=== PATIENT | female | born 1945 | race Two or more races ===

== ENCOUNTER 2018-04-18 12:22 | Inpatient (IN) | payer MEDICARE ==
[~2018-04-18] VITALS: Ht 152.4 cm; Wt 40.5 kg
[~2018-04-18 12:22] MED LIST: ASPI-482 PO; CHOL200044 PO; CLOP75TA PO; CRESTOR40 MG PO; INSU100V8 SQ; LISI-338 PO; METF10007 PO; PIOG30TA62 PO
[2018-04-18] MEDS ORDERED: IV NORMAL SALINE 1000ML BAG 1,000 ML IV ONE (13:15)
[2018-04-18] MEDS ORDERED: FAMOTIDINE 20 MG/2 ML VIAL IVP ONE (13:15)
[2018-04-18 13:32] LABS: BASO % 1 % (0-3); EOS % 0 % (0-3); HEMATOCRIT 42.8 % (36.0-47.0); LYMPH # 0.8 x10^3/uL (1.0-4.8); LYMPH % 14 % (24-48); MEAN CORPUSCULAR HEMOGLOBIN 31 pg (25-35); MEAN CORPUSCULAR HGB CONC 33 g/dL (31-37); MEAN CORPUSCULAR VOLUME 94 fL (79-100); MONO # 0.3 x10^3/uL (0.0-1.1); MONO % 5 % (0-9); NEUT # 4.9 x10^3uL (1.8-7.7); NEUT % 80 % (31-73); PLATELET COUNT 342 x10^3/uL (140-400); RED BLOOD COUNT 4.55 x10^6/uL (3.50-5.40); RED CELL DISTRIBUTION WIDTH 13.2 % (11.5-14.5); WHITE BLOOD COUNT 6.1 x10^3/uL (4.0-11.0)
[2018-04-18] MEDS ORDERED: BARIUM SULFATE 96% 397 GM ENEMA. PR ONE (14:00)
[2018-04-18] MEDS ORDERED: BARIUM SULFATE 60% 355 ML SUSP PO ONE (14:00)
[2018-04-18 14:14] LABS: CALCIUM 8.9 mg/dL (8.5-10.1); CREATININE 0.6 mg/dL (0.6-1.0)
[2018-04-18 14:21] LABS: ALBUMIN 3.5 g/dL (3.4-5.0); ALBUMIN/GLOBULIN RATIO 1.1 (1.0-1.7); TOTAL BILIRUBIN 0.3 mg/dL (0.2-1.0); TOTAL PROTEIN 6.8 g/dL (6.4-8.2)
--- NOTE | 2018-04-18 14:48 | RAD ---
EXAM: Chest, 2 views. HISTORY: Dysphagia. COMPARISON: None. FINDINGS: 2 views of the chest are obtained. There is emphysema with biapical pleural parenchymal scarring. There is no infiltrate, pleural effusion or pneumothorax. There is mild enlargement of the cardiac silhouette. There is thoracolumbar scoliosis. IMPRESSION: 1. Emphysema with apical pleural-parenchymal scarring. 2. Cardiomegaly. Electronically signed by: Eloina Enriquez MD (04/18/2018 2:46 PM) [id number]
[2018-04-18 14:58] LABS: BILIRUBIN,URINE MODERATE (NEG); CLARITY,URINE CLEAR; COLOR,URINE YELLOW; NITRITE,URINE NEGATIVE (NEG); PROTEIN,URINE 100 mg/dL (NEG-TRACE)
--- NOTE | 2018-04-18 15:11 | RAD ---
Esophagram, 04/18/2018: HISTORY: Dysphagia Study was performed utilizing thin liquid barium. 3.0 minutes of fluoroscopy time was utilized. 8 static and dynamic fluoroscopic sequence is were recorded. The exam was limited due to patient nausea and subsequent vomiting. The swallowing mechanism is intact. No obstructive process is seen in the cervical esophagus. No aspiration was observed. There is partial obstruction to flow of the liquid barium through the upper thoracic esophagus due to a severe smooth stricture. This narrowing begins at the level of the aortic arch and extends inferiorly approximately 3-4 cm. The esophagus narrows down to a diameter of 3-4 mm at its narrowest point. The esophagus superior to this level is dilated and contains fluid and some debris. Inferior to this level the esophagus is not optimally distended due to the partial obstructive effect at the stricture, however, no distal esophageal abnormality or hiatal hernia was identified. IMPRESSION: Severe upper thoracic esophageal stricture which could be neoplastic or inflammatory. Endoscopic evaluation is suggested. Electronically signed by: Karthik Barber MD (04/18/2018 3:08 PM) [facility]
[2018-04-18 15:20] LABS: BACTERIA,URINE MANY /HPF (0-FEW); HYALINE CASTS, URINE FEW /HPF; RBC,URINE 0 /HPF (0-2); SQUAMOUS EPITHELIAL CELL,UR MANY /LPF; WBC,URINE >40 /HPF (0-4)
[2018-04-18] MEDS ORDERED: ONDANSETRON PF 4 MG/2 ML VIAL. IV PRN (15:45)
[2018-04-18] MEDS ORDERED: fentaNYL PF VIAL 100 MCG/2 ML VIAL IV PRN (15:45)
--- NOTE | 2018-04-18 16:06 | PDOC1 ---
History and Physical Date of Admission Date of Admission DATE: 04/18/18 TIME: 16:00 Identification/Chief Complaint Chief Complaint cant swallow pills or water x 5 days Source Source: Caregiver, Chart review, Patient History of Present Illness History of Present Illness VEry pleasant 72 F good IADLs and ADLS, cant swallow pills & water x 5 days, raspy voice x 5 days, 4 lb weight loss they claim bec cant take anything just for daniel last few days, Prev smoker, quit 7 mos ago, smoked x 40 yrs, NO other probs aside from DM on insulin 6 units qhs and oHA and lisinopril 5 for proteinuria, Sandra BROWN mD, ordered esophagogram, severe stenosis Upper 1/3 esophagus, cant r.o malignancy or inflammation, Admitted henceforth She is aware of findings Past Medical History Renal/: Other (proteinuria) Endocrine: Diabetes Past Surgical History Past Surgical History: No pertinent history Family History Family History: No Significant Social History Smoke: Quit ALCOHOL: none Drugs: None Current Medications Current Medications Current Medications Sodium Chloride 1,000 ml @ 1,000 mls/hr 1X ONCE IV Last administered on at 13:21; Start 04/18/18 at 13:15; Stop 04/18/18 at 14:14; Status DC Famotidine (Pepcid Vial) 20 mg 1X ONCE IVP Last administered on 04/18/18at 13: 22; Start 04/18/18 at 13:15; Stop 04/18/18 at 13:16; Status DC Barium Sulfate (Polibar Acb) 397 gm 1X ONCE TN ; Start 04/18/18 at 14:00; Stop 04/18/18 at 14:01; Status DC Barium Sulfate (Liquid E-Z Paque) 355 ml 1X ONCE PO Last administered on at 14:20; Start 04/18/18 at 14:00; Stop 04/18/18 at 14:01; Status DC Ondansetron HCl (Zofran) 4 mg PRN Q8HRS PRN IV NAUSEA/VOMITING; Start 04/18/18 at 15:45; Stop 04/19/18 at 15:44 Fentanyl Citrate (Fentanyl 2ml Vial) 50 mcg PRN Q1HR PRN IV PAIN; Start at 15:45; Stop 04/19/18 at 15:44 Sodium Chloride 1,000 ml @ 125 mls/hr Q8H IV ; Start 04/18/18 at 15:40; Stop at 15:39 Famotidine (Pepcid Vial) 20 mg QHS IVP ; Start 04/18/18 at 21:00 Active Scripts Active Reported Metformin Hcl 1,000 Mg Tablet 1,000 Mg PO BID Aspir 81 (Aspirin) 81 Mg Tablet.dr 81 Mg PO DAILY Crestor (Rosuvastatin Calcium) 40 Mg Tablet 40 Mg PO HS Lantus (Insulin Glargine,Hum.rec.anlog) 100 Unit/1 Ml Vial 100 Unit SQ HS D3-2000 (Cholecalciferol (Vitamin D3)) 2,000 Unit Capsule 5,000 Unit PO Pioglitazone Hcl 30 Mg Tablet 30 Mg PO DAILY Lisinopril 5 Mg Tablet 5 Mg PO DAILY Clopidogrel (Clopidogrel Bisulfate) 75 Mg Tablet 75 Mg PO DAILY Allergies Allergies: Coded Allergies: erythromycin base (Verified Allergy, Intermediate, 04/18/18) lisinopril (Verified Allergy, Intermediate, 04/18/18) losartan (Verified Allergy, Intermediate, 04/18/18) ROS Review of System as per HPI< all else is neg 14 pt Physical Exam General: No acute distress, Other (raspy voice) HEENT: Atraumatic, PERRLA Lungs: Clear to auscultation, Normal air movement Heart: S1S2, RRR, no thrills, no rubs, no gallops, no murmurs Cardiovascular: S1, S2 Breasts: Normal, Rt breast nml w/o mass, Lt breast nml w/o mass, Nipples normal Abdomen: Normal bowel sounds, Soft, No tenderness, No hepatosplenomegaly, No masses Rectal Exam: not examined PELVIC: Nml ext genitalia Extremities: No clubbing, No cyanosis, No edema, Normal pulses, No tenderness/ swelling Skin: No rashes, No breakdown, Other (minmal sub Q) Neuro: Normal gait, Strength at 5/5 X4 ext, Normal tone, Sensation intact, Cranial nerves 3-12 NL, Reflexes 2+, Other (raspy voice) Psych/Mental Status: Mental status NL, Mood NL Vitals Vitals Vital Signs Date Time Temp Pulse Resp B/P (MAP) Pulse Ox O2 Delivery O2 Flow Rate FiO2 04/18/18 12:42 98.4 104 16 133/61 (85) 99 Room Air 98.4 Labs Labs Laboratory Tests Test 04/18/18 12:51 04/18/18 13:13 04/18/18 13:45 04/18/18 14:40 Glucose (Fingerstick) 110 mg/dL (70-99) White Blood Count 6.1 x10^3/uL (4.0-11.0) Red Blood Count 4.55 x10^6/uL (3.50-5.40) Hemoglobin 14.0 g/dL (12.0-15.5) Hematocrit 42.8 % (36.0-47.0) Mean Corpuscular Volume 94 fL (79-100) Mean Corpuscular Hemoglobin 31 pg (25-35) Mean Corpuscular Hemoglobin Concent 33 g/dL (31-37) Red Cell Distribution Width 13.2 % (11.5-14.5) Platelet Count 342 x10^3/uL (140-400) Neutrophils (%) (Auto) 80 % (31-73) Lymphocytes (%) (Auto) 14 % (24-48) Monocytes (%) (Auto) 5 % (0-9) Eosinophils (%) (Auto) 0 % (0-3) Basophils (%) (Auto) 1 % (0-3) Neutrophils # (Auto) 4.9 x10^3uL (1.8-7.7) Lymphocytes # (Auto) 0.8 x10^3/uL (1.0-4.8) Monocytes # (Auto) 0.3 x10^3/uL (0.0-1.1) Eosinophils # (Auto) 0.0 x10^3/uL (0.0-0.7) Basophils # (Auto) 0.0 x10^3/uL (0.0-0.2) Sodium Level 145 mmol/L (136-145) Potassium Level 3.0 mmol/L (3.5-5.1) Chloride Level 105 mmol/L (98-107) Carbon Dioxide Level 25 mmol/L (21-32) Anion Gap 15 (6-14) Blood Urea Nitrogen 17 mg/dL (7-20) Creatinine 0.6 mg/dL (0.6-1.0) Estimated GFR (Cockcroft-Gault) 98.0 BUN/Creatinine Ratio 28 (6-20) Glucose Level 97 mg/dL (70-99) Calcium Level 8.9 mg/dL (8.5-10.1) Total Bilirubin 0.3 mg/dL (0.2-1.0) Aspartate Amino Transf (AST/SGOT) 13 U/L (15-37) Alanine Aminotransferase (ALT/SGPT) 17 U/L (14-59) Alkaline Phosphatase 68 U/L (46-116) Total Protein 6.8 g/dL (6.4-8.2) Albumin 3.5 g/dL (3.4-5.0) Albumin/Globulin Ratio 1.1 (1.0-1.7) Urine Collection Type Void Urine Color Yellow Urine Clarity Clear Urine pH 5.0 Urine Specific [place] 1.025 Urine Protein 100 mg/dL (NEG-TRACE) Urine Glucose (UA) Negative mg/dL (NEG) Urine Ketones (Stick) >=80 mg/dL (NEG) Urine Blood Negative (NEG) Urine Nitrite Negative (NEG) Urine Bilirubin Moderate (NEG) Urine Urobilinogen Dipstick 1.0 mg/dL (0.2 mg/dL) Urine Leukocyte Esterase Moderate (NEG) Urine RBC 0 /HPF (0-2) Urine WBC >40 /HPF (0-4) Urine Squamous Epithelial Cells Many /LPF Urine Bacteria Many /HPF (0-FEW) Urine Hyaline Casts Few /HPF Urine Mucus Marked /LPF Laboratory Tests Test 04/18/18 12:51 04/18/18 13:13 04/18/18 13:45 04/18/18 14:40 Glucose (Fingerstick) 110 mg/dL (70-99) White Blood Count 6.1 x10^3/uL (4.0-11.0) Red Blood Count 4.55 x10^6/uL (3.50-5.40) Hemoglobin 14.0 g/dL (12.0-15.5) Hematocrit 42.8 % (36.0-47.0) Mean Corpuscular Volume 94 fL (79-100) Mean Corpuscular Hemoglobin 31 pg (25-35) Mean Corpuscular Hemoglobin Concent 33 g/dL (31-37) Red Cell Distribution Width 13.2 % (11.5-14.5) Platelet Count 342 x10^3/uL (140-400) Neutrophils (%) (Auto) 80 % (31-73) Lymphocytes (%) (Auto) 14 % (24-48) Monocytes (%) (Auto) 5 % (0-9) Eosinophils (%) (Auto) 0 % (0-3) Basophils (%) (Auto) 1 % (0-3) Neutrophils # (Auto) 4.9 x10^3uL (1.8-7.7) Lymphocytes # (Auto) 0.8 x10^3/uL (1.0-4.8) Monocytes # (Auto) 0.3 x10^3/uL (0.0-1.1) Eosinophils # (Auto) 0.0 x10^3/uL (0.0-0.7) Basophils # (Auto) 0.0 x10^3/uL (0.0-0.2) Sodium Level 145 mmol/L (136-145) Potassium Level 3.0 mmol/L (3.5-5.1) Chloride Level 105 mmol/L (98-107) Carbon Dioxide Level 25 mmol/L (21-32) Anion Gap 15 (6-14) Blood Urea Nitrogen 17 mg/dL (7-20) Creatinine 0.6 mg/dL (0.6-1.0) Estimated GFR (Cockcroft-Gault) 98.0 BUN/Creatinine Ratio 28 (6-20) Glucose Level 97 mg/dL (70-99) Calcium Level 8.9 mg/dL (8.5-10.1) Total Bilirubin 0.3 mg/dL (0.2-1.0) Aspartate Amino Transf (AST/SGOT) 13 U/L (15-37) Alanine Aminotransferase (ALT/SGPT) 17 U/L (14-59) Alkaline Phosphatase 68 U/L (46-116) Total Protein 6.8 g/dL (6.4-8.2) Albumin 3.5 g/dL (3.4-5.0) Albumin/Globulin Ratio 1.1 (1.0-1.7) Urine Collection Type Void Urine Color Yellow Urine Clarity Clear Urine pH 5.0 Urine Specific [place] 1.025 Urine Protein 100 mg/dL (NEG-TRACE) Urine Glucose (UA) Negative mg/dL (NEG) Urine Ketones (Stick) >=80 mg/dL (NEG) Urine Blood Negative (NEG) Urine Nitrite Negative (NEG) Urine Bilirubin Moderate (NEG) Urine Urobilinogen Dipstick 1.0 mg/dL (0.2 mg/dL) Urine Leukocyte Esterase Moderate (NEG) Urine RBC 0 /HPF (0-2) Urine WBC >40 /HPF (0-4) Urine Squamous Epithelial Cells Many /LPF Urine Bacteria Many /HPF (0-FEW) Urine Hyaline Casts Few /HPF Urine Mucus Marked /LPF VTE Prophylaxis Ordered VTE Prophylaxis Devices: Yes VTE Pharmacological Prophylaxi: Yes Assessment/Plan Assessment/Plan 1. Severe esophageal stenosis, upper 1/3 - need to r.o malignancy causing stenosis/obstruction 2. Weight loss 4 lbs 3. Ex smoker, emphysematous lungs 4. Proteinuria hx - off lisinopril? 5. DM 2 on 6 units qhs and OHA PLAN: NPO, IVF while NPO EGD GI consult HOld off ALL po meds, hold off insulin Dw family, seen at RAOUL HAN MD Apr 18, 2018 16:06
--- NOTE | 2018-04-18 16:37 | PDOC2 ---
GI CONSULT Reason For Consult: Esophageal stricture HPI: HPI: 72 y/o female seen in ER w/ pending admission. Reports 4-5 days of abnormal swallowing. Occurs with solids, liquids, and pills. Denies dysphagia or globus - says she takes small bites and "it goes down but the comes back up" second or minutes later w/ phlegm. No odynophagia, n/v, abd pain, or reflux/ heartburn. Reports 4 pound weight loss during this time. Prior to onset of symptoms, was eating and drinking w/o issue and maintaining weight. Similar symptoms occurred 40 years ago - says related to hiatal hernia and Dr. Varner had to stretch her throat. Her daughter was ill recently w/ vomiting and coughing - she initially thought she was ill with the same. Labs unrevealing except K+ 3. Esophagram ordered in the ER showed severe upper thoracic esophageal stricture ( down to 3-4mm). Denies diarrhea, constipation, hematemesis, hematochezia, or melena. Hasn't stooled in a couple days w/ decreased oral intake. Reports two normal colonoscopies since age 49. Denies GB, liver, PUD, or pancreas history. H/o anemia while on Plavix and ASA in the past - she no longer takes these but has continued PO iron QD and B12 inj every other month. She asks me to write down my name and credentials. PMH: PMH: carotid artery disease, anemia, DM, proteinuria right wrist surgery FH: Family History: No pertinent hx Social History: Smoke: Quit ALCOHOL: none Drugs: None ROS: GEN: Denies fevers, chills, sweats HEENT: Denies blurred vision, sore throat CV: Denies chest pain RESP: Denies shortness of air, cough GI: Per HPI : Denies hematuria, dysuria ENDO: +weight loss NEURO: Denies confusion, dizziness MSK: Denies weakness, joint pain/swelling SKIN: Denies jaundice, pruritus Vitals: Vitals: Vital Signs Date Time Temp Pulse Resp B/P (MAP) Pulse Ox O2 Delivery O2 Flow Rate FiO2 04/18/18 12:42 98.4 104 16 133/61 (85) 99 Room Air 98.4 Labs: Labs: Laboratory Tests Test 04/18/18 12:51 04/18/18 13:13 04/18/18 13:45 04/18/18 14:40 Glucose (Fingerstick) 110 mg/dL (70-99) White Blood Count 6.1 x10^3/uL (4.0-11.0) Red Blood Count 4.55 x10^6/uL (3.50-5.40) Hemoglobin 14.0 g/dL (12.0-15.5) Hematocrit 42.8 % (36.0-47.0) Mean Corpuscular Volume 94 fL (79-100) Mean Corpuscular Hemoglobin 31 pg (25-35) Mean Corpuscular Hemoglobin Concent 33 g/dL (31-37) Red Cell Distribution Width 13.2 % (11.5-14.5) Platelet Count 342 x10^3/uL (140-400) Neutrophils (%) (Auto) 80 % (31-73) Lymphocytes (%) (Auto) 14 % (24-48) Monocytes (%) (Auto) 5 % (0-9) Eosinophils (%) (Auto) 0 % (0-3) Basophils (%) (Auto) 1 % (0-3) Neutrophils # (Auto) 4.9 x10^3uL (1.8-7.7) Lymphocytes # (Auto) 0.8 x10^3/uL (1.0-4.8) Monocytes # (Auto) 0.3 x10^3/uL (0.0-1.1) Eosinophils # (Auto) 0.0 x10^3/uL (0.0-0.7) Basophils # (Auto) 0.0 x10^3/uL (0.0-0.2) Sodium Level 145 mmol/L (136-145) Potassium Level 3.0 mmol/L (3.5-5.1) Chloride Level 105 mmol/L (98-107) Carbon Dioxide Level 25 mmol/L (21-32) Anion Gap 15 (6-14) Blood Urea Nitrogen 17 mg/dL (7-20) Creatinine 0.6 mg/dL (0.6-1.0) Estimated GFR (Cockcroft-Gault) 98.0 BUN/Creatinine Ratio 28 (6-20) Glucose Level 97 mg/dL (70-99) Calcium Level 8.9 mg/dL (8.5-10.1) Total Bilirubin 0.3 mg/dL (0.2-1.0) Aspartate Amino Transf (AST/SGOT) 13 U/L (15-37) Alanine Aminotransferase (ALT/SGPT) 17 U/L (14-59) Alkaline Phosphatase 68 U/L (46-116) Total Protein 6.8 g/dL (6.4-8.2) Albumin 3.5 g/dL (3.4-5.0) Albumin/Globulin Ratio 1.1 (1.0-1.7) Urine Collection Type Void Urine Color Yellow Urine Clarity Clear Urine pH 5.0 Urine Specific [place] 1.025 Urine Protein 100 mg/dL (NEG-TRACE) Urine Glucose (UA) Negative mg/dL (NEG) Urine Ketones (Stick) >=80 mg/dL (NEG) Urine Blood Negative (NEG) Urine Nitrite Negative (NEG) Urine Bilirubin Moderate (NEG) Urine Urobilinogen Dipstick 1.0 mg/dL (0.2 mg/dL) Urine Leukocyte Esterase Moderate (NEG) Urine RBC 0 /HPF (0-2) Urine WBC >40 /HPF (0-4) Urine Squamous Epithelial Cells Many /LPF Urine Bacteria Many /HPF (0-FEW) Urine Hyaline Casts Few /HPF Urine Mucus Marked /LPF Allergies: Coded Allergies: erythromycin base (Verified Allergy, Intermediate, 04/18/18) lisinopril (Verified Allergy, Intermediate, 04/18/18) losartan (Verified Allergy, Intermediate, 04/18/18) Medications: Current Medications Medications (Trade) Dose Ordered Sig/Ross Route PRN Reason Start Time Stop Time Status Last Admin Dose Admin Sodium Chloride 1,000 ml @ 1,000 mls/hr 1X ONCE IV 04/18/18 13:15 04/18/18 14:14 DC 04/18/18 13:21 Famotidine (Pepcid Vial) 20 mg 1X ONCE IVP 04/18/18 13:15 04/18/18 13:16 DC 04/18/18 13:22 Barium Sulfate (Liquid E-Z Paque) 355 ml 1X ONCE PO 04/18/18 14:00 04/18/18 14:01 DC 04/18/18 14:20 Imaging: Imaging: CXR IMPRESSION: 1. Emphysema with apical pleural-parenchymal scarring. 2. Cardiomegaly. Esophagram IMPRESSION: Severe upper thoracic esophageal stricture which could be neoplastic or inflammatory. Endoscopic evaluation is suggested. PE: GEN: NAD, thin HEENT: Atraumatic, PERRL, voice is soft/weak LUNGS: CTAB HEART: mildly tachycardic ABD: NABS, S/ND/NT, ?bruit EXTREMITY: No edema SKIN: No rashes, no jaundice NEURO/PSYCH: A & O 3 A/P: A/P: Regurgitation, weight loss, hoarseness Hypokalemia Esophageal stricture - describes regurgitation x 4-5 days, reports h/o esophageal dilation years ago CRC screen - reports two normal colonoscopies in the past H/o anemia on iron and B12 - Hgb WNL now H/o tobacco use - quit 7 months ago -- Would benefit from EGD - will review timing w/ Dr. Olsen. Will give PPI in place of H2 marco. CANDICE ZURITA Apr 18, 2018 16:37
--- NOTE | 2018-04-18 17:16 | PHYS DOC ---
Past Medical History Past Medical History: Diabetes-Type II Past Surgical History: Other Additional Past Surgical Histo: right wrist Alcohol Use: None Drug Use: None Adult General Chief Complaint Chief Complaint: DIFFICULTY SWALLOWING HPI HPI 72-year-old female who has not felt well for some time presents secondary to progressive dysphagia. Family states that she has been on having difficulty swallowing solids for some time but over the last 4 days she's really been unable to tolerate liquids. She states she tries to drink and hears a gurgling in her chest. Patient states she has lost several pounds over the last 1-2 weeks. She's not had any fever chills or sweats. She does not remember eating anything that got lodged in her esophagus. She does admit to having some epigastric pain and associated nausea. She denies any hematemesis. She has no history of cancer. Also been coughing up a lot of phlegm.[] Review of Systems Review of Systems Constitutional: Denies fever or chills [] Eyes: Denies change in visual acuity, redness, or eye pain [] HENT: Denies nasal congestion or sore throat [] Respiratory: Per history of present illness[] Cardiovascular: No additional information not addressed in HPI [] GI: Per history of present illness[] : Denies dysuria or hematuria [] Musculoskeletal: Denies back pain or joint pain [] Integument: Denies rash or skin lesions [] Neurologic: Denies headache, focal weakness or sensory changes [] Endocrine: Denies polyuria or polydipsia [] All other systems were reviewed and found to be within normal limits, except as documented in this note. Current Medications Current Medications Current Medications Medications (Trade) Dose Ordered Sig/Ross Start Time Stop Time Status Last Admin Dose Admin Barium Sulfate (Liquid E-Z Paque) 355 ml 1X ONCE 04/18/18 14:00 04/18/18 14:01 DC 04/18/18 14:20 355 ML Barium Sulfate (Polibar Acb) 397 gm 1X ONCE 04/18/18 14:00 04/18/18 14:01 DC Famotidine (Pepcid Vial) 20 mg 1X ONCE 04/18/18 13:15 04/18/18 13:16 DC 04/18/18 13:22 20 MG Sodium Chloride 1,000 ml @ 125 mls/hr Q8H 04/18/18 15:40 04/19/18 15:39 Allergies Allergies Allergies Coded Allergies Type Severity Reaction Last Updated Verified erythromycin base Allergy Intermediate 04/18/18 Yes lisinopril Allergy Intermediate 04/18/18 Yes losartan Allergy Intermediate 04/18/18 Yes Physical Exam Physical Exam Constitutional: Cachectic, chronically ill-appearing female in mild to moderate distress[] HENT: Normocephalic, atraumatic, bilateral external ears normal, oropharynx moist, no oral exudates, nose normal. [] Eyes: PERRLA, EOMI, conjunctiva normal, no discharge. [] Neck: Normal range of motion, no tenderness, supple, no stridor. [] Cardiovascular:Heart rate regular rhythm, no murmur [] Lungs & Thorax: Bilateral breath sounds clear to auscultation [] Abdomen: Bowel sounds normal, soft, no tenderness, no masses, no pulsatile masses. [] Skin: Warm, dry, no erythema, no rash. [] Back: No tenderness, no CVA tenderness. [] Extremities: No tenderness, no cyanosis, no clubbing, ROM intact, no edema. [] Neurologic: Alert and oriented X 3, normal motor function, normal sensory function, no focal deficits noted. [] Psychologic: Anxious. [] Current Patient Data Vital Signs Vital Signs Date Time Temp Pulse Resp B/P (MAP) Pulse Ox O2 Delivery O2 Flow Rate FiO2 04/18/18 15:16 94 16 135/62 (86) 99 04/18/18 14:46 Room Air 04/18/18 12:42 98.4 98.4 Lab Values Laboratory Tests Test 04/18/18 12:51 04/18/18 13:13 04/18/18 13:45 04/18/18 14:40 Glucose (Fingerstick) 110 mg/dL (70-99) H White Blood Count 6.1 x10^3/uL (4.0-11.0) Red Blood Count 4.55 x10^6/uL (3.50-5.40) Hemoglobin 14.0 g/dL (12.0-15.5) Hematocrit 42.8 % (36.0-47.0) Mean Corpuscular Volume 94 fL (79-100) Mean Corpuscular Hemoglobin 31 pg (25-35) Mean Corpuscular Hemoglobin Concent 33 g/dL (31-37) Red Cell Distribution Width 13.2 % (11.5-14.5) Platelet Count 342 x10^3/uL (140-400) Neutrophils (%) (Auto) 80 % (31-73) H Lymphocytes (%) (Auto) 14 % (24-48) L Monocytes (%) (Auto) 5 % (0-9) Eosinophils (%) (Auto) 0 % (0-3) Basophils (%) (Auto) 1 % (0-3) Neutrophils # (Auto) 4.9 x10^3uL (1.8-7.7) Lymphocytes # (Auto) 0.8 x10^3/uL (1.0-4.8) L Monocytes # (Auto) 0.3 x10^3/uL (0.0-1.1) Eosinophils # (Auto) 0.0 x10^3/uL (0.0-0.7) Basophils # (Auto) 0.0 x10^3/uL (0.0-0.2) Sodium Level 145 mmol/L (136-145) Potassium Level 3.0 mmol/L (3.5-5.1) L Chloride Level 105 mmol/L (98-107) Carbon Dioxide Level 25 mmol/L (21-32) Anion Gap 15 (6-14) H Blood Urea Nitrogen 17 mg/dL (7-20) Creatinine 0.6 mg/dL (0.6-1.0) Estimated GFR (Cockcroft-Gault) 98.0 BUN/Creatinine Ratio 28 (6-20) H Glucose Level 97 mg/dL (70-99) Calcium Level 8.9 mg/dL (8.5-10.1) Total Bilirubin 0.3 mg/dL (0.2-1.0) Aspartate Amino Transferase (AST) 13 U/L (15-37) L Alanine Aminotransferase (ALT) 17 U/L (14-59) Alkaline Phosphatase 68 U/L (46-116) Total Protein 6.8 g/dL (6.4-8.2) Albumin 3.5 g/dL (3.4-5.0) Albumin/Globulin Ratio 1.1 (1.0-1.7) Urine Collection Type Void Urine Color Yellow Urine Clarity Clear Urine pH 5.0 Urine Specific [place] 1.025 Urine Protein 100 mg/dL (NEG-TRACE) Urine Glucose (UA) Negative mg/dL (NEG) Urine Ketones (Stick) >=80 mg/dL (NEG) Urine Blood Negative (NEG) Urine Nitrite Negative (NEG) Urine Bilirubin Moderate (NEG) Urine Urobilinogen Dipstick 1.0 mg/dL (0.2 mg/dL) Urine Leukocyte Esterase Moderate (NEG) Urine RBC 0 /HPF (0-2) Urine WBC >40 /HPF (0-4) Urine Squamous Epithelial Cells Many /LPF Urine Bacteria Many /HPF (0-FEW) Urine Hyaline Casts Few /HPF Urine Mucus Marked /LPF Laboratory Tests 04/18/18 13:13 Laboratory Tests 04/18/18 13:45 EKG EKG [] Radiology/Procedures Radiology/Procedures [] Impressions: PROCEDURE: ESOPHAGRAM/BARIUM SWALLOW Esophagram, 04/18/2018: HISTORY: Dysphagia Study was performed utilizing thin liquid barium. 3.0 minutes of fluoroscopy time was utilized. 8 static and dynamic fluoroscopic sequence is were recorded. The exam was limited due to patient nausea and subsequent vomiting. The swallowing mechanism is intact. No obstructive process is seen in the cervical esophagus. No aspiration was observed. There is partial obstruction to flow of the liquid barium through the upper thoracic esophagus due to a severe smooth stricture. This narrowing begins at the level of the aortic arch and extends inferiorly approximately 3-4 cm. The esophagus narrows down to a diameter of 3-4 mm at its narrowest point. The esophagus superior to this level is dilated and contains fluid and some debris. Inferior to this level the esophagus is not optimally distended due to the partial obstructive effect at the stricture, however, no distal esophageal abnormality or hiatal hernia was identified. IMPRESSION: Severe upper thoracic esophageal stricture which could be neoplastic or inflammatory. Endoscopic evaluation is suggested. Course & Med Decision Making Course & Med Decision Making Pertinent Labs and Imaging studies reviewed. (See chart for details) [ED course: Evaluation reveals a 72-year-old female with what appears to be an esophageal stricture. Given her weight loss and general cachectic appearance I believe cancer is highly likely. I have asked to admit the patient with a GI consult.] Dragon Disclaimer Dragon Disclaimer This electronic medical record was generated, in whole or in part, using a voice recognition dictation system. Departure Departure Impression: Primary Impression: Esophageal stricture Disposition: 09 ADMITTED INPATIENT Admitting Physician: Hayde Blanchard Condition: GUARDED Referrals: NOELLE QUIGLEY (PCP) SREEDHAR MENDEZ DO Apr 18, 2018 17:16
[2018-04-18] MEDS ORDERED: FERR325T14 PO (19:06)
[2018-04-18] MEDS ORDERED: ASCO500C9 PO (19:06)
[2018-04-18 19:20] VITALS: BP 134/55
[2018-04-18] MEDS ORDERED: FAMOTIDINE 20 MG/2 ML VIAL IVP SCH (21:00)
[2018-04-18 23:20] VITALS: BP 125/55
[2018-04-19] MEDS: IV NORMAL SALINE 1000ML BAG 1,000 ML IV SCH ×2 (00:05→08:31)
[2018-04-19 03:20] VITALS: BP 121/54
[2018-04-19 07:00] VITALS: BP 111/52
[2018-04-19] MEDS ORDERED: PANTOPRAZOLE IV PUSH 40 MG VIAL. IVP SCH (07:30)
[2018-04-19 07:41] LABS: HEMATOCRIT 37.6 % (36.0-47.0); HEMOGLOBIN 12.5 g/dL (12.0-15.5); RED BLOOD COUNT 3.97 x10^6/uL (3.50-5.40); RED CELL DISTRIBUTION WIDTH 13.5 % (11.5-14.5)
[2018-04-19 07:55] LABS: CALCIUM 8.6 mg/dL (8.5-10.1); CREATININE 0.4 mg/dL (0.6-1.0); GFR 156.5
[2018-04-19 08:00] LABS: POTASSIUM 2.9 mmol/L (3.5-5.1)
[2018-04-19] MEDS: POTASSIUM CHLORIDE 10MEQ 100 ML IV SCH ×4 (08:32→23:45)
[2018-04-19] MEDS ORDERED: DEXTROSE 50% 25 GM / 50ML DISP.SYRIN. IV PRN (09:00)
[2018-04-19] MEDS: IV RINGERS,LACTATED 1000ML 1,000 ML IV SCH ×2 (10:11→18:11)
[2018-04-19] MEDS ORDERED: LIDOCAINE 1% PF 2 ML VIAL. ID PRN (10:15)
[2018-04-19] MEDS ORDERED: MIDAZOLAM HCL/PF 2 MG/2 ML VIAL. IV PRN (10:15)
[2018-04-19] MEDS ORDERED: fentaNYL PF VIAL 100 MCG/2 ML VIAL IV PRN ×2 (10:15)
[2018-04-19 11:00] VITALS: BP 131/84
[2018-04-19] MEDS ORDERED: PROPOFOL 20 ML IV ONE (12:52)
--- NOTE | 2018-04-19 13:17 | PDOC4 ---
PROCEDURE Procedure EGD acute dysphagia for 5 days and stricture on barium study\ anesthesia - propofol Findings; food bolus in mid thoracic esophagus- removed by piecemeal pushing into stomach- use ramirez dilators 34, 40 and 44 to move food into stomach and dilate the esophageal stricture esophagitis at site and just distal benign stricture Stomach- normal Plan- liquid then soft diet ppi repeat EGD with dilation in 3-4 weeks KASSI TORRES MD Apr 19, 2018 13:17
[2018-04-19 14:33] VITALS: BP 136/55
--- NOTE | 2018-04-19 14:45 | NUR ---
SW following. Discussed with RN, pt is from home. Pt having an EGD this afternoon. SW will continue to follow for discharge planning.
[2018-04-19] MEDS: PANTOPRAZOLE 40 MG TABLET.DR. PO SCH (16:30)
[2018-04-19 19:00] VITALS: BP 120/44
--- NOTE | 2018-04-19 21:56 | PDOC ---
PROGRESS NOTES Chief Complaint Chief Complaint Assessment/Plan 1. Severe esophageal stenosis, upper 1/3 - need to r.o malignancy causing stenosis/obstruction 2. Weight loss 4 lbs 3. Ex smoker, emphysematous lungs 4. Proteinuria hx - off lisinopril? 5. DM 2 on 6 units qhs and OHA PLAN: NPO, IVF while NPO EGD GI consult greatly appreciated HOld off ALL po meds, hold off insulin discussed with family at bedside. History of Present Illness History of Present Illness no acute evnets reported, no concerns during my visit. on her way to EGD suite Vitals Vitals Vital Signs Date Time Temp Pulse Resp B/P (MAP) Pulse Ox O2 Delivery O2 Flow Rate FiO2 04/19/18 19:00 98.1 77 17 120/44 (69) 97 Room Air 98.1 Physical Exam General: No acute distress, Other (raspy voice) Abdomen: Normal bowel sounds, Soft, No tenderness, No hepatosplenomegaly, No masses Extremities: No clubbing, No cyanosis, No edema, Normal pulses, No tenderness/ swelling Skin: No rashes, No breakdown, Other (minmal sub Q) Labs LABS Laboratory Tests Test 04/18/18 22:44 04/19/18 07:10 04/19/18 08:27 04/19/18 09:51 Glucose (Fingerstick) 86 mg/dL (70-99) 59 mg/dL (70-99) 145 mg/dL (70-99) White Blood Count 4.0 x10^3/uL (4.0-11.0) Red Blood Count 3.97 x10^6/uL (3.50-5.40) Hemoglobin 12.5 g/dL (12.0-15.5) Hematocrit 37.6 % (36.0-47.0) Mean Corpuscular Volume 95 fL (79-100) Mean Corpuscular Hemoglobin 32 pg (25-35) Mean Corpuscular Hemoglobin Concent 33 g/dL (31-37) Red Cell Distribution Width 13.5 % (11.5-14.5) Platelet Count 299 x10^3/uL (140-400) Sodium Level 147 mmol/L (136-145) Potassium Level 2.9 mmol/L (3.5-5.1) Chloride Level 106 mmol/L (98-107) Carbon Dioxide Level 24 mmol/L (21-32) Anion Gap 17 (6-14) Blood Urea Nitrogen 14 mg/dL (7-20) Creatinine 0.4 mg/dL (0.6-1.0) Estimated GFR (Cockcroft-Gault) 156.5 Glucose Level 73 mg/dL (70-99) Calcium Level 8.6 mg/dL (8.5-10.1) Test 04/19/18 11:11 04/19/18 14:40 04/19/18 16:08 04/19/18 17:40 Glucose (Fingerstick) 108 mg/dL (70-99) 78 mg/dL (70-99) 133 mg/dL (70-99) Potassium Level 3.5 mmol/L (3.5-5.1) Test 04/19/18 20:48 Glucose (Fingerstick) 184 mg/dL (70-99) Comment Review of Relevant I have reviewed the following items sky (where applicable) has been applied. Labs Laboratory Tests Test 04/18/18 12:51 04/18/18 13:13 04/18/18 13:45 04/18/18 14:40 Glucose (Fingerstick) 110 mg/dL (70-99) White Blood Count 6.1 x10^3/uL (4.0-11.0) Red Blood Count 4.55 x10^6/uL (3.50-5.40) Hemoglobin 14.0 g/dL (12.0-15.5) Hematocrit 42.8 % (36.0-47.0) Mean Corpuscular Volume 94 fL (79-100) Mean Corpuscular Hemoglobin 31 pg (25-35) Mean Corpuscular Hemoglobin Concent 33 g/dL (31-37) Red Cell Distribution Width 13.2 % (11.5-14.5) Platelet Count 342 x10^3/uL (140-400) Neutrophils (%) (Auto) 80 % (31-73) Lymphocytes (%) (Auto) 14 % (24-48) Monocytes (%) (Auto) 5 % (0-9) Eosinophils (%) (Auto) 0 % (0-3) Basophils (%) (Auto) 1 % (0-3) Neutrophils # (Auto) 4.9 x10^3uL (1.8-7.7) Lymphocytes # (Auto) 0.8 x10^3/uL (1.0-4.8) Monocytes # (Auto) 0.3 x10^3/uL (0.0-1.1) Eosinophils # (Auto) 0.0 x10^3/uL (0.0-0.7) Basophils # (Auto) 0.0 x10^3/uL (0.0-0.2) Sodium Level 145 mmol/L (136-145) Potassium Level 3.0 mmol/L (3.5-5.1) Chloride Level 105 mmol/L (98-107) Carbon Dioxide Level 25 mmol/L (21-32) Anion Gap 15 (6-14) Blood Urea Nitrogen 17 mg/dL (7-20) Creatinine 0.6 mg/dL (0.6-1.0) Estimated GFR (Cockcroft-Gault) 98.0 BUN/Creatinine Ratio 28 (6-20) Glucose Level 97 mg/dL (70-99) Calcium Level 8.9 mg/dL (8.5-10.1) Total Bilirubin 0.3 mg/dL (0.2-1.0) Aspartate Amino Transf (AST/SGOT) 13 U/L (15-37) Alanine Aminotransferase (ALT/SGPT) 17 U/L (14-59) Alkaline Phosphatase 68 U/L (46-116) Total Protein 6.8 g/dL (6.4-8.2) Albumin 3.5 g/dL (3.4-5.0) Albumin/Globulin Ratio 1.1 (1.0-1.7) Urine Collection Type Void Urine Color Yellow Urine Clarity Clear Urine pH 5.0 Urine Specific [place] 1.025 Urine Protein 100 mg/dL (NEG-TRACE) Urine Glucose (UA) Negative mg/dL (NEG) Urine Ketones (Stick) >=80 mg/dL (NEG) Urine Blood Negative (NEG) Urine Nitrite Negative (NEG) Urine Bilirubin Moderate (NEG) Urine Urobilinogen Dipstick 1.0 mg/dL (0.2 mg/dL) Urine Leukocyte Esterase Moderate (NEG) Urine RBC 0 /HPF (0-2) Urine WBC >40 /HPF (0-4) Urine Squamous Epithelial Cells Many /LPF Urine Bacteria Many /HPF (0-FEW) Urine Hyaline Casts Few /HPF Urine Mucus Marked /LPF Test 04/18/18 22:44 04/19/18 07:10 04/19/18 08:27 04/19/18 09:51 Glucose (Fingerstick) 86 mg/dL (70-99) 59 mg/dL (70-99) 145 mg/dL (70-99) White Blood Count 4.0 x10^3/uL (4.0-11.0) Red Blood Count 3.97 x10^6/uL (3.50-5.40) Hemoglobin 12.5 g/dL (12.0-15.5) Hematocrit 37.6 % (36.0-47.0) Mean Corpuscular Volume 95 fL (79-100) Mean Corpuscular Hemoglobin 32 pg (25-35) Mean Corpuscular Hemoglobin Concent 33 g/dL (31-37) Red Cell Distribution Width 13.5 % (11.5-14.5) Platelet Count 299 x10^3/uL (140-400) Sodium Level 147 mmol/L (136-145) Potassium Level 2.9 mmol/L (3.5-5.1) Chloride Level 106 mmol/L (98-107) Carbon Dioxide Level 24 mmol/L (21-32) Anion Gap 17 (6-14) Blood Urea Nitrogen 14 mg/dL (7-20) Creatinine 0.4 mg/dL (0.6-1.0) Estimated GFR (Cockcroft-Gault) 156.5 Glucose Level 73 mg/dL (70-99) Calcium Level 8.6 mg/dL (8.5-10.1) Test 04/19/18 11:11 04/19/18 14:40 04/19/18 16:08 04/19/18 17:40 Glucose (Fingerstick) 108 mg/dL (70-99) 78 mg/dL (70-99) 133 mg/dL (70-99) Potassium Level 3.5 mmol/L (3.5-5.1) Test 04/19/18 20:48 Glucose (Fingerstick) 184 mg/dL (70-99) Laboratory Tests Test 04/18/18 22:44 04/19/18 07:10 04/19/18 08:27 04/19/18 09:51 Glucose (Fingerstick) 86 mg/dL (70-99) 59 mg/dL (70-99) 145 mg/dL (70-99) White Blood Count 4.0 x10^3/uL (4.0-11.0) Red Blood Count 3.97 x10^6/uL (3.50-5.40) Hemoglobin 12.5 g/dL (12.0-15.5) Hematocrit 37.6 % (36.0-47.0) Mean Corpuscular Volume 95 fL (79-100) Mean Corpuscular Hemoglobin 32 pg (25-35) Mean Corpuscular Hemoglobin Concent 33 g/dL (31-37) Red Cell Distribution Width 13.5 % (11.5-14.5) Platelet Count 299 x10^3/uL (140-400) Sodium Level 147 mmol/L (136-145) Potassium Level 2.9 mmol/L (3.5-5.1) Chloride Level 106 mmol/L (98-107) Carbon Dioxide Level 24 mmol/L (21-32) Anion Gap 17 (6-14) Blood Urea Nitrogen 14 mg/dL (7-20) Creatinine 0.4 mg/dL (0.6-1.0) Estimated GFR (Cockcroft-Gault) 156.5 Glucose Level 73 mg/dL (70-99) Calcium Level 8.6 mg/dL (8.5-10.1) Test 04/19/18 11:11 04/19/18 14:40 04/19/18 16:08 04/19/18 17:40 Glucose (Fingerstick) 108 mg/dL (70-99) 78 mg/dL (70-99) 133 mg/dL (70-99) Potassium Level 3.5 mmol/L (3.5-5.1) Test 04/19/18 20:48 Glucose (Fingerstick) 184 mg/dL (70-99) Medications Current Medications Sodium Chloride 1,000 ml @ 1,000 mls/hr 1X ONCE IV Last administered on at 13:21; Start 04/18/18 at 13:15; Stop 04/18/18 at 14:14; Status DC Famotidine (Pepcid Vial) 20 mg 1X ONCE IVP Last administered on 04/18/18at 13: 22; Start 04/18/18 at 13:15; Stop 04/18/18 at 13:16; Status DC Barium Sulfate (Polibar Acb) 397 gm 1X ONCE OR ; Start 04/18/18 at 14:00; Stop 04/18/18 at 14:01; Status DC Barium Sulfate (Liquid E-Z Paque) 355 ml 1X ONCE PO Last administered on at 14:20; Start 04/18/18 at 14:00; Stop 04/18/18 at 14:01; Status DC Ondansetron HCl (Zofran) 4 mg PRN Q8HRS PRN IV NAUSEA/VOMITING; Start 04/18/18 at 15:45; Stop 04/19/18 at 15:44; Status DC Fentanyl Citrate (Fentanyl 2ml Vial) 50 mcg PRN Q1HR PRN IV PAIN; Start at 15:45; Stop 04/19/18 at 15:44; Status DC Sodium Chloride 1,000 ml @ 125 mls/hr Q8H IV Last administered on 04/19/18at 08 :31; Start 04/18/18 at 15:40; Stop 04/19/18 at 15:39; Status DC Famotidine (Pepcid Vial) 20 mg QHS IVP ; Start 04/18/18 at 21:00; Stop 04/18/18 at 21:00; Status DC Pantoprazole Sodium (PROTONIX VIAL for IV PUSH) 40 mg BIDAC IVP Last administered on 04/19/18at 09:06; Start 04/19/18 at 07:30; Stop 04/19/18 at 15:53 ; Status DC Potassium Chloride/Water 100 ml @ 100 mls/hr Q1H IV Last administered on at 10:30; Start 04/19/18 at 08:30; Stop 04/19/18 at 12:29; Status DC Dextrose (Dextrose 50%-Water Syringe) 12.5 gm PRN Q15MIN PRN IV SEE COMMENTS Last administered on 04/19/18at 09:06; Start 04/19/18 at 09:00 Midazolam HCl (Versed) 2 mg PRN 1X PRN IV PRIOR TO PROCEDURE; Start 04/19/18 at 10:15; Stop 04/20/18 at 10:14 Fentanyl Citrate (Fentanyl 2ml Vial) 25 mcg PRN Q5MIN PRN IV X 2 DOSES FOR PAIN ; Start 04/19/18 at 10:15; Stop 04/20/18 at 10:14 Fentanyl Citrate (Fentanyl 2ml Vial) 50 mcg PRN Q5MIN PRN IV X 2 DOSES FOR PAIN ; Start 04/19/18 at 10:15; Stop 04/20/18 at 10:14 Ringer's Solution 1,000 ml @ 125 mls/hr Q8H IV ; Start 04/19/18 at 10:11; Stop 04/19/18 at 22:10 Lidocaine HCl (Xylocaine-Mpf 1% 2ml Vial) 2 ml 1X PRN PRN ID IV START; Start at 10:15; Stop 04/20/18 at 10:14 Propofol 20 ml @ As Directed STK-MED ONCE IV ; Start 04/19/18 at 12:52; Stop 01/26 at 12:53; Status DC Pantoprazole Sodium (Protonix) 40 mg BIDAC PO ; Start 04/19/18 at 16:30 Active Scripts Active Reported Vitamin C (Ascorbic Acid) 500 Mg Capsule 500 Mg PO BID Ferrous Sulfate 325 Mg Tablet 1 Tab PO BID Metformin Hcl 1,000 Mg Tablet 1,000 Mg PO BID Aspir 81 (Aspirin) 81 Mg Tablet.dr 81 Mg PO DAILY Crestor (Rosuvastatin Calcium) 40 Mg Tablet 40 Mg PO HS Lantus (Insulin Glargine,Hum.rec.anlog) 100 Unit/1 Ml Vial 6 Unit SQ HS D3-2000 (Cholecalciferol (Vitamin D3)) 2,000 Unit Capsule 5,000 Unit PO Pioglitazone Hcl 30 Mg Tablet 30 Mg PO DAILY Vitals/I & O Vital Sign - Last 24 Hours 04/18/18 04/19/18 04/19/18 04/19/18 23:20 03:20 07:00 08:00 Temp 97.6 98.0 98.0 97.6 98.0 98.0 Pulse 77 78 89 Resp 16 16 18 B/P (MAP) 125/55 (78) 121/54 (76) 111/52 (71) Pulse Ox 100 98 98 O2 Delivery Room Air Room Air Room Air Room Air 04/19/18 04/19/18 04/19/18 04/19/18 11:00 12:20 12:21 13:13 Temp 98.0 98.8 98.4 98.0 98.8 98.4 Pulse 88 87 78 Resp 18 20 20 B/P (MAP) 131/84 (100) 102/54 Pulse Ox 99 99 O2 Delivery Room Air Room Air Room Air 04/19/18 04/19/18 04/19/18 04/19/18 13:23 13:32 13:33 13:43 Temp 98.8 98.8 98.8 98.8 98.8 98.8 98.8 98.8 Pulse 77 78 79 79 Resp 20 20 20 20 B/P (MAP) 100/55 100/55 112/56 109/78 Pulse Ox 98 98 99 98 O2 Delivery Room Air Room Air Room Air Room Air 04/19/18 04/19/18 14:33 19:00 Temp 97.6 98.1 97.6 98.1 Pulse 82 77 Resp 18 17 B/P (MAP) 136/55 (82) 120/44 (69) Pulse Ox 96 97 O2 Delivery Room Air Room Air Intake and Output 04/18/18 04/18/18 04/19/18 15:00 23:00 07:00 Intake Total 500 ml 0 ml Balance 500 ml 0 ml FITZ KOEHLER MD Apr 19, 2018 21:56
[2018-04-19 22:35] VITALS: BP 120/43
[2018-04-20 03:00] VITALS: BP 108/35
[2018-04-20] MEDS: PANTOPRAZOLE 40 MG TABLET.DR. PO SCH (06:29)
[2018-04-20 07:00] VITALS: BP 110/52
--- NOTE | 2018-04-20 09:15 | NUR ---
SW following. Discussed with RN, pt is from home with and daughter, has a good support system. PT/OT recommending home. RN advised no SW needs and anticipates possible discharge home today.
--- NOTE | 2018-04-20 10:51 | PDOC3 ---
Discharge Summary Visit Information Date of Admission: Apr 18, 2018 Date of Discharge: Apr 20, 2018 Admitting Diagnosis: vomitng, no po intkae Final Diagnosis 1. Severe esophageal stenosis, upper 1/3 - biopsy taken to r./o malignancy, dilation done 2. Weight loss 4 3. Ex smoker, emphysematous lungs 4. Proteinuria hx - 5. DM 2 on 6 units qhs and OHA 6. htn Brief Hospital Course Allergies Allergies Coded Allergies Type Severity Reaction Last Updated Verified erythromycin base Allergy Intermediate 04/19/18 Yes lisinopril Allergy Intermediate 04/19/18 Yes losartan Allergy Intermediate 04/19/18 Yes Vital Signs Vital Signs Date Time Temp Pulse Resp B/P (MAP) Pulse Ox O2 Delivery O2 Flow Rate FiO2 04/20/18 07:00 98.6 82 16 110/52 (71) 97 Room Air 98.6 Lab Results Laboratory Tests Test 04/18/18 12:51 04/18/18 13:13 04/18/18 13:45 04/18/18 14:40 Glucose (Fingerstick) 110 mg/dL (70-99) White Blood Count 6.1 x10^3/uL (4.0-11.0) Red Blood Count 4.55 x10^6/uL (3.50-5.40) Hemoglobin 14.0 g/dL (12.0-15.5) Hematocrit 42.8 % (36.0-47.0) Mean Corpuscular Volume 94 fL (79-100) Mean Corpuscular Hemoglobin 31 pg (25-35) Mean Corpuscular Hemoglobin Concent 33 g/dL (31-37) Red Cell Distribution Width 13.2 % (11.5-14.5) Platelet Count 342 x10^3/uL (140-400) Neutrophils (%) (Auto) 80 % (31-73) Lymphocytes (%) (Auto) 14 % (24-48) Monocytes (%) (Auto) 5 % (0-9) Eosinophils (%) (Auto) 0 % (0-3) Basophils (%) (Auto) 1 % (0-3) Neutrophils # (Auto) 4.9 x10^3uL (1.8-7.7) Lymphocytes # (Auto) 0.8 x10^3/uL (1.0-4.8) Monocytes # (Auto) 0.3 x10^3/uL (0.0-1.1) Eosinophils # (Auto) 0.0 x10^3/uL (0.0-0.7) Basophils # (Auto) 0.0 x10^3/uL (0.0-0.2) Sodium Level 145 mmol/L (136-145) Potassium Level 3.0 mmol/L (3.5-5.1) Chloride Level 105 mmol/L (98-107) Carbon Dioxide Level 25 mmol/L (21-32) Anion Gap 15 (6-14) Blood Urea Nitrogen 17 mg/dL (7-20) Creatinine 0.6 mg/dL (0.6-1.0) Estimated GFR (Cockcroft-Gault) 98.0 BUN/Creatinine Ratio 28 (6-20) Glucose Level 97 mg/dL (70-99) Calcium Level 8.9 mg/dL (8.5-10.1) Total Bilirubin 0.3 mg/dL (0.2-1.0) Aspartate Amino Transf (AST/SGOT) 13 U/L (15-37) Alanine Aminotransferase (ALT/SGPT) 17 U/L (14-59) Alkaline Phosphatase 68 U/L (46-116) Total Protein 6.8 g/dL (6.4-8.2) Albumin 3.5 g/dL (3.4-5.0) Albumin/Globulin Ratio 1.1 (1.0-1.7) Urine Collection Type Void Urine Color Yellow Urine Clarity Clear Urine pH 5.0 Urine Specific [place] 1.025 Urine Protein 100 mg/dL (NEG-TRACE) Urine Glucose (UA) Negative mg/dL (NEG) Urine Ketones (Stick) >=80 mg/dL (NEG) Urine Blood Negative (NEG) Urine Nitrite Negative (NEG) Urine Bilirubin Moderate (NEG) Urine Urobilinogen Dipstick 1.0 mg/dL (0.2 mg/dL) Urine Leukocyte Esterase Moderate (NEG) Urine RBC 0 /HPF (0-2) Urine WBC >40 /HPF (0-4) Urine Squamous Epithelial Cells Many /LPF Urine Bacteria Many /HPF (0-FEW) Urine Hyaline Casts Few /HPF Urine Mucus Marked /LPF Test 04/18/18 22:44 04/19/18 07:10 04/19/18 08:27 04/19/18 09:51 Glucose (Fingerstick) 86 mg/dL (70-99) 59 mg/dL (70-99) 145 mg/dL (70-99) White Blood Count 4.0 x10^3/uL (4.0-11.0) Red Blood Count 3.97 x10^6/uL (3.50-5.40) Hemoglobin 12.5 g/dL (12.0-15.5) Hematocrit 37.6 % (36.0-47.0) Mean Corpuscular Volume 95 fL (79-100) Mean Corpuscular Hemoglobin 32 pg (25-35) Mean Corpuscular Hemoglobin Concent 33 g/dL (31-37) Red Cell Distribution Width 13.5 % (11.5-14.5) Platelet Count 299 x10^3/uL (140-400) Sodium Level 147 mmol/L (136-145) Potassium Level 2.9 mmol/L (3.5-5.1) Chloride Level 106 mmol/L (98-107) Carbon Dioxide Level 24 mmol/L (21-32) Anion Gap 17 (6-14) Blood Urea Nitrogen 14 mg/dL (7-20) Creatinine 0.4 mg/dL (0.6-1.0) Estimated GFR (Cockcroft-Gault) 156.5 Glucose Level 73 mg/dL (70-99) Calcium Level 8.6 mg/dL (8.5-10.1) Test 04/19/18 11:11 04/19/18 14:40 04/19/18 16:08 04/19/18 17:40 Glucose (Fingerstick) 108 mg/dL (70-99) 78 mg/dL (70-99) 133 mg/dL (70-99) Potassium Level 3.5 mmol/L (3.5-5.1) Test 04/19/18 20:48 04/20/18 07:27 Glucose (Fingerstick) 184 mg/dL (70-99) 112 mg/dL (70-99) Laboratory Tests Test 04/19/18 11:11 04/19/18 14:40 04/19/18 16:08 04/19/18 17:40 Glucose (Fingerstick) 108 mg/dL (70-99) 78 mg/dL (70-99) 133 mg/dL (70-99) Potassium Level 3.5 mmol/L (3.5-5.1) Test 04/19/18 20:48 04/20/18 07:27 Glucose (Fingerstick) 184 mg/dL (70-99) 112 mg/dL (70-99) Brief Hospital Course Ms. Maher is a 72 old admit with nausea and vomiting x5 days, no po inake, we found esophageal stricture, to EGD, Dr. Olsen on , then PO intake OK her blood sugars here were fine off her DM2 meds, will stop metformin and actos, cont insulin, add back as needed I asked them to est care with Dr. Hiwot Ty in [place] Discharge Information Condition at Discharge: Improved Follow Up: Weeks Disposition/Orders: D/C to Home Scheduled Ascorbic Acid (Vitamin C) 500 Mg Capsule, 500 MG PO BID for supplement, ( Reported) Entered as Reported by: WIL MILLER on 04/18/181905 Last Taken: Unknown Dose on 04/17/18 Last Action: New Order on 04/18/181905 by WIL MILLER Aspirin (Aspir 81) 81 Mg Tablet.dr, 81 MG PO DAILY, (Reported) Entered as Reported by: MARIA L WRAY on 08/15/13715 Last Taken: Unknown Dose on 04/17/18 Last Action: Last Taken Edited on 12/27 by WIL MILLER Ferrous Sulfate (Ferrous Sulfate) 325 Mg Tablet, 1 TAB PO BID for supplement, # 60 Ref 3 (Reported) Entered as Reported by: WIL MILLER on 04/18/181905 Last Action: New Order on 04/18/181905 by WIL MILLER Insulin Glargine,Hum.rec.anlog (Lantus) 100 Unit/1 Ml Vial, 6 UNIT SQ HS for high blood sugar, (Reported) Entered as Reported by: MARIA L WRAY on 08/15/13715 Last Action: Edited on 04/18/181906 by WIL MILLER Metformin Hcl (Metformin Hcl) 1,000 Mg Tablet, 1,000 MG PO BID for ANTI-DIABETIC , Ref 0 (Reported) Entered as Reported by: MARIA L WRAY on 08/15/13715 Last Taken: Unknown Dose on 04/17/18 Last Action: Last Taken Edited on 12/27 by WIL MILLER Pioglitazone Hcl (Pioglitazone Hcl) 30 Mg Tablet, 30 MG PO DAILY, (Reported) Entered as Reported by: MARIA L WRAY on 08/15/13715 Last Taken: Unknown Dose on 04/17/18 Last Action: Last Taken Edited on 12/27 by WIL MILLER Rosuvastatin Calcium (Crestor) 40 Mg Tablet, 40 MG PO HS for FOR CHOLESTEROL, # 30 Ref 0 (Reported) Entered as Reported by: MARIA L WRAY on 08/15/13715 Last Taken: Unknown Dose on 04/17/18 Last Action: Last Taken Edited on 12/27 by WIL MILLER Miscellaneous Medications Cholecalciferol (Vitamin D3) (D3-2000) 2,000 Unit Capsule, 5,000 UNIT PO, ( Reported) Entered as Reported by: MARIA L WRAY on 08/15/13715 Last Taken: Unknown Dose on 04/17/18 Last Action: Last Taken Edited on 12/27 by WIL MILLER Discontinued Medications Lisinopril (Lisinopril) 5 Mg Tablet, 5 MG PO DAILY for FOR HYPERTENSION, #30 Ref 0 (Reported) Entered as Reported by: MARIA L WRAY on 08/15/13715 Last Action: Discontinued on 04/18/181905 by WIL MILLER Patient Instructions Patient Instructions > 30 min face to face HERBERT MONGE MD Apr 20, 2018 10:51
--- NOTE | 2018-04-20 10:53 | PDOC ---
Subjective: Subjective: Feels better, swallowing better. Has questions about metformin. Objective: Vital Signs: Vital Signs Date Time Temp Pulse Resp B/P (MAP) Pulse Ox O2 Delivery O2 Flow Rate FiO2 04/20/18 07:00 98.6 82 16 110/52 (71) 97 Room Air 98.6 Labs: Laboratory Tests Test 04/19/18 11:11 04/19/18 14:40 04/19/18 16:08 04/19/18 17:40 Glucose (Fingerstick) 108 mg/dL 78 mg/dL 133 mg/dL Potassium Level 3.5 mmol/L Test 04/19/18 20:48 04/20/18 07:27 Glucose (Fingerstick) 184 mg/dL 112 mg/dL URINE CULTURE Final Final report URINE CULTURE RES 1 Final Comment Culture shows less than 10,000 colony forming units of bacteria per milliliter of urine. Imaging: EGD 04/19/18 Findings; food bolus in mid thoracic esophagus- removed by piecemeal pushing into stomach- use ramirez dilators 34, 40 and 44 to move food into stomach and dilate the esophageal stricture esophagitis at site and just distal benign stricture Stomach- normal PE: GEN: NAD LUNGS: CTAB HEART: RRR ABD: NABS, S/ND/NT NEURO/PSYCH: A & O 3 A/P: Food bolus, esophageal stricture - s/p esophageal dilation to 44Fr -- Okay to DC per GI on PPI - our office will contact to follow-up for repeat dilation in 3-4 weeks. CANDICE ZURITA Apr 20, 2018 10:53
[2018-04-20 11:00] VITALS: BP 137/55
--- NOTE | 2018-04-20 13:47 | NUR ---
Discharge Note: ANITA JENNINGS5 [facility] Discharge instructions and discharge home medications reviewed with Patient and a copy given. All questions have been answered and understanding verbalized. The following instructions and handouts were given: Discharge Instructions, Diabetes Management, Esophageal Strictures Discontinued lines and drains: Peripheral IV in Left Forearm, Catheter intact. Patient discharged to Home with Self-Care via Spouse's Vehicle.
== END 2018-04-20 13:00 | disposition home or self-care (01) | DRG 392 ==
LOC: ER 12:22 → 5 SOUTH 15:40
PROVIDERS: ADMIT Internal Medicine; ATTEND Internal Medicine
PROC: 0D728ZZ Dilation of Middle Esophagus, Via Natural or Artificial Opening Endoscopic (ICD-10-PCS; principal; 2018-04-19 13:30)
DX: K22.2 Esophageal obstruction (principal); R64 Cachexia; Z68.1 Body mass index [BMI] 19.9 or less, adult; E11.9 Type 2 diabetes mellitus without complications; E87.6 Hypokalemia; D64.9 Anemia, unspecified; J43.9 Emphysema, unspecified; I11.9 Hypertensive heart disease without heart failure; R80.9 Proteinuria, unspecified; K44.9 Diaphragmatic hernia without obstruction or gangrene; Z79.4 Long term (current) use of insulin; Z87.891 Personal history of nicotine dependence; Z88.8 Allergy status to other drugs, medicaments and biological substances; K20.9 Esophagitis, unspecified
CPT/HCPCS: 36415; 43247; 43450; 71046; 74220; 80048; 80053; 81001; 82962; 84132; 85025; 85027; 87086; 96361; 96374; C9113; J2704; J3480; J3490; J7030; J7042; 99285-25

== ENCOUNTER → 2018-07-28 | Outpatient (CLI) | payer MEDICARE ==
[~2018-07-28] MED LIST changes: +ASCO500C9 PO; +FERR325T14 PO
--- NOTE | 2018-07-28 15:34 | RAD ---
FDG tumor localization scan, PET/CT, 07/28/2018: HISTORY: Lung mass Following IV injection of 16.5 mCi of 18 F-FDG, imaging was performed from the skull base to the proximal thighs. The noncontrast CT component was performed for attenuation correction and anatomic localization purposes rather than for primary diagnosis. The patient's blood glucose level at the time of injection was 163 MG/DL. There is soft tissue thickening in the lateral aspect of the left pulmonary apex which is hypermetabolic. It demonstrates a maximum SUV of 6.3. A 2 cm spiculated nodule in the anteromedial aspect of the left upper lobe is also hypermetabolic. It is contiguous with hypermetabolic tissue within the mediastinum. The hypermetabolic mediastinal tissue involves both the right and left aspects of the upper mediastinum extending into the subcarinal region. The maximum SUV is 11. The appearance suggests confluent adenopathy. There is a focus of increased activity at the proximal right subclavian level probably representing a metastatic node which cannot be clearly from the vessels on the CT component. A small peripheral 1 cm spiculated density abutting the pleura in the posterolateral aspect of the right upper lobe demonstrates low level FDG uptake with a maximum SUV of 2.1. There is a similar small nodule in the posteromedial aspect of the left upper lobe demonstrating low level FDG uptake of 2.6. Physiologic activity is present in the neck. No hypermetabolic neck lesion is seen. Normal GI tract and urinary tract activity is present in the abdomen and pelvis. No hypermetabolic abdominal or pelvic lesion is delineated. IMPRESSION: 1. Hypermetabolic left apical pleural thickening suggestive malignancy. 2. Hypermetabolic nodule in the medial aspect of left upper lobe suggesting lung malignancy with adjacent extensive hypermetabolic mediastinal tissue likely representing metastatic adenopathy. 3. Separate small left upper lobe and right upper lobe peripheral nodules demonstrate low level FDG uptake and may be inflammatory or neoplastic. 4. Right medial subclavian region hypermetabolic abnormality likely on a metastatic basis. PQRS Compliance Statement: One or more of the following individualized dose reduction techniques were utilized for this examination: 1. Automated exposure control 2. Adjustment of the mA and/or kV according to patient size 3. Use of iterative reconstruction technique MTDD
== END | disposition home or self-care (01) ==
LOC: PETSC 11:51
PROVIDERS: ATTEND Internal Medicine Pulmonary Disease
DX: R91.8 Other nonspecific abnormal finding of lung field (principal)
CPT/HCPCS: 78815; A9552

== ENCOUNTER 2018-08-25 08:30 | Outpatient (CLI) | payer MEDICARE ==
[2018-08-25] VITALS (9 sets, daily range): BP systolic 137–170; BP diastolic 51–77
[~2018-08-25] VITALS: Ht 152.4 cm; Wt 34.9 kg
[2018-08-25] MEDS ORDERED: HYDR15SO6 PO (08:58)
[2018-08-25] MEDS ORDERED: PANT20TA2 PO (08:58)
[2018-08-25] MEDS ORDERED: INSU100V13 SQ (08:58)
[2018-08-25 09:03] LABS: BASO % 1 % (0-3); EOS % 1 % (0-3); HEMATOCRIT 41.5 % (36.0-47.0); LYMPH # 0.8 x10^3/uL (1.0-4.8); LYMPH % 18 % (24-48); MEAN CORPUSCULAR HEMOGLOBIN 30 pg (25-35); MEAN CORPUSCULAR HGB CONC 34 g/dL (31-37); MEAN CORPUSCULAR VOLUME 89 fL (79-100); MONO # 0.3 x10^3/uL (0.0-1.1); MONO % 7 % (0-9); NEUT # 3.4 x10^3/uL (1.8-7.7); NEUT % 73 % (31-73); PLATELET COUNT 391 x10^3/uL (140-400); RED BLOOD COUNT 4.65 x10^6/uL (3.50-5.40); WHITE BLOOD COUNT 4.6 x10^3/uL (4.0-11.0)
[2018-08-25] MEDS ORDERED: LIDOCAINE WITH 8.4% SOD BICARB 3 ML DISP.SYRIN. ONE ×3 (09:25→10:07)
[2018-08-25 09:27] LABS: PROTHROMBIN TIME PATIENT 13.6 SEC (11.7-14.0)
[2018-08-25] MEDS ORDERED: LIDOCAINE WITH 8.4% SOD BICARB 3 ML DISP.SYRIN. IJ ONE (10:00)
--- NOTE | 2018-08-25 12:02 | NUR ---
Discharge Note: ANITA JENNINGS Discharge instructions and discharge home medications reviewed with Spouse and a copy given. All questions have been answered and understanding verbalized. The following instructions and handouts were given: Needle biopsy aspiration. Discontinued lines and drains: NO IV access for this visit. Patient discharged to home with via private vehicle.
--- NOTE | 2018-08-26 12:06 | PATHOLOGY ---
[facility] Accession Number: [id number] . 01 Material submitted: . clavicle - CORE BIOPSY FRAGMENT RIGHT SUPRACLAVICULAR MASS. Modifiers: right . 01 Clinical history: . Right supraclavicular mass Left lung mass- PET positive, mediastinal adenopathy . 02 Diagnosis: Right supraclavicular mass, core biopsies: - Small segments of fibrovascular tissue and blood clot identified. (JPM:[facility] 08/26/2018) P/08/26/2018 . 02 Comment: There is no evidence of malignancy. Please correlate with fine needle aspiration cytology specimen. (J[facility] 08/26/2018) . 02 Electronically signed: . Jayme Sandoval MD, Pathologist NPI- [id number] . 01 Gross description: . The specimen is received in formalin, labeled "Baldo Maherugia, right supraclavicular mass" and consists of a few minute fragments of pink tissue measuring 0.5 x 0.1 x 0.1 cm in aggregate. They are entirely submitted in A1. (SDY; 08/25/2018) SYU/SYU . 02 Pathologist provided ICD-10: R22.9 . 02 CPT . 609599 Specimen Comment: A courtesy copy of this report has been sent to Specimen Comment: [phone], , . Specimen Comment: Report sent to ,DR BUSTOS / DR QUIGLEY Performed at: 01 [facility] [place] [address], [place], [place] [id number] MD Rosales Carnes MD Phone: [phone] Performed at: 02 [facility] [address] [place], [place] [id number] MD Jayme Sandoval MD Phone: [phone]
--- NOTE | 2018-09-01 08:07 | PATHOLOGY ---
Note [facility] Accession Number: [id number] TESTS RESULT FLAG UNITS REF RANGE LAB Clinician Provided Cytology Information No. of containers..01 Other (Miscellaneous) Source: [A] 01 FNA SUPRACALV MASS DIAGNOSIS: [A] 02 FNA SUPRACALV MASS POSITIVE FOR MALIGNANT CELLS. MANY LARGE EPITHELIOD MALIGNANT CELLS IDENTIFIED, SOME OF WHICH HAVE CYTOPLASMIC GRANULAR PIGMENT. DIFFERENTIAL DIAGNOSIS INCLUDES METASTATIC NON-SMALL CELL CARCINOMA AND MELANOMA. THERE ARE INSUFFICIENT CELLS IN CELL BLOCK FOR IMMUNOSTAINS. RECOMMEND BIOPSY IF CLINICALLY INDICATED. CASE IS ALSO EXAMINED BY DR. LANE, CYTOPATHOLOGIST, WHO CONCURS WITH THE DIAGNOSIS. Signed out by: Jayme Sandoval MD, Pathologist NPI- [id number] Performed by: Chelle Duque, Game Farm Supervisor ([facility]) Gross description: 01 20ML, PALE PINK, CLOUDY /LCS FLAG LEGEND: L-Low Normal,H-High Normal,LL-Alert Low,HH-Alert High <-Panic Low,>-Panic High,A-Abnormal,AA-Critical Abnormal Performed at: [facility] [address] [place] [address] Rosales Carnes MD, [address] [facility] [address] [place] [address] Jayme Sandoval MD, Performed at: [address], [place], [place] [id number] MD Rosales Carnes MD Phone: [phone]
--- NOTE | 2018-09-02 10:24 | RAD ---
August 25, 2018 Procedure: Ultrasound guided core needle biopsy and manual aspiration of right supraclavicular lymph node Indication: Lung nodule, with pleural thickening, mediastinal adenopathy, and right supraclavicular clavicular adenopathy, all of which are PET avid Consent: The procedure was explained in its entirety to the patient or the patients designated treasury representative by a member of the treatment team, including a discussion of the risks, benefits and commonly accepted alternatives to the procedure, as well as the expected consequences of no therapy whatsoever. Discussion of the risks included, but was not limited to, those that are most frequent and those that are rare but possibly severe or life-threatening, as well as the possibility of unforeseen complications. All elements of maximal sterile barrier technique including the use of a cap, mask, sterile gown, sterile gloves, large sterile sheet, appropriate hand hygiene, and 2% chlorhexidine for cutaneous antisepsis (or acceptable alternative antiseptic per current guidelines) were followed for this procedure. Right supra clavicular region was scanned with ultrasound. A 1.2 x 0.7 mm abnormal lymph node is seen in the right supraclavicular region. This was targeted for biopsy. 1% lidocaine was administered for local anesthesia. Core biopsy sample was obtained, but felt to be adequate. Core biopsy sampling was difficult due to morphology and surrounding structures. Fine-needle aspiration was performed using 25-gauge needles and a Rotex needle. Samples were delivered to pathology was present during the exam. Manual pressure was held. Sterile dressings were applied. Impression: Fine-needle aspiration and minimal core biopsy of right supraclavicular lymph node
== END 2018-08-25 12:00 | disposition home or self-care (01) ==
LOC: INTRAD 08:30
PROVIDERS: ATTEND Internal Medicine Pulmonary Disease
DX: C96.9 Malignant neoplasm of lymphoid, hematopoietic and related tissue, unspecified (principal)
CPT/HCPCS: 10005; 36415; 38505; 76942; 85025; 85610; 88173; 88305

== ENCOUNTER → 2018-09-09 | Day surgery (SDC) | payer MEDICARE ==
[~2018-09-09] MED LIST changes: +HYDR15SO6 PO; +HYDROmorphone 2 MG/ML VIAL IV PRN; +INSU100V13 SQ; +IOHEXOL 300 MG/ML 100ML VIAL. ONE; +IV RINGERS,LACTATED 1000ML 1,000 ML IV SCH; +MORPHINE SULFATE 2 MG/ML VIAL. IV PRN; +ONDANSETRON PF 4 MG/2 ML VIAL. IV PRN; +PANT20TA2 PO; +PROCHLORPERAZINE 10 MG/2 ML VIAL. IV PRN; +PROPOFOL 20 ML IV ONE; +fentaNYL PF VIAL 100 MCG/2 ML VIAL IV PRN
--- NOTE | 2018-09-09 15:37 | PDOC1 ---
History and Physical Date of Admission Date of Admission DATE: 09/09/18 TIME: 15:32 History of Present Illness History of Present Illness 73 you female with recurrent esophageal stricture and dysphagia and weight loss- mid esophageal site and CT with bx show lung cancer and adenopathy as cause. Here today for esophageal stent placement Past Medical History Renal/: Other Endocrine: Diabetes Past Surgical History Past Surgical History: No pertinent history Family History Family History: No Significant Social History ALCOHOL: none Drugs: None Current Medications Current Medications Current Medications Ondansetron HCl (Zofran) 4 mg PRN Q6HRS PRN IV NAUSEA/VOMITING; Start 09/09/18 at 07:00; Stop 09/09/18 at 20:00 Fentanyl Citrate (Fentanyl 2ml Vial) 25 mcg PRN Q5MIN PRN IV MILD PAIN 1-3; Start 09/09/18 at 07:00; Stop 09/09/18 at 20:00 Fentanyl Citrate (Fentanyl 2ml Vial) 50 mcg PRN Q5MIN PRN IV MODERATE TO SEVERE PAIN; Start 09/09/18 at 07:00; Stop 09/09/18 at 20:00 Morphine Sulfate (Morphine Sulfate) 1 mg PRN Q10MIN PRN IV SEVERE PAIN 7-10; Start 09/09/18 at 07:00; Stop 09/09/18 at 20:00 Ringer's Solution 1,000 ml @ 30 mls/hr Q24H IV Last administered on 09/09/18at 14:43; Start 09/09/18 at 07:00; Stop 09/09/18 at 18:59 Hydromorphone HCl (Dilaudid) 0.5 mg PRN Q10MIN PRN IV SEV PAIN, Second choice; Start 09/09/18 at 07:00; Stop 09/09/18 at 20:00 Prochlorperazine Edisylate (Compazine) 5 mg PACU PRN PRN IV NAUSEA, MRX1; Start 09/09/18 at 07:00; Stop 09/09/18 at 20:00 Iohexol (Omnipaque 300 Mg/ml) 100 ml STK-MED ONCE .ROUTE ; Start 09/09/18 at 12:05; Stop 09/09/18 at 12:06; Status DC Propofol 40 ml @ As Directed STK-MED ONCE IV ; Start 8/2/19 at 15:21; Stop 09/09/18 at 15:22; Status DC Active Scripts Active Reported Levemir (Insulin Detemir) 100 Unit/1 Ml Vial 5 Unit SQ HS Allergies Allergies: Coded Allergies: erythromycin base (Verified Allergy, Intermediate, 09/09/18) lisinopril (Verified Allergy, Intermediate, 09/09/18) losartan (Verified Allergy, Intermediate, 09/09/18) clarithromycin (Verified Allergy, Unknown, 09/09/18) Physical Exam General: Alert, Oriented X3, Other (thin and weak) Heart: RRR Cardiovascular: S1, S2 Abdomen: Normal bowel sounds, Soft Psych/Mental Status: Mental status NL Vitals Vitals Vital Signs Date Time Temp Pulse Resp B/P (MAP) Pulse Ox O2 Delivery O2 Flow Rate FiO2 09/09/18 14:29 98.3 80 16 97 98.3 VTE Prophylaxis Ordered VTE Prophylaxis Devices: No VTE Pharmacological Prophylaxi: Yes Assessment/Plan Assessment/Plan Esophageal stricture with lung cancer Plan- EGD with esophageal stent placement KASSI TORRES MD Sep 09, 2018 15:37
[2018-09-09 16:36] VITALS: BP 160/77
--- NOTE | 2018-09-10 10:27 | PDOC4 ---
PROCEDURE Procedure September 09, 2018 EGD with dilation and esophageal stent dysphagia, esophageal stricture- lung cancer Anesthesia- propofol Findings- mid esophageal stricture with some deformity/ extrinsic with ulcera tion at 20 cm- could not pass EGD scope until dilated with 36 and 42 fr ramirez- then scope passed into stomach. Guide wire passed and under fluro, Wall flex 18 mm stent (12 cm long) was passed and deployed across the stricture- proximal extent of stent positioned 2 cm below UES- peds scope passed to confirm good position and successful opening of esophageal stricture Plan- liquid and soft diet- information given on diet after stent to family proceed with referral to [facility] oncology KASSI TORRES MD Sep 10, 2018 10:27
== END ==
LOC: SURG 13:55
PROVIDERS: ATTEND Internal Medicine Gastroenterology
DX: K22.2 Esophageal obstruction (principal); E11.9 Type 2 diabetes mellitus without complications
CPT/HCPCS: 43450; 76000; 82962; C1769; J2405; J2704; Q9967

== ENCOUNTER → 2018-09-15 | Outpatient (CLI) | payer MEDICARE ==
[2018-09-09 16:36] VITALS: BP 160/77
[~2018-09-15] MED LIST changes: +BARIUM SULFATE 340 GM SUSPENSION. PO ONE; +BARIUM SULFATE 60% 355 ML SUSP PO ONE; +BARIUM SULFATE 700 MG TABLET PO ONE; -HYDROmorphone 2 MG/ML VIAL IV PRN; -IOHEXOL 300 MG/ML 100ML VIAL. ONE; -IV RINGERS,LACTATED 1000ML 1,000 ML IV SCH; -MORPHINE SULFATE 2 MG/ML VIAL. IV PRN; -ONDANSETRON PF 4 MG/2 ML VIAL. IV PRN; -PROCHLORPERAZINE 10 MG/2 ML VIAL. IV PRN; -PROPOFOL 20 ML IV ONE; +SIMETHICONE/SOD BICARB/CITRIC ACID PACKET. PO ONE; -fentaNYL PF VIAL 100 MCG/2 ML VIAL IV PRN
--- NOTE | 2018-09-15 12:41 | RAD ---
Examination: ESOPHAGRAM/BARIUM SWALLOW History: Epigastric pain, esophageal stricture with stent placement, lung cancer Comparison/Correlation: 04/18/2018 esophagram Findings: Fluoroscopy was utilized for 1.7 minutes. 14 images acquired. Only 10 Limited barium was utilized for this exam. Esophageal stent is noted from the upper thoracic esophagus to the distal thoracic esophageal level. The patient could only swallow small quantities of contrast orally for this exam. Mild esophageal hypomotility suggested. There is no stricture identified. Contrast flows freely through the esophageal stent. No extravasation identified on images acquired. Small amount of contrast is noted anterior to the superior aspect of the esophageal stent but this clears subsequently. No suspicious filling defect delineated although evaluation is limited. Prone Valsalva drinking views were not attempted due to the patient's inability to swallow adequate volumes of contrast. No hiatal hernia identified with the patient upright. Impression: Esophageal stent is identified. No extravasation or stricture. Electronically signed by: Edson Asher MD (09/15/2018 12:39 PM) [facility]
== END | disposition home or self-care (01) ==
LOC: RAD 10:26
PROVIDERS: ATTEND Internal Medicine Gastroenterology
DX: R10.13 Epigastric pain (principal); Z96.89 Presence of other specified functional implants; Z85.118 Personal history of other malignant neoplasm of bronchus and lung
CPT/HCPCS: 74220

== ENCOUNTER → 2018-09-23 | Outpatient (CLI) | payer MEDICARE ==
[2018-09-09 16:36] VITALS: BP 160/77
[~2018-09-23] MED LIST changes: -BARIUM SULFATE 340 GM SUSPENSION. PO ONE; -BARIUM SULFATE 60% 355 ML SUSP PO ONE; -BARIUM SULFATE 700 MG TABLET PO ONE; -SIMETHICONE/SOD BICARB/CITRIC ACID PACKET. PO ONE
--- NOTE | 2018-09-23 22:58 | CONS ---
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 She underwent initial upper endoscopy in 04/2018 followed by esophageal stent placement on 09/09/2018 with no significant improvement in her swallowing difficulty. We were asked to see her now regarding palliative radiation therapy in her care. ICD 10 C34.12 C77.0 C77.1 HISTORY OF PRESENT ILLNESS: The patient is a 73-year-old woman who beginning in 01/2018 developed hoarseness. Following this, in 03/2018, she developed difficulty swallowing, where things came up sometimes with food and sometimes with just from the water. During this time, she lost weight from a baseline weight of 87-89 pounds, now down to 69.8 pounds. Initial evaluation included an esophagram on 04/18/2018, which revealed severe upper thoracic esophageal stricture, neoplastic or inflammatory in nature. She underwent upper endoscopy on 04/19/2018. This revealed food in the upper third of the esophagus, which was removed. There was ingestion injury due to esophagitis. Benign esophageal stenosis was seen, which was dilated. Following this, she had minimal improvement. She underwent CT scan of the chest on 06/20/2018. This revealed 2 cm soft tissue mass in the medial aspect of the left upper lobe indeterminate in nature. Noncalcified pulmonary nodules in the left upper lobe and right upper lobe, right middle lobe, and mild mediastinal adenopathy. PET CT scan on 07/28/2018 revealed hypermetabolic left apical pleural thickening suggestive for malignancy, hypermetabolic nodule in the medial aspect of the left upper lobe suggesting lung malignancy and adjacent extensive hypermetabolic mediastinal adenopathy, small left upper and right upper lobe peripheral nodules, indeterminate and distinct right supraclavicular hypermetabolic uptake consistent with adenopathy. Right supraclavicular lymph node aspiration biopsy on 08/25/2018 revealed a core biopsy, which was nondiagnostic. Aspiration revealed positive for malignant cells. Differential diagnosis of metastatic non-small cell carcinoma and melanoma, insufficient cells for immunostains, additional tissue was recommended. She is now scheduled to consider excisional biopsy of the right supraclavicular lymph node. She underwent esophageal stent placement on 09/09/2018, which occurred without complications. Followup esophagram on 09/15/2018, revealed stent with no extravasation or stricture noted. She notes ongoing central chest pain after eating. Previous trial of Protonix did not help. She continues to have difficulty with swallowing. She has ongoing decreased energy level. notes that she takes increasing naps. She is self-caring and mobile in the home. When she is energetic, she does knit and ruben. She has no other pain elsewhere. No nausea or vomiting. No headaches. The sticking of food in her central chest following stent placement did modestly improve. PAST MEDICAL HISTORY: Remarkable for diabetes mellitus, esophageal stricture as noted. ALLERGIES: ERYTHROMYCIN CAUSES RASH. MEDICATIONS: Hydrocodone/acetaminophen solution, detemir insulin. She carefully monitors her blood sugar. FAMILY HISTORY: Sister had cervical carcinoma many years ago, from this at age 43. SOCIAL HISTORY: to her Roderick for 38 years, 5 children, 3 daughters, 2 sons, 4 live here, 1 in [place]. 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 The patient smoked a pack a day for 50 years, quit 1 year ago. Denies significant alcohol use. She had many jobs during her career outside of caring for the family. PHYSICAL EXAMINATION: GENERAL: Revealed a pleasant woman in no acute distress. VITAL SIGNS: Weight 69.8 pounds, blood pressure 138/70, and pulse oximetry on room air 93%. HEENT: Revealed poor dentition with gingival recessions and gum disease in general. She was hoarse with unintelligible voice. LYMPH NODES: She had a 1 cm discrete right supraclavicular lymph node, minimally mobile, nontender. LUNGS: Clear to auscultation. HEART: Regular, without murmur or gallop. ABDOMEN: Unremarkable. EXTREMITIES: Reveal no clubbing, cyanosis or edema. LABORATORY STUDIES: Currently available from 08/19/2018, hemoglobin 14.0, white count 4600, platelet count 391,000. Chemistry panel: Glucose 143, normal creatinine 0.5. Normal liver function tests, calcium 9.2. ASSESSMENT AND PLAN: In summary, my impression is that of stage IV non-small cell carcinoma of the lung with significant mediastinal disease causing esophageal extrinsic compression and stricture. She has had stent placement, which is functional on an esophagram, but has not resulted in significant improvement in her symptoms. At this time, palliative radiation therapy to her mediastinum to improve her esophageal function is rational. Alternatively, she could have PEG tube placement now and consider radiation later. She understood these choices and has elected to proceed with radiation first followed by observation of her symptomatic change and address PEG tube placement at a later date. She will also undergo supraclavicular open or excisional biopsy to assist in obtaining improved tissue sample for receptor analysis. I discussed the palliative nature of radiation, its goals and toxicities in detail with the patient and her family and she elected to proceed. Thank you for allowing us to participate in her evaluation. SAMANTA MORILLO MD DR: ROBERT/karolina JOB#: [id number] / [id number] NOELLE Castro GEORGE MD MTDD
== END ==
LOC: ONC 22:58
PROVIDERS: ATTEND Radiology Radiation Oncology
DX: Z08 Encounter for follow-up examination after completed treatment for malignant neoplasm (principal); C34.12 Malignant neoplasm of upper lobe, left bronchus or lung; C77.0 Secondary and unspecified malignant neoplasm of lymph nodes of head, face and neck; C77.1 Secondary and unspecified malignant neoplasm of intrathoracic lymph nodes; E11.9 Type 2 diabetes mellitus without complications
CPT/HCPCS: G0463

== ENCOUNTER → 2018-09-28 | Outpatient (CLI) | payer MEDICARE ==
[2018-09-09 16:36] VITALS: BP 160/77
[~2018-09-28] MED LIST changes: +CONTRAST GIVEN. MC PRN; +IOHEXOL 240 MG/ML 50ML VIAL. PO ONE; +IOHEXOL 300 MG/ML 100ML VIAL. IV ONE
--- NOTE | 2018-09-28 10:26 | RAD ---
PQRS Compliance statement: One or more of the following individualized dose reduction techniques were utilized for this examination: 1. Automated exposure control. 2. Adjustment of the mA and/or kV according to patient size. 3. Use of iterative reconstruction technique. Indication:Left upper lobe lung cancer. Weakness. TECHNIQUE: CT head without and with IV contrast with reformats. COMPARISON:None FINDINGS: No pathologic extra-axial or intra-axial fluid collection. The ventricles and basal cisterns are within normal limits. No acute intracranial bleed. No focal loss of coronado-white differentiation. No enhancing brain lesion. No suspicious calvarial lesion. Visualized paranasal sinuses and mastoid air cells are clear. IMPRESSION: No acute intracranial process. No enhancing brain lesion. If concern for brain metastasis remains high consider further evaluation with MRI with IV contrast. Electronically signed by: Cristino Mederos DO (09/28/2018 10:23 AM) [facility]
--- NOTE | 2018-09-28 10:44 | RAD ---
PQRS Compliance statement: One or more of the following individualized dose reduction techniques were utilized for this examination: 1. Automated exposure control. 2. Adjustment of the mA and/or kV according to patient size. 3. Use of iterative reconstruction technique. Indication:Lung cancer. Initial staging. TECHNIQUE: CT chest, abdomen and pelviswith IV contrast with multiplanar reformats. COMPARISON: PET CT from 07/28/2018. FINDINGS: Heart is normal in size. Trace pericardial effusion. Trace right pleural effusion. Moderate atherosclerotic plaque is seen in the thoracic aorta. No enlarged axillary adenopathy. Spiculated mass is seen in the left upper lobe measuring 1.8 x 1.4 cm abutting mediastinal margin. There is soft tissue density in the mediastinum. Enlarged superior mediastinum lymph node measuring 1.9 x 1.3 cm. No enlarged hilar lymphadenopathy. Esophageal stent is seen which is patent. Oral contrast is seen opacifying the esophagus. Central airways are patent. Biapical pleural scarring is seen. Subpleural nodular opacity in the right upper lobe measuring 9 mm (series 2 image 11). Reticular nodular opacities seen in the posterior segment of the right upper lobe and in the right middle lobe. No suspicious bony lesions in the chest. Liver, spleen, gallbladder, pancreas, adrenals and kidneys are within normal limits. Severe atherosclerotic plaque is seen in the abdominal aorta and bilateral iliac arteries. No free pelvic fluid or ascites. No bowel obstruction. Uterus is present. Urinary bladder demonstrates no radiopaque stone. No suspicious bony lesion. IMPRESSION: 1. Left upper lobe mass with mediastinal adenopathy compatible with provided history of lung cancer with metastatic mediastinal adenopathy. 2. Nonspecific small subpleural opacity in the right upper lobe. Attention on follow-up. 3. Significant atherosclerotic disease of the abdominal aorta and bilateral iliac arteries. Electronically signed by: Cristino Mederos DO (09/28/2018 10:41 AM) [facility]
== END | disposition home or self-care (01) ==
LOC: CT 08:32
PROVIDERS: ATTEND Internal Medicine Hematology & Oncology
DX: C34.12 Malignant neoplasm of upper lobe, left bronchus or lung (principal); I70.0 Atherosclerosis of aorta; I70.8 Atherosclerosis of other arteries; J98.4 Other disorders of lung; R59.0 Localized enlarged lymph nodes; R91.8 Other nonspecific abnormal finding of lung field; I10 Essential (primary) hypertension; E11.9 Type 2 diabetes mellitus without complications; J43.9 Emphysema, unspecified; Z87.891 Personal history of nicotine dependence
CPT/HCPCS: 70470; 71260; 74177; Q9966; Q9967

== ENCOUNTER 2018-11-11 11:01 | Inpatient (IN) | payer MEDICARE ==
[~2018-11-11] VITALS: Ht 152.4 cm; Wt 31.0 kg
[~2018-11-11 11:01] MED LIST changes: -CONTRAST GIVEN. MC PRN; +FENT1PAT13 TP; -IOHEXOL 240 MG/ML 50ML VIAL. PO ONE; -IOHEXOL 300 MG/ML 100ML VIAL. IV ONE; +LEVO500T59 PO
[2018-11-11] MEDS ORDERED: IV NORMAL SALINE 1000ML BAG 1,000 ML IV ONE (11:30)
--- NOTE | 2018-11-11 11:39 | PHYS DOC ---
Past Medical History Past Medical History: Diabetes-Type II Past Surgical History: Other Additional Past Surgical Histo: right wrist Alcohol Use: None Drug Use: None Adult General Chief Complaint Chief Complaint: OTHER COMPLAINTS HPI HPI Patient is a 73 year old female that was seen at [facility] last night. The patient has been having difficulty with eating and drinking for last several months and has been getting worse. Patient described a sensation of feeling any food or water that she takes is getting stuck. She states that she feels a gas bubble formed with chest burp and it makes it feel like she is hard to breathe. The patient has been trying to eat and is having difficulty getting it down. Patient is a lung cancer patient has had 10 treatments of radiation with her last treatment being on October 12. The patient's caregiver states that she has an esophageal stent and states it's ballooning and he believes food is not passing through. He states that the patient has been losing weight and is down to 65 pounds. Denies any pain or any other symptoms. Review of Systems Review of Systems Constitutional: Denies fever or chills [] Eyes: Denies change in visual acuity, redness, or eye pain [] HENT: Denies nasal congestion or sore throat [] Respiratory: Denies cough or shortness of breath [] Cardiovascular: No additional information not addressed in HPI [] GI: Reports difficulty swallowing. Denies abdominal pain, nausea, vomiting, bloody stools or diarrhea [] : Denies dysuria or hematuria [] Musculoskeletal: Denies back pain or joint pain [] Integument: Denies rash or skin lesions [] Neurologic: Denies headache, focal weakness or sensory changes [] Endocrine: Denies polyuria or polydipsia [] Complete systems were reviewed and found to be within normal limits, except as documented in this note. Current Medications Current Medications Current Medications Medications (Trade) Dose Ordered Sig/Ross Start Time Stop Time Status Last Admin Dose Admin Sodium Chloride 1,000 ml @ 1,000 mls/hr 1X ONCE 11/11/18 11:30 11/11/18 12:29 DC 11/11/18 12:23 1,000 MLS/HR Allergies Allergies Allergies Coded Allergies Type Severity Reaction Last Updated Verified clarithromycin Allergy Intermediate 10/26/18 Yes denosumab Allergy Intermediate 10/26/18 Yes erythromycin base Allergy Intermediate 09/09/18 Yes lisinopril Allergy Intermediate 09/09/18 Yes losartan Allergy Intermediate 09/09/18 Yes sitagliptin Allergy Intermediate 10/26/18 Yes Sulfa (Sulfonamide Antibiotics) Allergy Mild 10/26/18 Yes azithromycin Allergy Unknown 11/11/18 Yes methocarbamol Allergy Unknown 11/11/18 Yes Physical Exam Physical Exam Constitutional: Well developed, well nourished, no acute distress, non-toxic appearance. [] HENT: Normocephalic, atraumatic, bilateral external ears normal, oropharynx moist, no oral exudates, nose normal. [] Eyes: PERRLA, EOMI, conjunctiva normal, no discharge. [] Neck: Normal range of motion, no tenderness, supple, no stridor. [] Cardiovascular:Heart rate regular rhythm, no murmur [] Lungs & Thorax: Bilateral breath sounds has mild rhonchi diffusely. Abdomen: Bowel sounds normal, soft, no tenderness, no masses, no pulsatile masses. [] Skin: Warm, dry, no erythema, no rash. [] Back: No tenderness, no CVA tenderness. [] Extremities: No tenderness, no cyanosis, no clubbing, ROM intact, no edema. [] Neurologic: Alert and oriented X 3, normal motor function, normal sensory function, no focal deficits noted. [] Psychologic: Affect normal, judgement normal, mood normal. [] Current Patient Data Vital Signs Vital Signs Date Time Temp Pulse Resp B/P (MAP) Pulse Ox O2 Delivery O2 Flow Rate FiO2 11/11/18 12:34 87 16 127/57 (80) 99 Room Air 11/11/18 11:32 98.2 98.2 EKG EKG [] Radiology/Procedures Radiology/Procedures Chest x-ray was done last night and read 1. Mild right greater than left basilar interstitial opacities. Correlate for aspiration. 2. COPD. Course & Med Decision Making Course & Med Decision Making Pertinent Labs and Imaging studies reviewed. (See chart for details) Will get labs and page Dr. Gilbert for admission for malnutrition and dysphagia. Discussed with Dr. Thomas on behalf of Dr. Gilbert who accepts admission. Will consult GI, and Dr. MARTINS. Heidi Disclaimer Heidi Disclaimer This electronic medical record was generated, in whole or in part, using a voice recognition dictation system. Departure Departure Impression: Primary Impression: Esophageal dysfunction Additional Impressions: Dysphagia Malnutrition Disposition: 09 ADMITTED INPATIENT Admitting Physician: Madi. Bradley Condition: STABLE Referrals: NOELLE QUIGLEY (PCP) Problem Qualifiers Additional Impressions: Dysphagia Dysphagia type: unspecified Qualified Codes: R13.10 - Dysphagia, unspecified Malnutrition Malnutrition type: protein-calorie malnutrition Protein-calorie malnutrition severity: moderate Qualified Codes: E44.0 - Moderate protein- calorie malnutrition TOBI AZAR APRN Nov 11, 2018 11:39
[2018-11-11] MEDS ORDERED: ONDANSETRON PF 4 MG/2 ML VIAL. IV PRN (13:00)
[2018-11-11 13:09] LABS: BASO % 1 % (0-3); EOS % 1 % (0-3); HEMATOCRIT 34.5 % (36.0-47.0); HEMOGLOBIN 11.4 g/dL (12.0-15.5); LYMPH # 0.5 x10^3/uL (1.0-4.8); LYMPH % 10 % (24-48); MEAN CORPUSCULAR HEMOGLOBIN 30 pg (25-35); MEAN CORPUSCULAR HGB CONC 33 g/dL (31-37); MEAN CORPUSCULAR VOLUME 90 fL (79-100); MONO # 0.3 x10^3/uL (0.0-1.1); MONO % 6 % (0-9); NEUT # 4.5 x10^3/uL (1.8-7.7); NEUT % 83 % (31-73); PLATELET COUNT 352 x10^3/uL (140-400); RED BLOOD COUNT 3.84 x10^6/uL (3.50-5.40); RED CELL DISTRIBUTION WIDTH 16.4 % (11.5-14.5); WHITE BLOOD COUNT 5.4 x10^3/uL (4.0-11.0)
[2018-11-11 13:12] LABS: CREATININE 0.4 mg/dL (0.6-1.0); POTASSIUM 4.6 mmol/L (3.5-5.1)
[2018-11-11] MEDS ORDERED: HYDROcodon/APAP 7.5/325MG ORAL 15 ML SOLUTION PO ONE (13:15)
[2018-11-11 13:17] LABS: ALBUMIN 2.7 g/dL (3.4-5.0); ALBUMIN/GLOBULIN RATIO 0.6 (1.0-1.7); TOTAL BILIRUBIN 0.4 mg/dL (0.2-1.0); TOTAL PROTEIN 6.9 g/dL (6.4-8.2)
--- NOTE | 2018-11-11 14:21 | PDOC2 ---
GI CONSULT Reason For Consult: Dysphagia HPI: HPI: 73 y/o female who we have seen recently - see GI consult and following progress note from 10/26 and 10/27/18. Has metastatic lung cancer - finished radiation about 1 month ago. Last time they said another biopsy/bronchoscopy was on hold. Has h/o recurrent esophageal stricture w/ past dilations and now w/ esophageal stent (placed 09/10/18). PEG tube placement discussed w/ Dr. Olsen in the office in the past - recommended against this w/ esophageal stent in place. Last admission we saw for cough and dysphagia w/ concern for aspiration, also asked to discuss PEG placement again. Had barium swallow/UGI which noted delayed passage of contrast and proximal esophageal dilation w/ moderate residual contrast material within the proximal esophagus and esophageal stent at the end of exam - stenosis throughout the majority of esophageal stent was suspected and normal gastric emptying was noted along. No aspiration noted. Also had [facility] eval - exam c/w esophageal dysfunction. Offered EGD/re-dilation (though unclear if would be helpful without distinct area of stricture) - they declined. She was tolerating diet when discharged on 10/27. Back to ER today. She reports "filling up" in upper chest when eating and drinking w/ coughing (immediately after eating or can occur 45 min later), choking, and sometimes is unable to catch her breath. Does not cough up food or liquids. Feels gurgling in lower chest and upper abdomen. Hurts all over. No odynophagia. says they have come to the hospital to get a feeding tube and they have talked about it w/ other doctors and have been told it's not a complicated procedure and should be no problem. He says she has almost at home from not being able to catch her breath and she "turned blue." He says she is down to 65 pounds and she needs nutrition or she will . Neither pt or are interested in pursuing EGD. PMH: PMH: carotid artery disease, anemia, DM, proteinuria, lung cancer/radiation right wrist surgery, lymph node biopsy FH: Family History: No pertinent hx Social History: Smoke: Quit ALCOHOL: none Drugs: None ROS: GEN: Denies fevers, chills, sweats HEENT: Denies blurred vision, sore throat CV: Denies chest pain RESP: Denies shortness of air, cough GI: Per HPI : Denies hematuria, dysuria ENDO: Denies weight changes NEURO: Denies confusion, dizziness MSK: Denies weakness, joint pain/swelling SKIN: Denies jaundice, pruritus Vitals: Vitals: Vital Signs Date Time Temp Pulse Resp B/P (MAP) Pulse Ox O2 Delivery O2 Flow Rate FiO2 11/11/18 13:25 18 Room Air 11/11/18 12:34 87 127/57 (80) 99 11/11/18 11:32 98.2 98.2 Labs: Labs: Laboratory Tests Test 11/11/18 12:40 White Blood Count 5.4 x10^3/uL (4.0-11.0) Red Blood Count 3.84 x10^6/uL (3.50-5.40) Hemoglobin 11.4 g/dL (12.0-15.5) Hematocrit 34.5 % (36.0-47.0) Mean Corpuscular Volume 90 fL (79-100) Mean Corpuscular Hemoglobin 30 pg (25-35) Mean Corpuscular Hemoglobin Concent 33 g/dL (31-37) Red Cell Distribution Width 16.4 % (11.5-14.5) Platelet Count 352 x10^3/uL (140-400) Neutrophils (%) (Auto) 83 % (31-73) Lymphocytes (%) (Auto) 10 % (24-48) Monocytes (%) (Auto) 6 % (0-9) Eosinophils (%) (Auto) 1 % (0-3) Basophils (%) (Auto) 1 % (0-3) Neutrophils # (Auto) 4.5 x10^3/uL (1.8-7.7) Lymphocytes # (Auto) 0.5 x10^3/uL (1.0-4.8) Monocytes # (Auto) 0.3 x10^3/uL (0.0-1.1) Eosinophils # (Auto) 0.0 x10^3/uL (0.0-0.7) Basophils # (Auto) 0.0 x10^3/uL (0.0-0.2) Sodium Level 140 mmol/L (136-145) Potassium Level 4.6 mmol/L (3.5-5.1) Chloride Level 102 mmol/L (98-107) Carbon Dioxide Level 31 mmol/L (21-32) Anion Gap 7 (6-14) Blood Urea Nitrogen 8 mg/dL (7-20) Creatinine 0.4 mg/dL (0.6-1.0) Estimated GFR (Cockcroft-Gault) 156.0 BUN/Creatinine Ratio 20 (6-20) Glucose Level 129 mg/dL (70-99) Calcium Level 9.0 mg/dL (8.5-10.1) Total Bilirubin 0.4 mg/dL (0.2-1.0) Aspartate Amino Transf (AST/SGOT) 15 U/L (15-37) Alanine Aminotransferase (ALT/SGPT) 19 U/L (14-59) Alkaline Phosphatase 116 U/L (46-116) Total Protein 6.9 g/dL (6.4-8.2) Albumin 2.7 g/dL (3.4-5.0) Albumin/Globulin Ratio 0.6 (1.0-1.7) Allergies: Coded Allergies: clarithromycin (Verified Allergy, Intermediate, 10/26/18) denosumab (Verified Allergy, Intermediate, 10/26/18) erythromycin base (Verified Allergy, Intermediate, 09/09/18) lisinopril (Verified Allergy, Intermediate, 09/09/18) losartan (Verified Allergy, Intermediate, 09/09/18) sitagliptin (Verified Allergy, Intermediate, 10/26/18) Sulfa (Sulfonamide Antibiotics) (Verified Allergy, Mild, 10/26/18) azithromycin (Verified Allergy, Unknown, 11/11/18) methocarbamol (Verified Allergy, Unknown, 11/11/18) Medications: Current Medications Medications (Trade) Dose Ordered Sig/Ross Route PRN Reason Start Time Stop Time Status Last Admin Dose Admin Sodium Chloride 1,000 ml @ 1,000 mls/hr 1X ONCE IV 11/11/18 11:30 11/11/18 12:29 DC 11/11/18 12:23 Acetaminophen/ Hydrocodone Bitart (Lortab 7.5-325/ 15ml Oral Solution) 15 ml 1X ONCE PO 11/11/18 13:15 11/11/18 13:16 DC 11/11/18 13:25 Imaging: Imaging: - PE: GEN: thin, looks ill HEENT: Atraumatic, PERRL, voice quiet/hoarse LUNGS: room air - lots of coughing after taking liquid medication HEART: RRR ABD: NABS, S/ND, vague epigastric discomfort EXTREMITY: No edema SKIN: No rashes, no jaundice NEURO/PSYCH: A & O 3 A/P: A/P: Recurrent esophageal stricture - esophageal stent in place w/ dysphagia, coughing, and weight loss Metastatic lung cancer Chronic anemia, hypoalbuminemia -- Ongoing issue - has discussed in detail w/ pt and in the past. No aspiration on imaging from 10/26; however, possible aspiration risk w/ esophageal dysfunction - PEG/G tube wouldn't help this, and PEG also not an option w/ stent. Again offered EGD (r/o retained food, ?re-dilate) - they declined - Dr. Olsen will see this afternoon to discuss. Will ask surgery to comment. ?chest imaging CANDICE ZURITA Nov 11, 2018 14:21
[2018-11-11] MEDS ORDERED: ALBU2.5V5 NEB (14:23)
[2018-11-11 15:00] VITALS: BP 130/69
[2018-11-11] MEDS ORDERED: ALBUTEROL SULFATE 2.5 MG/3 ML NEBU. NEB PRN (16:30)
[2018-11-11] MEDS ORDERED: HYDROcodon/APAP 7.5/325MG ORAL 15 ML SOLUTION PO PRN (16:30)
[2018-11-11] MEDS ORDERED: DEXTROSE 50% 25 GM / 50ML DISP.SYRIN. IV PRN (16:30)
[2018-11-11] MEDS: PANTOPRAZOLE IV PUSH 40 MG VIAL. IVP SCH (16:36)
[2018-11-11] MEDS: AMINO AC 3%/ELECTROLYTE/GLYCER 1,000 ML IV SCH (16:41)
[2018-11-11] MEDS: INSULIN LISPRO 300 UNITS/3 ML VIAL. SQ SCH (16:51)
[2018-11-11] MEDS: ALBUTEROL SULFATE 2.5 MG/3 ML NEBU. NEB SCH ×2 (17:07→19:47)
[2018-11-11 19:00] VITALS: BP 100/44
[2018-11-11 23:01] VITALS: BP 101/45
--- NOTE | 2018-11-12 01:16 | CONS ---
DATE OF CONSULTATION: 11/11/2018 MEDICAL ONCOLOGY CONSULTATION CONSULTATION REQUESTED BY: Kirk Gilbert MD REASON FOR CONSULTATION: Non-small cell lung cancer, now admitted with dysphagia. HISTORY OF PRESENTING ILLNESS: The patient is a 73-year-old female, who has had dysphagia since 04/2018. In 09/2018, she underwent EGD with dilatation and esophageal stent placement. She has a good appetite, but she continues to lose weight because of dysphagia. PET scan on 07/28/2018 revealed hypermetabolic abnormalities in the left upper lobe, left apical pleural region, an extensive hypermetabolic mediastinum and right subclavian region. Biopsy of the right supraclavicular lymph node was obtained on 08/25/2018 and the cytology revealed malignancy with a differential diagnosis of non-small cell lung cancer versus melanoma. I discussed with the pathologist, who felt that this was more likely a non-small cell lung cancer. There was not enough tissue for further diagnostic studies or biomarker evaluation. She underwent radiation therapy to the central mediastinum and the esophagus from 09/28/2018 through 10/12/2018 for a total dose of 30 Gy; however, she has not had any improvement in the dysphagia. PAST MEDICAL HISTORY: Coronary artery disease, anemia, diabetes mellitus, proteinuria. FAMILY HISTORY: Positive for diabetes and breast cancer and colon, lung and ovarian cancer. SOCIAL HISTORY: She has history of smoking that she quit in 2018. She has smoked approximately 1 pack a day for 40 years. REVIEW OF SYSTEMS: A 12-point review of system was performed. Pertinent positives are mentioned in the history of present illness. Rest of the system review is negative. PHYSICAL EXAMINATION: GENERAL APPEARANCE: The patient is a 73-year-old female, who is in no acute cardiorespiratory distress. VITAL SIGNS: Blood pressure 130/69, temperature 97.8. HEENT: Atraumatic, normocephalic. EYES: No icterus. NECK: Supple. CHEST: Bilaterally symmetrical. HEART: S1, S2 normal. ABDOMEN: Soft, nontender. CENTRAL NERVOUS SYSTEM: No focal deficits. LYMPHATICS: No lymphadenopathy. SKIN: No rashes. PSYCHOLOGIC: Mood and affect are appropriate. LABORATORY DATA: WBC 5.4, hemoglobin 11.4, platelet count 352, creatinine 0.4. IMPRESSION AND PLAN: 1. Non-small cell lung cancer involving the left upper lobe. PET scan on 07/28/2018 revealed a 2-cm spiculated nodule in the left upper lobe with contiguous hypermetabolic tissue within the mediastinum, involving both the right and left aspects of the upper mediastinum extending into the subcarinal lymph node suggesting confluent adenopathy. There is hypermetabolic right subclavian level nodule. Small peripheral 1 cm spiculated density abutting the pleura and the posterior lateral aspect of the right upper lobe and a small nodule in the left upper lobe are also noted. Clinically, this is concerning for stage 4 malignancy. She underwent right supraclavicular lymph node biopsy on 08/25/2018 and there was not enough tissue to check for biomarkers. She was referred to for further biomarker testing. She underwent radiation therapy to the central mediastinum and esophagus from 09/28/2018 through 10/12/[address] Baez. Plan immunotherapy or chemotherapy depending on the biomarker results and she has an appointment with Pulmonary Medicine at [facility] for possible biopsy. She was told that another CAT scan will be done prior to deciding on the biopsy. 2. Dysphagia, status post esophageal stent placement in 09/2018 and she completed palliative radiation therapy. However, she has persistent symptoms and hence Gastroenterology was consulted, who suggested considering feeding tube placement at [facility]. The patient wants to be transferred to [facility]. She will discuss with primary care physician regarding transfer. I discussed with registered nurse. TERRI MARTINS MD DR: RHIANNON/karolina JOB#: [id number] / [id number] VENU
[2018-11-12 03:01] VITALS: BP 120/55
[2018-11-12] MEDS: ALBUTEROL SULFATE 2.5 MG/3 ML NEBU. NEB SCH ×4 (03:28→19:39)
[2018-11-12] MEDS: PANTOPRAZOLE IV PUSH 40 MG VIAL. IVP SCH (05:59)
[2018-11-12] MEDS: AMINO AC 3%/ELECTROLYTE/GLYCER 1,000 ML IV SCH ×2 (05:59→18:07)
[2018-11-12 07:00] VITALS: BP 127/52
[2018-11-12] MEDS: fentaNYL PF VIAL 100 MCG/2 ML VIAL IVP PRN ×2 (08:14→14:50)
[2018-11-12] MEDS: INSULIN LISPRO 300 UNITS/3 ML VIAL. SQ SCH ×3 (08:22→17:00)
[2018-11-12 11:00] VITALS: BP 119/60
--- NOTE | 2018-11-12 11:30 | PDOC ---
Provider Note Provider Note Pt seen .H&P dictated.#[id number]. DAYSI PITTS MD Nov 12, 2018 11:30
--- NOTE | 2018-11-12 11:50 | NUR ---
Pt's states she feels as if her BS feels low. BS checked at 66. Pt. given apple juice and clear liquid lunch tray.
[2018-11-12] MEDS ORDERED: fentaNYL 12MCG/HR PATCH 1 PATCH PATCH.TD72 TD SCH (12:00)
--- NOTE | 2018-11-12 12:13 | HP ---
ADMIT DATE: 11/11/2018 PATIENT LOCATION: [id number]. REASON FOR ADMISSION TO THE HOSPITAL: Dysphagia, weight loss, history of stage 4 metastatic lung cancer. HISTORY OF PRESENT ILLNESS: The patient is a 73-year-old female, patient of Dr. Gilbert. The patient has been having difficulty in eating and drinking. She has a feeling of sensation, getting stuck in the throat and she had a history of stage 4 lung cancer, non-small cell, and the patient had an EGD, had esophageal stent placed in last month. PET scan shows hypermetabolic abnormality, left upper lobe mass at the subclavicular gland pointing towards non-small cell lung cancer and the patient had a radiation treatment from 09/28/2018 to 10/12/2018. The patient continues to have dysphagia. She feels that food stuck in the throat does not go down into the food pipe and she has been losing weight. Family is interested in feeding tube. PAST MEDICAL HISTORY: Coronary artery disease, anemia, diabetes, proteinuria. PAST SURGICAL HISTORY: Had EGD, esophageal stent, biopsy of the lymph node. FAMILY HISTORY: Positive for diabetes, breast cancer, lung and ovarian cancer in the family. SOCIAL HISTORY: Smoker, quit in 2018, 40 pack years. MEDICATIONS: She is getting Lortab elixir for pain. REVIEW OF SYSTEMS: Complains of weight loss, difficulty in swallowing and has been losing weight. PHYSICAL EXAMINATION: GENERAL: The patient looks thin and cachectic. The patient's weight is 31 kg, height is 152 cm. VITAL SIGNS: Temperature 98, pulse 80, respirations 20, blood pressure 100/55 and O2 saturation 96% on room air. HEENT: Head is atraumatic. Pupils equal. Oral cavity, no congestion. NECK: Supple. Thyroid not enlarged. JVD not elevated. CHEST: Symmetrical, COPD pattern. CARDIOVASCULAR: S1, S2. LUNGS: Diminished breath sounds. No wheezing. ABDOMEN: Soft, no mass palpable. EXTERNAL GENITALIA: No Land. RECTAL: Deferred. EXTREMITIES: No calf tenderness, no edema. NEUROLOGIC: Moving all extremities. No focal deficits noted. LABORATORY DATA: Shows a white count of 5, hemoglobin 11, and platelets 352. Electrolytes: Sodium 140, potassium 4.6, chloride 102, bicarbonate 31, BUN 8, creatinine 0.4, glucose 129. LFTs were normal. FINAL IMPRESSION: 1. Progressive dysphagia and weight loss 2.Stage 4 metastatic lung cancer, non-small cell. The patient underwent radiation treatment. 3. History of recent esophageal stent placement.Not helping with swallowing. 4. Diabetes. 5. Progressive weight loss. PLAN: At this time, she was admitted to the hospital. GI was consulted for possible feeding tube, but I does not think she could be a candidate for a PEG tube. Also, I have General Surgery to see if they can do a feeding tube either a PEG or J-tube and continue procalamine. In the meantime, discussed with the patient's and also RN. Pain controlled with fentanyl. DAYSI PITTS MD DR: OKSANA/karolina JOB#: [id number] / [id number] VENU
--- NOTE | 2018-11-12 12:17 | NUR ---
BS rechecked at 110.
--- NOTE | 2018-11-12 13:50 | PDOC2 ---
CONSULT Date of Consult Date of Consult DATE: 11/12/18 TIME: 13:33 Reason for Consult Reason for Consult: enteric feeding tube placement Referring Physician Referring Physician: Dr Gilbert Identification/Chief Complaint Chief Complaint dysphagia Source Source: Caregiver, Chart review, Patient History of Present Illness Reason for Visit: Ms Maher is a 73 yo lady with Stage IV lung cancer. She has an esophageal stent and has issues with slowing oral intake 2/2 choking. We are asked to see for possible enteric feeding tube Past Medical History Cardiovascular: CAD Pulmonary: Other (cancer) Renal/: Other Endocrine: Diabetes Past Surgical History Past Surgical History: Other (EGD with stent, biopsy lung mass, LN), No pertinent history Family History Family History: Cancer (breast, ovarian), Diabetes Social History Quit ALCOHOL: none Drugs: None Current Problem List Problem List Problems Medical Problems: (1) Dysphagia Status: Acute (2) Malnutrition Status: Acute Current Medications Current Medications Current Medications Sodium Chloride 1,000 ml @ 1,000 mls/hr 1X ONCE IV Last administered on 11/11/18at 12:23; Start 11/11/18 at 11:30; Stop 11/11/18 at 12:29; Status DC Ondansetron HCl (Zofran) 4 mg PRN Q8HRS PRN IV NAUSEA/VOMITING; Start 11/11/18 at 13:00; Stop 11/12/18 at 12:59; Status DC Acetaminophen/ Hydrocodone Bitart (Lortab 7.5-325/ 15ml Oral Solution) 15 ml 1X ONCE PO Last administered on 11/11/18at 13:25; Start 11/11/18 at 13:15; Stop 11/11/18 at 13:16; Status DC Pantoprazole Sodium (PROTONIX VIAL for IV PUSH) 40 mg DAILYAC IVP Last administered on 11/12/18at 05:59; Start 11/11/18 at 16:00 Albuterol Sulfate (Ventolin Neb Soln) 2.5 mg RTQID NEB Last administered on 11/12/18at 11:07; Start 11/11/18 at 20:00 Acetaminophen/ Hydrocodone Bitart (Lortab 7.5-325/ 15ml Oral Solution) 15 ml PRN Q6HRS PRN PO PAIN Last administered on 11/11/18at 20:26; Start 11/11/18 at 16:30 Albuterol Sulfate (Ventolin Neb Soln) 2.5 mg PRN Q4HRS PRN NEB SHORTNESS OF BREATH; Start 11/11/18 at 16:30 Amino Acids/ Glycerin/ Electrolytes 1,000 ml @ 80 mls/hr [id number] IV Last administered on 11/12/18at 05:59; Start 11/11/18 at 16:30 Insulin Human Lispro (HumaLOG) 0-5 UNITS TIDWMEALS SQ Last administered on 11/12/18at 08:22; Start 11/11/18 at 17:00 Dextrose (Dextrose 50%-Water Syringe) 12.5 gm PRN Q15MIN PRN IV SEE COMMENTS; Start 11/11/18 at 16:30 Fentanyl Citrate (Fentanyl 2ml Vial) 25 mcg PRN Q3HRS PRN IVP PAIN Last administered on 11/12/18at 08:14; Start 11/12/18 at 06:45 Fentanyl (Duragesic 12mcg/ Hr Patch) 1 patch Q3DAYS TD ; Start 11/12/18 at 12:00 Active Scripts Active Reported Albuterol Sulfate Neb Soln (Albuterol Sulfate) 2.5 Mg/3 Ml Vial.neb 1 Vial NEB QID Hydrocodone-Apap 7.5-325/15 Soln (Hydrocodone Bit/Acetaminophen) 15 Ml Solution 15 Ml PO PRN Q6HRS PRN Levemir (Insulin Detemir) 100 Unit/1 Ml Vial 5 Unit SQ HS Allergies Allergies: Coded Allergies: clarithromycin (Verified Allergy, Intermediate, 10/26/18) denosumab (Verified Allergy, Intermediate, 10/26/18) erythromycin base (Verified Allergy, Intermediate, 09/09/18) lisinopril (Verified Allergy, Intermediate, 09/09/18) losartan (Verified Allergy, Intermediate, 09/09/18) sitagliptin (Verified Allergy, Intermediate, 10/26/18) Sulfa (Sulfonamide Antibiotics) (Verified Allergy, Mild, 10/26/18) azithromycin (Verified Allergy, Unknown, 11/11/18) methocarbamol (Verified Allergy, Unknown, 11/11/18) ROS General: YES: Other (weight loss) Respiratory: YES: SOB with excertion Gastrointestinal: Yes Other (reflux) Physical Exam General: Alert, Other (cachetic) HEENT: Atraumatic Lungs: Normal air movement Heart: Regular rate Abdomen: Other (scaphoid) Skin: Other (warm, dry) Vitals VITALS Vital Signs Date Time Temp Pulse Resp B/P (MAP) Pulse Ox O2 Delivery O2 Flow Rate FiO2 11/12/18 11:08 97 Room Air 11/12/18 11:00 98.6 95 20 119/60 (79) 98.6 Labs Labs Laboratory Tests Test 11/11/18 12:40 11/11/18 16:48 11/11/18 20:29 11/12/18 08:01 White Blood Count 5.4 x10^3/uL (4.0-11.0) Red Blood Count 3.84 x10^6/uL (3.50-5.40) Hemoglobin 11.4 g/dL (12.0-15.5) Hematocrit 34.5 % (36.0-47.0) Mean Corpuscular Volume 90 fL (79-100) Mean Corpuscular Hemoglobin 30 pg (25-35) Mean Corpuscular Hemoglobin Concent 33 g/dL (31-37) Red Cell Distribution Width 16.4 % (11.5-14.5) Platelet Count 352 x10^3/uL (140-400) Neutrophils (%) (Auto) 83 % (31-73) Lymphocytes (%) (Auto) 10 % (24-48) Monocytes (%) (Auto) 6 % (0-9) Eosinophils (%) (Auto) 1 % (0-3) Basophils (%) (Auto) 1 % (0-3) Neutrophils # (Auto) 4.5 x10^3/uL (1.8-7.7) Lymphocytes # (Auto) 0.5 x10^3/uL (1.0-4.8) Monocytes # (Auto) 0.3 x10^3/uL (0.0-1.1) Eosinophils # (Auto) 0.0 x10^3/uL (0.0-0.7) Basophils # (Auto) 0.0 x10^3/uL (0.0-0.2) Sodium Level 140 mmol/L (136-145) Potassium Level 4.6 mmol/L (3.5-5.1) Chloride Level 102 mmol/L (98-107) Carbon Dioxide Level 31 mmol/L (21-32) Anion Gap 7 (6-14) Blood Urea Nitrogen 8 mg/dL (7-20) Creatinine 0.4 mg/dL (0.6-1.0) Estimated GFR (Cockcroft-Gault) 156.0 BUN/Creatinine Ratio 20 (6-20) Glucose Level 129 mg/dL (70-99) Calcium Level 9.0 mg/dL (8.5-10.1) Total Bilirubin 0.4 mg/dL (0.2-1.0) Aspartate Amino Transf (AST/SGOT) 15 U/L (15-37) Alanine Aminotransferase (ALT/SGPT) 19 U/L (14-59) Alkaline Phosphatase 116 U/L (46-116) Total Protein 6.9 g/dL (6.4-8.2) Albumin 2.7 g/dL (3.4-5.0) Albumin/Globulin Ratio 0.6 (1.0-1.7) Glucose (Fingerstick) 96 mg/dL (70-99) 167 mg/dL (70-99) 197 mg/dL (70-99) Test 11/12/18 11:49 11/12/18 12:12 11/12/18 13:08 Glucose (Fingerstick) 66 mg/dL (70-99) 110 mg/dL (70-99) 165 mg/dL (70-99) Laboratory Tests Test 11/11/18 16:48 11/11/18 20:29 11/12/18 08:01 11/12/18 11:49 Glucose (Fingerstick) 96 mg/dL (70-99) 167 mg/dL (70-99) 197 mg/dL (70-99) 66 mg/dL (70-99) Test 11/12/18 12:12 11/12/18 13:08 Glucose (Fingerstick) 110 mg/dL (70-99) 165 mg/dL (70-99) Assessment/Plan Assessment/Plan Stage IV lung cancer s/p RoRx esophageal stricture s/p EGD with stent placement Spent time answering questions for Mr Nika Maher poses a significant surgical risk given her current state of malnutrition, malignancy per GI note, possible IR placement of tube at [facility] no acute surgical recs will follow with you Thanks for consult JAKE NG MD Nov 12, 2018 13:50
--- NOTE | 2018-11-12 13:55 | PDOC ---
G I PROGRESS NOTE Subjective No new complaints. Many questions re: tube as before. Attempted to address all. Physical Exam Cachectic. Lungs clear anteriorly. RRR Abdomen soft, not tender. Review of Relevant I have reviewed the following items sky (where applicable) has been applied. Labs Laboratory Tests Test 11/11/18 12:40 11/11/18 16:48 11/11/18 20:29 11/12/18 08:01 White Blood Count 5.4 x10^3/uL (4.0-11.0) Red Blood Count 3.84 x10^6/uL (3.50-5.40) Hemoglobin 11.4 g/dL (12.0-15.5) Hematocrit 34.5 % (36.0-47.0) Mean Corpuscular Volume 90 fL (79-100) Mean Corpuscular Hemoglobin 30 pg (25-35) Mean Corpuscular Hemoglobin Concent 33 g/dL (31-37) Red Cell Distribution Width 16.4 % (11.5-14.5) Platelet Count 352 x10^3/uL (140-400) Neutrophils (%) (Auto) 83 % (31-73) Lymphocytes (%) (Auto) 10 % (24-48) Monocytes (%) (Auto) 6 % (0-9) Eosinophils (%) (Auto) 1 % (0-3) Basophils (%) (Auto) 1 % (0-3) Neutrophils # (Auto) 4.5 x10^3/uL (1.8-7.7) Lymphocytes # (Auto) 0.5 x10^3/uL (1.0-4.8) Monocytes # (Auto) 0.3 x10^3/uL (0.0-1.1) Eosinophils # (Auto) 0.0 x10^3/uL (0.0-0.7) Basophils # (Auto) 0.0 x10^3/uL (0.0-0.2) Sodium Level 140 mmol/L (136-145) Potassium Level 4.6 mmol/L (3.5-5.1) Chloride Level 102 mmol/L (98-107) Carbon Dioxide Level 31 mmol/L (21-32) Anion Gap 7 (6-14) Blood Urea Nitrogen 8 mg/dL (7-20) Creatinine 0.4 mg/dL (0.6-1.0) Estimated GFR (Cockcroft-Gault) 156.0 BUN/Creatinine Ratio 20 (6-20) Glucose Level 129 mg/dL (70-99) Calcium Level 9.0 mg/dL (8.5-10.1) Total Bilirubin 0.4 mg/dL (0.2-1.0) Aspartate Amino Transf (AST/SGOT) 15 U/L (15-37) Alanine Aminotransferase (ALT/SGPT) 19 U/L (14-59) Alkaline Phosphatase 116 U/L (46-116) Total Protein 6.9 g/dL (6.4-8.2) Albumin 2.7 g/dL (3.4-5.0) Albumin/Globulin Ratio 0.6 (1.0-1.7) Glucose (Fingerstick) 96 mg/dL (70-99) 167 mg/dL (70-99) 197 mg/dL (70-99) Test 11/12/18 11:49 11/12/18 12:12 11/12/18 13:08 Glucose (Fingerstick) 66 mg/dL (70-99) 110 mg/dL (70-99) 165 mg/dL (70-99) Laboratory Tests Test 11/11/18 16:48 11/11/18 20:29 11/12/18 08:01 11/12/18 11:49 Glucose (Fingerstick) 96 mg/dL (70-99) 167 mg/dL (70-99) 197 mg/dL (70-99) 66 mg/dL (70-99) Test 11/12/18 12:12 11/12/18 13:08 Glucose (Fingerstick) 110 mg/dL (70-99) 165 mg/dL (70-99) Vitals/I & O Vital Sign - Last 24 Hours 11/11/18 11/11/18 11/11/18 11/11/18 13:52 15:00 15:19 17:09 Temp 97.8 97.8 Pulse 79 81 Resp 16 16 B/P (MAP) 123/59 (80) 130/69 (89) Pulse Ox 98 98 98 O2 Delivery Room Air Room Air Room Air Room Air 11/11/18 11/11/18 11/11/18 11/11/18 19:00 19:48 20:00 20:26 Temp 97.5 97.5 Pulse 85 Resp 20 B/P (MAP) 100/44 (62) Pulse Ox 96 100 100 O2 Delivery Room Air Room Air Room Air Room Air 11/11/18 11/11/18 11/12/18 11/12/18 21:26 23:01 03:01 03:28 Temp 98.1 98.2 98.1 98.2 Pulse 80 79 Resp 20 20 B/P (MAP) 101/45 (63) 120/55 (76) Pulse Ox 100 94 96 O2 Delivery Room Air Room Air Room Air Room Air 11/12/18 11/12/18 11/12/18 11/12/18 07:00 07:23 07:55 08:14 Temp 98.6 98.6 Pulse 99 Resp 20 B/P (MAP) 127/52 (77) Pulse Ox 96 97 O2 Delivery Room Air Room Air Room Air Room Air 11/12/18 11/12/18 11:00 11:08 Temp 98.6 98.6 Pulse 95 Resp 20 B/P (MAP) 119/60 (79) Pulse Ox 95 97 O2 Delivery Room Air Room Air Intake and Output 11/11/18 11/11/18 11/12/18 15:00 23:00 07:00 Intake Total 700 ml Balance 700 ml Problem List Problems Medical Problems: (1) Dysphagia Status: Acute (2) Malnutrition Status: Acute Assessment Mediastinal adenopathy-->esophageal compression-->dysphagia-->S/p stent, but unable to eat; suspect lack of distal motility in esophagus at least contributes. Gastrostomy would aid nutritional status; Could not guarantee safe passage of tube through the stent w/o dislodging stent. Plan of Care Note Agree with consideration of IR--placed tube. Not available here; is at [facility]. TOBI RODRIGUES MD Nov 12, 2018 13:55
[2018-11-12 15:00] VITALS: BP 117/52
[2018-11-12 19:00] VITALS: BP 132/58
[2018-11-12 23:00] VITALS: BP 134/50
[2018-11-13 03:00] VITALS: BP 134/60
[2018-11-13] MEDS: fentaNYL PF VIAL 100 MCG/2 ML VIAL IVP PRN ×5 (03:35→21:57)
[2018-11-13] MEDS: PANTOPRAZOLE IV PUSH 40 MG VIAL. IVP SCH (06:33)
[2018-11-13] MEDS: AMINO AC 3%/ELECTROLYTE/GLYCER 1,000 ML IV SCH ×2 (06:33→18:30)
[2018-11-13 07:00] VITALS: BP 119/61
[2018-11-13] MEDS: INSULIN LISPRO 300 UNITS/3 ML VIAL. SQ SCH ×3 (08:00→17:00)
[2018-11-13 11:00] VITALS: BP 125/62
--- NOTE | 2018-11-13 11:15 | PDOC ---
PROGRESS NOTES Subjective Subjective no new concerns Objective Objective Vital Signs Date Time Temp Pulse Resp B/P (MAP) Pulse Ox O2 Delivery O2 Flow Rate FiO2 11/13/18 10:00 Room Air 11/13/18 09:30 2.0 11/13/18 07:29 95 11/13/18 07:00 98.0 86 20 119/61 (80) 98.0 Intake and Output 11/13/18 07:00 Intake Total 450 ml Output Total 160 ml Balance 290 ml Intake Oral 450 ml Output Drainage Total 160 ml # Voids 4 Physical Exam Abdomen: Other (scaphoid) Heart: Regular rate General: Alert, Other (cachetic) HEENT: Atraumatic Lungs: Normal air movement MUSCULOSKELETAL: No deformity Neuro: Normal speech Psych/Mental Status: Mental status NL Skin: No breakdown, Other (warm, dry) Diagnosis Problem List Problems Medical Problems: (1) Dysphagia Status: Acute (2) Malnutrition Status: Acute Assessment Assessment Problems Medical Problems: (1) Dysphagia Status: Acute (2) Malnutrition Status: Acute FINAL IMPRESSION: 1. Stage 4 metastatic lung cancer, non-small cell. The patient underwent radiation treatment. 2. Progressive dysphagia. 3. History of recent esophageal stent placement. 4. Diabetes. 5. Progressive weight loss. PLAN: spoke with surgery and noted GI recommendation. pts husbend leaning towards transferring to [facility]. He is going to wait until tomorrow to hear from dr Sol/Memo. procalamine for now. Fentanyl patch+prn iv fentanyl At this time, she was admitted to the hospital. GI was consulted for possible feeding tube, but I does not think she could be a candidate for a PEG tube. Also, I have General Surgery to see if they can do a feeding tube either a PEG or J-tube and continue procalamine. In the meantime, discussed with the patient's and also RN. Pain controlled with fentanyl. Plan Plan of Care Problems Medical Problems: (1) Dysphagia Status: Acute (2) Malnutrition Status: Acute Comment Review of Relevant I have reviewed the following items sky (where applicable) has been applied. Labs Laboratory Tests Test 11/12/18 11:49 11/12/18 12:12 11/12/18 13:08 11/12/18 17:05 Glucose (Fingerstick) 66 mg/dL (70-99) 110 mg/dL (70-99) 165 mg/dL (70-99) 146 mg/dL (70-99) Test 11/12/18 21:04 11/13/18 07:48 Glucose (Fingerstick) 143 mg/dL (70-99) 162 mg/dL (70-99) Medications Current Medications Fentanyl (Duragesic 12mcg/ Hr Patch) 1 patch Q3DAYS TD Last administered on 11/12/18at 18:06; Start 11/12/18 at 12:00 Vitals/I & O Vital Sign - Last 24 Hours 11/12/18 11/12/18 11/12/18 11/12/18 14:25 14:50 15:00 16:21 Temp 97.8 97.8 Pulse 91 Resp 16 B/P (MAP) 117/52 (73) Pulse Ox 97 98 O2 Delivery Room Air Room Air Room Air Room Air 11/12/18 11/12/18 11/12/18 11/12/18 18:06 19:00 19:39 20:00 Temp 98.6 98.6 Pulse 86 Resp 18 B/P (MAP) 132/58 (82) Pulse Ox 98 97 O2 Delivery Room Air Room Air Room Air Room Air 11/12/18 11/12/18 11/13/18 11/13/18 22:06 23:00 03:00 03:35 Temp 98.9 98.3 98.9 98.3 Pulse 84 93 Resp 20 18 18 20 B/P (MAP) 134/50 (78) 134/60 (84) Pulse Ox 95 96 95 O2 Delivery Tracheal Collar Room Air Room Air Room Air 11/13/18 11/13/18 11/13/18 11/13/18 04:05 07:00 07:29 09:30 Temp 98.0 98.0 Pulse 86 Resp 20 20 B/P (MAP) 119/61 (80) Pulse Ox 94 100 95 O2 Delivery Room Air Nasal Cannula Nasal Cannula Nasal Cannula O2 Flow Rate 2.0 2.0 2.0 11/13/18 10:00 O2 Delivery Room Air Intake and Output 11/12/18 11/12/18 11/13/18 15:00 23:00 07:00 Intake Total 450 ml Output Total 160 ml Balance -160 ml 450 ml Nutrition Consultation Dietary Evaluation: Recommendations by RD: PPN/TPN Comments: rec ppn for short term nutrition Expected Outcomes/Goals: to meet > 75% est nutr needs Malnutrition Findings: Muscle Mass (Severe): Severe Depletion Food and Nutrition Intake (Sev: <50% est energy req 5days Weight Status: Underweight DAYSI PITTS MD Nov 13, 2018 11:15
[2018-11-13] MEDS: ALBUTEROL SULFATE 2.5 MG/3 ML NEBU. NEB SCH ×3 (11:19→19:10)
--- NOTE | 2018-11-13 12:15 | PDOC ---
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: No General: Alert, No acute distress, Other (cachectic) Labs Laboratory Tests Test 11/11/18 12:40 11/11/18 16:48 11/11/18 20:29 11/12/18 08:01 White Blood Count 5.4 x10^3/uL (4.0-11.0) Red Blood Count 3.84 x10^6/uL (3.50-5.40) Hemoglobin 11.4 g/dL (12.0-15.5) Hematocrit 34.5 % (36.0-47.0) Mean Corpuscular Volume 90 fL (79-100) Mean Corpuscular Hemoglobin 30 pg (25-35) Mean Corpuscular Hemoglobin Concent 33 g/dL (31-37) Red Cell Distribution Width 16.4 % (11.5-14.5) Platelet Count 352 x10^3/uL (140-400) Neutrophils (%) (Auto) 83 % (31-73) Lymphocytes (%) (Auto) 10 % (24-48) Monocytes (%) (Auto) 6 % (0-9) Eosinophils (%) (Auto) 1 % (0-3) Basophils (%) (Auto) 1 % (0-3) Neutrophils # (Auto) 4.5 x10^3/uL (1.8-7.7) Lymphocytes # (Auto) 0.5 x10^3/uL (1.0-4.8) Monocytes # (Auto) 0.3 x10^3/uL (0.0-1.1) Eosinophils # (Auto) 0.0 x10^3/uL (0.0-0.7) Basophils # (Auto) 0.0 x10^3/uL (0.0-0.2) Sodium Level 140 mmol/L (136-145) Potassium Level 4.6 mmol/L (3.5-5.1) Chloride Level 102 mmol/L (98-107) Carbon Dioxide Level 31 mmol/L (21-32) Anion Gap 7 (6-14) Blood Urea Nitrogen 8 mg/dL (7-20) Creatinine 0.4 mg/dL (0.6-1.0) Estimated GFR (Cockcroft-Gault) 156.0 BUN/Creatinine Ratio 20 (6-20) Glucose Level 129 mg/dL (70-99) Calcium Level 9.0 mg/dL (8.5-10.1) Total Bilirubin 0.4 mg/dL (0.2-1.0) Aspartate Amino Transf (AST/SGOT) 15 U/L (15-37) Alanine Aminotransferase (ALT/SGPT) 19 U/L (14-59) Alkaline Phosphatase 116 U/L (46-116) Total Protein 6.9 g/dL (6.4-8.2) Albumin 2.7 g/dL (3.4-5.0) Albumin/Globulin Ratio 0.6 (1.0-1.7) Glucose (Fingerstick) 96 mg/dL (70-99) 167 mg/dL (70-99) 197 mg/dL (70-99) Test 11/12/18 11:49 11/12/18 12:12 11/12/18 13:08 11/12/18 17:05 Glucose (Fingerstick) 66 mg/dL (70-99) 110 mg/dL (70-99) 165 mg/dL (70-99) 146 mg/dL (70-99) Test 11/12/18 21:04 11/13/18 07:48 11/13/18 11:30 Glucose (Fingerstick) 143 mg/dL (70-99) 162 mg/dL (70-99) 158 mg/dL (70-99) Laboratory Tests Test 11/12/18 12:12 11/12/18 13:08 11/12/18 17:05 11/12/18 21:04 Glucose (Fingerstick) 110 mg/dL (70-99) 165 mg/dL (70-99) 146 mg/dL (70-99) 143 mg/dL (70-99) Test 11/13/18 07:48 11/13/18 11:30 Glucose (Fingerstick) 162 mg/dL (70-99) 158 mg/dL (70-99) Problem List Problems Medical Problems: (1) Dysphagia Status: Acute (2) Malnutrition Status: Acute Assessment/Plan Stage IV lung cancer esophageal stricture s/p placement stent will ask Dr Rubi for input d/w pt and her at the bedside JAKE NG MD Nov 13, 2018 12:15
--- NOTE | 2018-11-13 14:29 | RAD ---
CHEST PA LATERAL History: Lung cancer. Dysphasia. Esophageal stent. Comparison: April 18, 2018 Findings: Hyperinflation. Right midlung faint opacity. No pleural effusion. Normal heart size. Esophageal stent. No pneumothorax. Asymmetric right greater than left apical pleural thickening. Impression: 1. Faint right midlung opacity, may represent atelectasis or consolidation. Recommend follow-up. 2. Hyperinflation. 3. Esophageal stent. Electronically signed by: Randy Dumont DO (11/13/2018 2:25 PM) [facility]
[2018-11-13 15:00] VITALS: BP 121/51
--- NOTE | 2018-11-13 16:35 | NUR ---
Dr. Hernandez notified of pt's concerns of pt not having BM since . Orders received.
[2018-11-13] MEDS ORDERED: MAGNESIUM HYDROXIDE 2,400 MG/30 ML ORAL.SUSP. PO PRN (16:45)
[2018-11-13 19:00] VITALS: BP 117/53
[2018-11-13 23:00] VITALS: BP 118/50
[2018-11-14] MEDS ORDERED: fentaNYL 12MCG/HR PATCH 1 PATCH PATCH.TD72 TD ONE (02:00)
[2018-11-14] MEDS: AMINO AC 3%/ELECTROLYTE/GLYCER 1,000 ML IV SCH ×2 (02:39→13:26)
[2018-11-14] MEDS: fentaNYL PF VIAL 100 MCG/2 ML VIAL IVP PRN ×5 (02:43→20:10)
[2018-11-14 03:00] VITALS: BP 112/56
[2018-11-14 07:00] VITALS: BP 130/63
[2018-11-14] MEDS: PANTOPRAZOLE IV PUSH 40 MG VIAL. IVP SCH (07:13)
[2018-11-14] MEDS: ALBUTEROL SULFATE 2.5 MG/3 ML NEBU. NEB SCH ×4 (07:17→20:27)
[2018-11-14] MEDS: INSULIN LISPRO 300 UNITS/3 ML VIAL. SQ SCH ×3 (07:41→17:00)
--- NOTE | 2018-11-14 09:02 | PDOC ---
CHAMP BELTRÁN REPORTING DEVELOPER 11/14/18 0902: SURGICAL PROGRESS NOTE Subjective asking questions about picc, how long, will she eventually need peg tube, etc Vital Signs Vital Signs Date Time Temp Pulse Resp B/P (MAP) Pulse Ox O2 Delivery O2 Flow Rate FiO2 11/14/18 07:42 Room Air 11/14/18 07:18 98 2.0 11/14/18 07:00 98.6 92 16 130/63 (85) 98.6 I&O Intake and Output 11/14/18 07:00 Intake Total 1080 ml Balance 1080 ml Intake Oral 120 ml IV Total 960 ml # Voids 7 General: Alert, Oriented X3, Cooperative, No acute distress Abdomen: Soft Labs Laboratory Tests Test 11/12/18 11:49 11/12/18 12:12 11/12/18 13:08 11/12/18 17:05 Glucose (Fingerstick) 66 mg/dL (70-99) 110 mg/dL (70-99) 165 mg/dL (70-99) 146 mg/dL (70-99) Test 11/12/18 21:04 11/13/18 07:48 11/13/18 11:30 11/13/18 17:17 Glucose (Fingerstick) 143 mg/dL (70-99) 162 mg/dL (70-99) 158 mg/dL (70-99) 144 mg/dL (70-99) Test 11/13/18 21:17 11/14/18 07:16 Glucose (Fingerstick) 160 mg/dL (70-99) 167 mg/dL (70-99) Laboratory Tests Test 11/13/18 11:30 11/13/18 17:17 11/13/18 21:17 11/14/18 07:16 Glucose (Fingerstick) 158 mg/dL (70-99) 144 mg/dL (70-99) 160 mg/dL (70-99) 167 mg/dL (70-99) Problem List Problems Medical Problems: (1) Abnormal weight loss Status: Chronic (2) Dysphagia Status: Acute (3) Esophageal dysfunction Status: Acute (4) Esophageal stricture Status: Acute (5) Malnutrition Status: Acute (6) Metastatic lung cancer (metastasis from lung to other site) Status: Acute Assessment/Plan feeding options will review with Dr Rubi, ? TPN, PICC MARYELLEN RUBI MD 11/14/18 1045: SURGICAL PROGRESS NOTE Assessment/Plan Pt seen and examined. Agree with Ms. Beltrán's note Pt with c/o choking with any PO intake appears cachetic would favor PICC and TPN prior to surgical enteral access d/w pt and pt's extensively CHAMP BELTRÁN APRN Nov 14, 2018 09:02 MARYELLEN RUBI MD Nov 14, 2018 10:45
--- NOTE | 2018-11-14 09:40 | NUR ---
Pt. states she feels her BS could be low.BS checked at 181.
--- NOTE | 2018-11-14 10:20 | PDOC ---
Subjective: Subjective: Many questions from - they say Dr. Rubi has recommended PICC for TPN w/ consideration for G tube eventually - they want Dr. Olsen's opinion. They want to know what would happen if esophageal stent was removed, has questions re: if tumor has shrunk, etc - asks what imaging we have reviewed. She feels the same - "choking to " and wants me to tell the doctor that. Objective: Objective: IR does not place G tubes here though can be done at [facility]. Reviewed w/ nurse - intermittent coughing/choking w/ clears over the weekend. Vital Signs: Vital Signs Date Time Temp Pulse Resp B/P (MAP) Pulse Ox O2 Delivery O2 Flow Rate FiO2 11/14/18 09:26 Nasal Cannula 2.0 11/14/18 07:18 98 11/14/18 07:00 98.6 92 16 130/63 (85) 98.6 Labs: Laboratory Tests Test 11/13/18 11:30 11/13/18 17:17 11/13/18 21:17 11/14/18 07:16 Glucose (Fingerstick) 158 mg/dL (70-99) 144 mg/dL (70-99) 160 mg/dL (70-99) 167 mg/dL (70-99) Test 11/14/18 09:42 Glucose (Fingerstick) 181 mg/dL (70-99) PE: GEN: thin LUNGS: taking sips of juice and some ice chips, coughing NEURO/PSYCH: A & O 3 A/P: Metastatic lung cancer w/ mediastinal adenopathy and esophageal compression Esophageal stent in place, dysphagia/dysmotility -- Reviewed w/ Dr. Olsen - PICC/TPN not unreasonable to consider in short-term to improve nutrition - d/w nurse to pass on to pt/. CANDICE ZURITA Nov 14, 2018 10:19
[2018-11-14 11:00] VITALS: BP 111/47
--- NOTE | 2018-11-14 11:11 | NUR ---
SS following for discharge planning. SS reviewed pt chart. Pt is from home with spouse and is currently on room air. Pt was previously on services with [employer], ; fax [phone]. SS received notification from Dr. Gilbert and Dr. Rubi that pt will need TPN post discharge. SS contacted [facility], , for benefit check on TPN at home. Srini reported that per Medicare guidelines Medicare WILL pay for TPN in the home is clearly documented in physician notes that "PT WILL REQUIRE TPN FOR 90 DA[address]." Dr. Rubi and Dr. Gilbert notified. SS will continue to follow for discharge planning. Addendum: 11/14/18 at 1116 by JOSE ZHANG [facility] reported that if pt requires TPN for less than 90 days the cost is $110/day out of pocket. Physicians notified.
[2018-11-14 11:37] LABS: HEMATOCRIT 33.9 % (36.0-47.0); HEMOGLOBIN 11.4 g/dL (12.0-15.5); RED BLOOD COUNT 3.84 x10^6/uL (3.50-5.40); RED CELL DISTRIBUTION WIDTH 16.4 % (11.5-14.5); WHITE BLOOD COUNT 5.3 x10^3/uL (4.0-11.0)
[2018-11-14 12:09] LABS: ALBUMIN 2.7 g/dL (3.4-5.0); ALBUMIN/GLOBULIN RATIO 0.7 (1.0-1.7); CALCIUM 9.1 mg/dL (8.5-10.1); CREATININE 0.4 mg/dL (0.6-1.0); POTASSIUM 3.6 mmol/L (3.5-5.1); TOTAL BILIRUBIN 0.3 mg/dL (0.2-1.0); TOTAL PROTEIN 6.7 g/dL (6.4-8.2)
--- NOTE | 2018-11-14 12:25 | NUR ---
Picc RN here to attempt picc line placement at bedside. RN stated pt's vessels were too small for completion of of picc line placement. Dr. Gilbert notified. Orders received. GLEN Arana also notified.
--- NOTE | 2018-11-14 13:58 | PN ---
DATE: 11/14/2018 SUBJECTIVE: The patient and her are still struggling to make a decision regarding her nutrition. I had an extensive discussion about the pros and cons of TPN and putting a PICC line and they seemed to have settled on that decision. PHYSICAL EXAMINATION: GENERAL: When I examined her this morning, she looked pale and cachectic, but no jaundice, cyanosis or thyromegaly. No jugular venous distention. No lower limb edema. VITAL SIGNS: Her heart rate was 92, blood pressure was 130/63, temperature was 98.6, respiratory rate was 16, and oxygen saturation was 96% on 2 liters of oxygen. HEAD, EYES, EARS, NOSE AND THROAT: Showed she is normocephalic, atraumatic. NECK: Supple. HEART: Showed normal first and second heart sounds. No gallop or murmur. CHEST: Clear to auscultation. No crepitation or rhonchi. ABDOMEN: Scaphoid, soft, nontender. NEUROLOGIC: She is awake, alert, responding appropriately. All cranial nerves intact. Moves extremities without difficulty. Her intake was 450, output was 160. LABORATORY DATA: Most recent lab work showed white cell count 5400, hemoglobin 11, hematocrit 34, MCV 90, and platelet count 352,000. Her chemistry showed a serum sodium 140, potassium 4.6, chloride 102, bicarbonate 31, anion gap of 7, BUN 8, creatinine 0.4, estimated GFR was 156 mL per minute. Her glucose 129, calcium was 9. Total bilirubin, AST, ALT, alkaline phosphatase were normal. Total protein was 6.9, albumin was 2.7. ASSESSMENT: 1. Severe cachexia. 2. Dysphagia. 3. Esophageal stricture status post stent placement. 4. Metastatic lung cancer. PLAN: My plan is to consult with the outreach and education social worker and to start the process of placement of the PICC line and also ordering the TPN. I had a lengthy discussion with the patient about the possible side effects including infection, deep venous thrombosis, also abnormal liver enzymes. The patient and her seem to be aware of all these and would like to proceed with TPN. ARIANA WADSWORTH MD DR: MAXIMILIANO/karolina JOB#: [id number] / [id number]
[2018-11-14] MEDS ORDERED: LIDOCAINE WITH 8.4% SOD BICARB 3 ML DISP.SYRIN. ONE (14:17)
[2018-11-14 14:29] LABS: PHOSPHORUS 2.9 mg/dL (2.6-4.7)
[2018-11-14 15:00] VITALS: BP 121/59
--- NOTE | 2018-11-14 15:38 | PDOC ---
PROGRESS NOTES Subjective Subjective HPI - f/u of Non-small cell lung cancer ROS - has dysphagia Objective Objective Vital Signs Date Time Temp Pulse Resp B/P (MAP) Pulse Ox O2 Delivery O2 Flow Rate FiO2 11/14/18 12:20 98 Nasal Cannula 2.0 11/14/18 11:00 98.3 95 16 111/47 (68) 98.3 Intake and Output 11/14/18 07:00 Intake Total 1080 ml Balance 1080 ml Intake Oral 120 ml IV Total 960 ml # Voids 7 Physical Exam Heart: Normal S1, Normal S2 General: Alert, Oriented X3 Lungs: Clear to auscultation Neuro: Normal speech Psych/Mental Status: Mental status NL Assessment Assessment Problems Medical Problems: (1) Abnormal weight loss Status: Chronic (2) Dysphagia Status: Acute (3) Esophageal dysfunction Status: Acute (4) Esophageal stricture Status: Acute (5) Malnutrition Status: Acute (6) Metastatic lung cancer (metastasis from lung to other site) Status: Acute IMPRESSION AND PLAN: 1. Non-small cell lung cancer involving the left upper lobe. PET scan on 07/28/2018 revealed a 2-cm spiculated nodule in the left upper lobe with contiguous hypermetabolic tissue within the mediastinum, involving both the right and left aspects of the upper mediastinum extending into the subcarinal lymph node suggesting confluent adenopathy. There is hypermetabolic right subclavian level nodule. Small peripheral 1 cm spiculated density abutting the pleura and the posterior lateral aspect of the right upper lobe and a small nodule in the left upper lobe are also noted. Clinically, this is concerning for stage 4 malignancy. She underwent right supraclavicular lymph node biopsy on 08/25/2018 and there was not enough tissue to check for biomarkers. She was referred to for further biomarker testing. She underwent radiation therapy to the central mediastinum and esophagus from 09/28/2018 through 10/12/[address] Baez. Plan immunotherapy or chemotherapy depending on the biomarker results and she has an appointment with Pulmonary Medicine at [facility] for possible biopsy. She was told that another CAT scan will be done prior to deciding on the biopsy and she prefers to get it here. 2. Dysphagia, status post esophageal stent placement in 09/2018 and she completed palliative radiation therapy. However, she has persistent symptoms and hence Gastroenterology was consulted, who suggested considering feeding tube placement at [facility]. She d/w Dr Rubi and plan TPN for nutrition. Comment Review of Relevant I have reviewed the following items sky (where applicable) has been applied. Labs Laboratory Tests Test 11/12/18 17:05 11/12/18 21:04 11/13/18 07:48 11/13/18 11:30 Glucose (Fingerstick) 146 mg/dL (70-99) 143 mg/dL (70-99) 162 mg/dL (70-99) 158 mg/dL (70-99) Test 11/13/18 17:17 11/13/18 21:17 11/14/18 07:16 11/14/18 09:42 Glucose (Fingerstick) 144 mg/dL (70-99) 160 mg/dL (70-99) 167 mg/dL (70-99) 181 mg/dL (70-99) Test 11/14/18 11:17 11/14/18 11:25 Glucose (Fingerstick) 186 mg/dL (70-99) White Blood Count 5.3 x10^3/uL (4.0-11.0) Red Blood Count 3.84 x10^6/uL (3.50-5.40) Hemoglobin 11.4 g/dL (12.0-15.5) Hematocrit 33.9 % (36.0-47.0) Mean Corpuscular Volume 88 fL (79-100) Mean Corpuscular Hemoglobin 30 pg (25-35) Mean Corpuscular Hemoglobin Concent 34 g/dL (31-37) Red Cell Distribution Width 16.4 % (11.5-14.5) Platelet Count 418 x10^3/uL (140-400) Sodium Level 138 mmol/L (136-145) Potassium Level 3.6 mmol/L (3.5-5.1) Chloride Level 100 mmol/L (98-107) Carbon Dioxide Level 30 mmol/L (21-32) Anion Gap 8 (6-14) Blood Urea Nitrogen 12 mg/dL (7-20) Creatinine 0.4 mg/dL (0.6-1.0) Estimated GFR (Cockcroft-Gault) 156.0 BUN/Creatinine Ratio 30 (6-20) Glucose Level 201 mg/dL (70-99) Calcium Level 9.1 mg/dL (8.5-10.1) Phosphorus Level 2.9 mg/dL (2.6-4.7) Magnesium Level 2.0 mg/dL (1.8-2.4) Total Bilirubin 0.3 mg/dL (0.2-1.0) Aspartate Amino Transf (AST/SGOT) 9 U/L (15-37) Alanine Aminotransferase (ALT/SGPT) 10 U/L (14-59) Alkaline Phosphatase 110 U/L (46-116) Total Protein 6.7 g/dL (6.4-8.2) Albumin 2.7 g/dL (3.4-5.0) Albumin/Globulin Ratio 0.7 (1.0-1.7) Laboratory Tests Test 11/13/18 17:17 11/13/18 21:17 11/14/18 07:16 11/14/18 09:42 Glucose (Fingerstick) 144 mg/dL (70-99) 160 mg/dL (70-99) 167 mg/dL (70-99) 181 mg/dL (70-99) Test 11/14/18 11:17 11/14/18 11:25 Glucose (Fingerstick) 186 mg/dL (70-99) White Blood Count 5.3 x10^3/uL (4.0-11.0) Red Blood Count 3.84 x10^6/uL (3.50-5.40) Hemoglobin 11.4 g/dL (12.0-15.5) Hematocrit 33.9 % (36.0-47.0) Mean Corpuscular Volume 88 fL (79-100) Mean Corpuscular Hemoglobin 30 pg (25-35) Mean Corpuscular Hemoglobin Concent 34 g/dL (31-37) Red Cell Distribution Width 16.4 % (11.5-14.5) Platelet Count 418 x10^3/uL (140-400) Sodium Level 138 mmol/L (136-145) Potassium Level 3.6 mmol/L (3.5-5.1) Chloride Level 100 mmol/L (98-107) Carbon Dioxide Level 30 mmol/L (21-32) Anion Gap 8 (6-14) Blood Urea Nitrogen 12 mg/dL (7-20) Creatinine 0.4 mg/dL (0.6-1.0) Estimated GFR (Cockcroft-Gault) 156.0 BUN/Creatinine Ratio 30 (6-20) Glucose Level 201 mg/dL (70-99) Calcium Level 9.1 mg/dL (8.5-10.1) Phosphorus Level 2.9 mg/dL (2.6-4.7) Magnesium Level 2.0 mg/dL (1.8-2.4) Total Bilirubin 0.3 mg/dL (0.2-1.0) Aspartate Amino Transf (AST/SGOT) 9 U/L (15-37) Alanine Aminotransferase (ALT/SGPT) 10 U/L (14-59) Alkaline Phosphatase 110 U/L (46-116) Total Protein 6.7 g/dL (6.4-8.2) Albumin 2.7 g/dL (3.4-5.0) Albumin/Globulin Ratio 0.7 (1.0-1.7) Medications Current Medications Sodium Chloride 1,000 ml @ 1,000 mls/hr 1X ONCE IV Last administered on 11/11/18at 12:23; Start 11/11/18 at 11:30; Stop 11/11/18 at 12:29; Status DC Ondansetron HCl (Zofran) 4 mg PRN Q8HRS PRN IV NAUSEA/VOMITING; Start 11/11/18 at 13:00; Stop 11/12/18 at 12:59; Status DC Acetaminophen/ Hydrocodone Bitart (Lortab 7.5-325/ 15ml Oral Solution) 15 ml 1X ONCE PO Last administered on 11/11/18at 13:25; Start 11/11/18 at 13:15; Stop 11/11/18 at 13:16; Status DC Pantoprazole Sodium (PROTONIX VIAL for IV PUSH) 40 mg DAILYAC IVP Last administered on 11/14/18 07:13; Start 11/11/18 at 16:00 Albuterol Sulfate (Ventolin Neb Soln) 2.5 mg RTQID NEB Last administered on 11/14/18at 12:20; Start 11/11/18 at 20:00 Acetaminophen/ Hydrocodone Bitart (Lortab 7.5-325/ 15ml Oral Solution) 15 ml PRN Q6HRS PRN PO PAIN Last administered on 11/11/18at 20:26; Start 11/11/18 at 16:30 Albuterol Sulfate (Ventolin Neb Soln) 2.5 mg PRN Q4HRS PRN NEB SHORTNESS OF BREATH Last administered on 11/14/18at 09:25; Start 11/11/18 at 16:30 Amino Acids/ Glycerin/ Electrolytes 1,000 ml @ 80 mls/hr [id number] IV Last administered on 11/14/18at 13:26; Start 11/11/18 at 16:30 Insulin Human Lispro (HumaLOG) 0-5 UNITS TIDWMEALS SQ Last administered on 11/12/18at 08:22; Start 11/11/18 at 17:00 Dextrose (Dextrose 50%-Water Syringe) 12.5 gm PRN Q15MIN PRN IV SEE COMMENTS; Start 11/11/18 at 16:30 Fentanyl Citrate (Fentanyl 2ml Vial) 25 mcg PRN Q3HRS PRN IVP PAIN Last admi nistered on 11/14/18at 11:14; Start 11/12/18 at 06:45 Fentanyl (Duragesic 12mcg/ Hr Patch) 1 patch Q3DAYS TD Last administered on 11/12/18at 18:06; Start 11/12/18 at 12:00; Stop 11/14/18 at 01:46; Status DC Magnesium Hydroxide (Milk Of Magnesia) 2,400 mg PRN DAILY PRN PO CONSTIPATION; Start 11/13/18 at 16:45 Fentanyl (Duragesic 12mcg/ Hr Patch) 1 patch 1X ONCE TD Last administered on 11/14/18at 02:37; Start 11/14/18 at 02:00; Stop 11/14/18 at 02:01; Status DC Fentanyl (Duragesic 12mcg/ Hr Patch) 1 patch Q3DAYS TD ; Start 11/17/18 at 09:00 Info (Tpn Per Pharmacy) 1 each PRN DAILY PRN MC SEE COMMENTS; Start 11/14/18 at 14:30 Sodium Chloride 90 meq/Potassium Chloride 50 meq/ Potassium Phosphate 13.6 mmol/Magnesium Sulfate 10 meq/ Calcium Gluconate 10 meq/ Multivitamins 10 ml/Chromium/ Copper/Manganese/ Seleni/Zn 1 ml/ Total Parenteral Nutrition/Amino Acids/Dextrose/ Fat Emulsion Intravenous 1,512 ml @ 63 mls/hr TPN CONT IV ; Start 11/14/18 at 22:00; Stop 11/15/18 at 21:59 Lidocaine HCl (Buffered Lidocaine 1%) 3 ml STK-MED ONCE .ROUTE ; Start 11/14/18 at 14:17; Stop 11/14/18 at 14:18; Status DC Active Scripts Active Reported Albuterol Sulfate Neb Soln (Albuterol Sulfate) 2.5 Mg/3 Ml Vial.neb 1 Vial NEB QID Hydrocodone-Apap 7.5-325/15 Soln (Hydrocodone Bit/Acetaminophen) 15 Ml Solution 15 Ml PO PRN Q6HRS PRN Levemir (Insulin Detemir) 100 Unit/1 Ml Vial 5 Unit SQ HS Vitals/I & O Vital Sign - Last 24 Hours 11/13/18 11/13/18 11/13/18 11/13/18 17:38 18:28 19:00 19:10 Temp 98.2 98.2 Pulse 88 Resp 18 B/P (MAP) 117/53 (74) Pulse Ox 96 95 O2 Delivery Room Air Room Air Room Air Room Air O2 Flow Rate 11/13/18 11/13/18 11/13/18 11/13/18 20:11 21:57 22:32 23:00 Temp 98.2 98.2 Pulse 83 Resp 16 16 18 B/P (MAP) 118/50 (72) Pulse Ox 95 95 96 O2 Delivery Room Air Room Air Room Air Room Air 11/14/18 11/14/18 11/14/18 11/14/18 02:37 02:43 03:00 03:13 Temp 98.4 98.4 Pulse 81 Resp 18 18 16 B/P (MAP) 112/56 (74) Pulse Ox 96 96 94 96 O2 Delivery Room Air Room Air Room Air Room Air 11/14/18 11/14/18 11/14/18 11/14/18 07:00 07:10 07:18 07:42 Temp 98.6 98.6 Pulse 92 Resp 16 B/P (MAP) 130/63 (85) Pulse Ox 96 98 O2 Delivery Room Air Room Air Nasal Cannula Room Air O2 Flow Rate 2.0 11/14/18 11/14/18 11/14/18 11/14/18 09:26 11:00 11:14 12:02 Temp 98.3 98.3 Pulse 95 Resp 16 B/P (MAP) 111/47 (68) Pulse Ox 94 O2 Delivery Nasal Cannula Room Air Room Air Room Air O2 Flow Rate 2.0 11/14/18 12:20 Pulse Ox 98 O2 Delivery Nasal Cannula O2 Flow Rate 2.0 Intake and Output 11/13/18 11/13/18 11/14/18 15:00 23:00 07:00 Intake Total 1080 ml Balance 1080 ml Nutrition Consultation Dietary Evaluation: Recommendations by RD: PPN/TPN Comments: rec d/c ppn when TPN initated rec continue clear liquds, added ensure clear supplement tid Expected Outcomes/Goals: to meet > 75% est nutr needs via TPN and po intake Malnutrition Findings: Muscle Mass (Severe): Severe Depletion Food and Nutrition Intake (Sev: <50% est energy req 5days Weight Status: Underweight TERRI MARTINS MD Nov 14, 2018 15:38
[2018-11-14 19:00] VITALS: BP 128/58
[2018-11-14] MEDS ORDERED: TOTAL PARENTERAL NUTRITION 1,424.9987 ML, AMINO ACID 15% 60 GM, DEXTROSE 70 % IN WATER ... IV SCH ×10 (22:00)
[2018-11-14 23:00] VITALS: BP 118/53
[2018-11-15] MEDS: fentaNYL PF VIAL 100 MCG/2 ML VIAL IVP PRN ×7 (01:26→21:47)
[2018-11-15] MEDS: AMINO AC 3%/ELECTROLYTE/GLYCER 1,000 ML IV SCH ×2 (01:26→17:28)
[2018-11-15 03:00] VITALS: BP 128/59
[2018-11-15] MEDS: PANTOPRAZOLE IV PUSH 40 MG VIAL. IVP SCH (05:43)
[2018-11-15 07:00] VITALS: BP 110/50
[2018-11-15] MEDS: ALBUTEROL SULFATE 2.5 MG/3 ML NEBU. NEB SCH ×4 (07:14→20:30)
[2018-11-15 07:30] LABS: PROTHROMBIN TIME PATIENT 13.6 SEC (11.7-14.0)
[2018-11-15] MEDS: INSULIN LISPRO 300 UNITS/3 ML VIAL. SQ SCH ×3 (08:00→17:04)
--- NOTE | 2018-11-15 09:00 | PDOC ---
PROGRESS NOTES Subjective Subjective HPI -f/u of Non-small cell lung cancer ROS - has dysphagia Objective Objective Vital Signs Date Time Temp Pulse Resp B/P (MAP) Pulse Ox O2 Delivery O2 Flow Rate FiO2 11/15/18 07:56 Room Air 11/15/18 07:16 97 11/15/18 07:00 98.2 87 16 110/50 (70) 98.2 11/14/18 20:40 2.0 Intake and Output 11/15/18 06:59 Intake Total 180 ml Balance 180 ml Intake Oral 180 ml # Voids 4 Physical Exam Heart: Normal S1, Normal S2 General: Alert, Oriented X3 Lungs: Clear to auscultation Neuro: Normal speech Psych/Mental Status: Mental status NL Assessment Assessment Problems Medical Problems: (1) Abnormal weight loss Status: Chronic (2) Dysphagia Status: Acute (3) Esophageal dysfunction Status: Acute (4) Esophageal stricture Status: Acute (5) Malnutrition Status: Acute (6) Metastatic lung cancer (metastasis from lung to other site) Status: Acute IMPRESSION AND PLAN: 1. Non-small cell lung cancer involving the left upper lobe. PET scan on 07/28/2018 revealed a 2-cm spiculated nodule in the left upper lobe with contiguous hypermetabolic tissue within the mediastinum, involving both the right and left aspects of the upper mediastinum extending into the subcarinal lymph node suggesting confluent adenopathy. There is hypermetabolic right subclavian level nodule. Small peripheral 1 cm spiculated density abutting the pleura and the posterior lateral aspect of the right upper lobe and a small nodule in the left upper lobe are also noted. Clinically, this is concerning for stage 4 malignancy. She underwent right supraclavicular lymph node biopsy on 08/25/2018 and there was not enough tissue to check for biomarkers. She was referred to for further biomarker testing. She underwent radiation therapy to the central mediastinum and esophagus from 09/28/2018 through 10/12/[address] Baez. Plan immunotherapy or chemotherapy depending on the biomarker results and she has an appointment with Pulmonary Medicine at [facility] for possible biopsy. She was told that another CAT scan will be done prior to deciding on the biopsy and she prefers to get it here. Ordered CT chest. 2. Dysphagia, status post esophageal stent placement in 09/2018 and she completed palliative radiation therapy. However, she has persistent symptoms and hence Gastroenterology was consulted, who suggested considering feeding tube placement at [facility]. She d/w Dr Rubi and plan TPN for nutrition. Comment Review of Relevant I have reviewed the following items sky (where applicable) has been applied. Labs Laboratory Tests Test 11/13/18 11:30 11/13/18 17:17 11/13/18 21:17 11/14/18 07:16 Glucose (Fingerstick) 158 mg/dL (70-99) 144 mg/dL (70-99) 160 mg/dL (70-99) 167 mg/dL (70-99) Test 11/14/18 09:42 11/14/18 11:17 11/14/18 11:25 11/14/18 16:45 Glucose (Fingerstick) 181 mg/dL (70-99) 186 mg/dL (70-99) 176 mg/dL (70-99) White Blood Count 5.3 x10^3/uL (4.0-11.0) Red Blood Count 3.84 x10^6/uL (3.50-5.40) Hemoglobin 11.4 g/dL (12.0-15.5) Hematocrit 33.9 % (36.0-47.0) Mean Corpuscular Volume 88 fL (79-100) Mean Corpuscular Hemoglobin 30 pg (25-35) Mean Corpuscular Hemoglobin Concent 34 g/dL (31-37) Red Cell Distribution Width 16.4 % (11.5-14.5) Platelet Count 418 x10^3/uL (140-400) Sodium Level 138 mmol/L (136-145) Potassium Level 3.6 mmol/L (3.5-5.1) Chloride Level 100 mmol/L (98-107) Carbon Dioxide Level 30 mmol/L (21-32) Anion Gap 8 (6-14) Blood Urea Nitrogen 12 mg/dL (7-20) Creatinine 0.4 mg/dL (0.6-1.0) Estimated GFR (Cockcroft-Gault) 156.0 BUN/Creatinine Ratio 30 (6-20) Glucose Level 201 mg/dL (70-99) Calcium Level 9.1 mg/dL (8.5-10.1) Phosphorus Level 2.9 mg/dL (2.6-4.7) Magnesium Level 2.0 mg/dL (1.8-2.4) Total Bilirubin 0.3 mg/dL (0.2-1.0) Aspartate Amino Transf (AST/SGOT) 9 U/L (15-37) Alanine Aminotransferase (ALT/SGPT) 10 U/L (14-59) Alkaline Phosphatase 110 U/L (46-116) Total Protein 6.7 g/dL (6.4-8.2) Albumin 2.7 g/dL (3.4-5.0) Albumin/Globulin Ratio 0.7 (1.0-1.7) Test 11/14/18 20:58 11/15/18 05:35 11/15/18 07:34 Glucose (Fingerstick) 152 mg/dL (70-99) 169 mg/dL (70-99) Prothrombin Time 13.6 SEC (11.7-14.0) Prothromb Time International Ratio 1.1 (0.8-1.1) Activated Partial Thromboplast Time 34 SEC (24-38) Laboratory Tests Test 11/14/18 09:42 11/14/18 11:17 11/14/18 11:25 11/14/18 16:45 Glucose (Fingerstick) 181 mg/dL (70-99) 186 mg/dL (70-99) 176 mg/dL (70-99) White Blood Count 5.3 x10^3/uL (4.0-11.0) Red Blood Count 3.84 x10^6/uL (3.50-5.40) Hemoglobin 11.4 g/dL (12.0-15.5) Hematocrit 33.9 % (36.0-47.0) Mean Corpuscular Volume 88 fL (79-100) Mean Corpuscular Hemoglobin 30 pg (25-35) Mean Corpuscular Hemoglobin Concent 34 g/dL (31-37) Red Cell Distribution Width 16.4 % (11.5-14.5) Platelet Count 418 x10^3/uL (140-400) Sodium Level 138 mmol/L (136-145) Potassium Level 3.6 mmol/L (3.5-5.1) Chloride Level 100 mmol/L (98-107) Carbon Dioxide Level 30 mmol/L (21-32) Anion Gap 8 (6-14) Blood Urea Nitrogen 12 mg/dL (7-20) Creatinine 0.4 mg/dL (0.6-1.0) Estimated GFR (Cockcroft-Gault) 156.0 BUN/Creatinine Ratio 30 (6-20) Glucose Level 201 mg/dL (70-99) Calcium Level 9.1 mg/dL (8.5-10.1) Phosphorus Level 2.9 mg/dL (2.6-4.7) Magnesium Level 2.0 mg/dL (1.8-2.4) Total Bilirubin 0.3 mg/dL (0.2-1.0) Aspartate Amino Transf (AST/SGOT) 9 U/L (15-37) Alanine Aminotransferase (ALT/SGPT) 10 U/L (14-59) Alkaline Phosphatase 110 U/L (46-116) Total Protein 6.7 g/dL (6.4-8.2) Albumin 2.7 g/dL (3.4-5.0) Albumin/Globulin Ratio 0.7 (1.0-1.7) Test 11/14/18 20:58 11/15/18 05:35 11/15/18 07:34 Glucose (Fingerstick) 152 mg/dL (70-99) 169 mg/dL (70-99) Prothrombin Time 13.6 SEC (11.7-14.0) Prothromb Time International Ratio 1.1 (0.8-1.1) Activated Partial Thromboplast Time 34 SEC (24-38) Medications Current Medications Sodium Chloride 1,000 ml @ 1,000 mls/hr 1X ONCE IV Last administered on 11/11/18at 12:23; Start 11/11/18 at 11:30; Stop 11/11/18 at 12:29; Status DC Ondansetron HCl (Zofran) 4 mg PRN Q8HRS PRN IV NAUSEA/VOMITING; Start 11/11/18 at 13:00; Stop 11/12/18 at 12:59; Status DC Acetaminophen/ Hydrocodone Bitart (Lortab 7.5-325/ 15ml Oral Solution) 15 ml 1X ONCE PO Last administered on 11/11/18at 13:25; Start 11/11/18 at 13:15; Stop 11/11/18 at 13:16; Status DC Pantoprazole Sodium (PROTONIX VIAL for IV PUSH) 40 mg DAILYAC IVP Last administered on 11/15/18 05:43; Start 11/11/18 at 16:00 Albuterol Sulfate (Ventolin Neb Soln) 2.5 mg RTQID NEB Last administered on 11/15/18 07:14; Start 11/11/18 at 20:00 Acetaminophen/ Hydrocodone Bitart (Lortab 7.5-325/ 15ml Oral Solution) 15 ml PRN Q6HRS PRN PO PAIN Last administered on 11/11/18 20:26; Start 11/11/18 at 16:30 Albuterol Sulfate (Ventolin Neb Soln) 2.5 mg PRN Q4HRS PRN NEB SHORTNESS OF BREATH Last administered on 11/14/18 09:25; Start 11/11/18 at 16:30 Amino Acids/ Glycerin/ Electrolytes 1,000 ml @ 80 mls/hr [id number] IV Last administered on 11/15/18 01:26; Start 11/11/18 at 16:30 Insulin Human Lispro (HumaLOG) 0-5 UNITS TIDWMEALS SQ Last administered on 11/12/18 08:22; Start 11/11/18 at 17:00 Dextrose (Dextrose 50%-Water Syringe) 12.5 gm PRN Q15MIN PRN IV SEE COMMENTS; Start 11/11/18 at 16:30 Fentanyl Citrate (Fentanyl 2ml Vial) 25 mcg PRN Q3HRS PRN IVP PAIN Last administered on 11/15/18 07:28; Start 11/12/18 at 06:45 Fentanyl (Duragesic 12mcg/ Hr Patch) 1 patch Q3DAYS TD Last administered on 11/12/18 18:06; Start 11/12/18 at 12:00; Stop 11/14/18 at 01:46; Status DC Magnesium Hydroxide (Milk Of Magnesia) 2,400 mg PRN DAILY PRN PO CONSTIPATION; Start 11/13/18 at 16:45 Fentanyl (Duragesic 12mcg/ Hr Patch) 1 patch 1X ONCE TD Last administered on 11/14/18 02:37; Start 11/14/18 at 02:00; Stop 11/14/18 at 02:01; Status DC Fentanyl (Duragesic 12mcg/ Hr Patch) 1 patch Q3DAYS TD ; Start 11/17/18 at 09:00 Info (Tpn Per Pharmacy) 1 each PRN DAILY PRN MC SEE COMMENTS; Start 11/14/18 at 14:30 Sodium Chloride 90 meq/Potassium Chloride 50 meq/ Potassium Phosphate 13.6 mmol/Magnesium Sulfate 10 meq/ Calcium Gluconate 10 meq/ Multivitamins 10 ml/Chromium/ Copper/Manganese/ Seleni/Zn 1 ml/ Total Parenteral Nutrition/Amino Acids/Dextrose/ Fat Emulsion Intravenous 1,512 ml @ 63 mls/hr TPN CONT IV ; Start 11/14/18 at 22:00; Stop 11/15/18 at 21:59; Status Cancel Lidocaine HCl (Buffered Lidocaine 1%) 3 ml STK-MED ONCE .ROUTE ; Start 11/14/18 at 14:17; Stop 11/14/18 at 14:18; Status DC Active Scripts Active Reported Albuterol Sulfate Neb Soln (Albuterol Sulfate) 2.5 Mg/3 Ml Vial.neb 1 Vial NEB QID Hydrocodone-Apap 7.5-325/15 Soln (Hydrocodone Bit/Acetaminophen) 15 Ml Solution 15 Ml PO PRN Q6HRS PRN Levemir (Insulin Detemir) 100 Unit/1 Ml Vial 5 Unit SQ HS Vitals/I & O Vital Sign - Last 24 Hours 11/14/18 11/14/18 11/14/18 11/14/18 09:26 11:00 11:14 12:02 Temp 98.3 98.3 Pulse 95 Resp 16 B/P (MAP) 111/47 (68) Pulse Ox 94 O2 Delivery Nasal Cannula Room Air Room Air Room Air O2 Flow Rate 2.0 11/14/18 11/14/18 11/14/18 11/14/18 12:20 15:00 15:44 15:55 Temp 97.6 97.6 Pulse 86 Resp 16 B/P (MAP) 121/59 (79) Pulse Ox 98 97 98 O2 Delivery Nasal Cannula Room Air Nasal Cannula Room Air O2 Flow Rate 2.0 2.0 11/14/18 11/14/18 11/14/18 11/14/18 19:00 20:00 20:10 20:27 Temp 98.1 98.1 Pulse 81 Resp 18 B/P (MAP) 128/58 (81) Pulse Ox 98 98 98 O2 Delivery Room Air Room Air Room Air Room Air O2 Flow Rate 2.0 11/14/18 11/14/18 11/15/18 11/15/18 20:40 23:00 01:26 01:56 Temp 98.3 98.3 Pulse 81 Resp 18 B/P (MAP) 118/53 (74) Pulse Ox 98 97 97 97 O2 Delivery Room Air Room Air Room Air Room Air O2 Flow Rate 2.0 11/15/18 11/15/18 11/15/18 11/15/18 03:00 04:27 04:57 07:00 Temp 98.0 98.2 98.0 98.2 Pulse 74 87 Resp 18 16 B/P (MAP) 128/59 (82) 110/50 (70) Pulse Ox 96 96 96 97 O2 Delivery Room Air Room Air Room Air Room Air 11/15/18 11/15/18 07:16 07:56 Pulse Ox 97 O2 Delivery Room Air Room Air Intake and Output 11/14/18 11/14/18 11/15/18 14:59 22:59 06:59 Intake Total 180 ml Balance 180 ml Nutrition Consultation Dietary Evaluation: Recommendations by RD: PPN/TPN Comments: rec d/c ppn when TPN initated rec continue clear liquds, added ensure clear supplement tid Expected Outcomes/Goals: to meet > 75% est nutr needs via TPN and po intake Malnutrition Findings: Muscle Mass (Severe): Severe Depletion Food and Nutrition Intake (Sev: <50% est energy req 5days Weight Status: Underweight TERRI MARTINS MD Nov 15, 2018 09:00
--- NOTE | 2018-11-15 09:07 | PDOC ---
Objective: Objective: D/w nurse - many questions about TPN, plans for central line placement today. D/w Monserrat/surgery. Vital Signs: Vital Signs Date Time Temp Pulse Resp B/P (MAP) Pulse Ox O2 Delivery O2 Flow Rate FiO2 11/15/18 07:56 Room Air 11/15/18 07:16 97 11/15/18 07:00 98.2 87 16 110/50 (70) 98.2 11/14/18 20:40 2.0 Labs: Laboratory Tests Test 11/14/18 09:42 11/14/18 11:17 11/14/18 11:25 11/14/18 16:45 Glucose (Fingerstick) 181 mg/dL 186 mg/dL 176 mg/dL White Blood Count 5.3 x10^3/uL Red Blood Count 3.84 x10^6/uL Hemoglobin 11.4 g/dL Hematocrit 33.9 % Mean Corpuscular Volume 88 fL Mean Corpuscular Hemoglobin 30 pg Mean Corpuscular Hemoglobin Concent 34 g/dL Red Cell Distribution Width 16.4 % Platelet Count 418 x10^3/uL Sodium Level 138 mmol/L Potassium Level 3.6 mmol/L Chloride Level 100 mmol/L Carbon Dioxide Level 30 mmol/L Anion Gap 8 Blood Urea Nitrogen 12 mg/dL Creatinine 0.4 mg/dL Estimated GFR (Cockcroft-Gault) 156.0 BUN/Creatinine Ratio 30 Glucose Level 201 mg/dL Calcium Level 9.1 mg/dL Phosphorus Level 2.9 mg/dL Magnesium Level 2.0 mg/dL Total Bilirubin 0.3 mg/dL Aspartate Amino Transf (AST/SGOT) 9 U/L Alanine Aminotransferase (ALT/SGPT) 10 U/L Alkaline Phosphatase 110 U/L Total Protein 6.7 g/dL Albumin 2.7 g/dL Albumin/Globulin Ratio 0.7 Test 11/14/18 20:58 11/15/18 05:35 11/15/18 07:34 Glucose (Fingerstick) 152 mg/dL 169 mg/dL Prothrombin Time 13.6 SEC Prothromb Time International Ratio 1.1 Activated Partial Thromboplast Time 34 SEC Imaging: Chest CT 11/15 pending PE: GEN: NAD - sitting up in bed, present NEURO/PSYCH: A & O 3 A/P: Metastatic lung cancer w/ mediastinal adenopathy and esophageal compression Esophageal stent in place, dysphagia/dysmotility -- Pt and were praying - asked me to come back later. Await line placement and chest imaging - will follow-up w/ Dr. Olsen this afternoon. CANDICE ZURITA Nov 15, 2018 09:07
[2018-11-15] MEDS ORDERED: IOHEXOL 300 MG/ML 100ML VIAL. IV ONE (09:15)
[2018-11-15] MEDS ORDERED: CONTRAST GIVEN. MC PRN (09:15)
--- NOTE | 2018-11-15 09:46 | NUR ---
lilibeth was in pain this am; she was rating her pain a "9" . she was medicated with fentanyl. she remains npo for a power picc. and lilibeth agree and consents signed. questions answered.
--- NOTE | 2018-11-15 10:12 | PDOC ---
SURGICAL PROGRESS NOTE Subjective Pt without new c/o Vital Signs Vital Signs Date Time Temp Pulse Resp B/P (MAP) Pulse Ox O2 Delivery O2 Flow Rate FiO2 11/15/18 08:00 97 Room Air 2.0 11/15/18 07:00 98.2 87 16 110/50 (70) 98.2 I&O Intake and Output 11/15/18 07:00 Intake Total 180 ml Balance 180 ml Intake Oral 180 ml # Voids 4 General: Alert, Oriented X3, Cooperative, No acute distress, Other (cachetic) Abdomen: Soft Labs Laboratory Tests Test 11/13/18 11:30 11/13/18 17:17 11/13/18 21:17 11/14/18 07:16 Glucose (Fingerstick) 158 mg/dL (70-99) 144 mg/dL (70-99) 160 mg/dL (70-99) 167 mg/dL (70-99) Test 11/14/18 09:42 11/14/18 11:17 11/14/18 11:25 11/14/18 16:45 Glucose (Fingerstick) 181 mg/dL (70-99) 186 mg/dL (70-99) 176 mg/dL (70-99) White Blood Count 5.3 x10^3/uL (4.0-11.0) Red Blood Count 3.84 x10^6/uL (3.50-5.40) Hemoglobin 11.4 g/dL (12.0-15.5) Hematocrit 33.9 % (36.0-47.0) Mean Corpuscular Volume 88 fL (79-100) Mean Corpuscular Hemoglobin 30 pg (25-35) Mean Corpuscular Hemoglobin Concent 34 g/dL (31-37) Red Cell Distribution Width 16.4 % (11.5-14.5) Platelet Count 418 x10^3/uL (140-400) Sodium Level 138 mmol/L (136-145) Potassium Level 3.6 mmol/L (3.5-5.1) Chloride Level 100 mmol/L (98-107) Carbon Dioxide Level 30 mmol/L (21-32) Anion Gap 8 (6-14) Blood Urea Nitrogen 12 mg/dL (7-20) Creatinine 0.4 mg/dL (0.6-1.0) Estimated GFR (Cockcroft-Gault) 156.0 BUN/Creatinine Ratio 30 (6-20) Glucose Level 201 mg/dL (70-99) Calcium Level 9.1 mg/dL (8.5-10.1) Phosphorus Level 2.9 mg/dL (2.6-4.7) Magnesium Level 2.0 mg/dL (1.8-2.4) Total Bilirubin 0.3 mg/dL (0.2-1.0) Aspartate Amino Transf (AST/SGOT) 9 U/L (15-37) Alanine Aminotransferase (ALT/SGPT) 10 U/L (14-59) Alkaline Phosphatase 110 U/L (46-116) Total Protein 6.7 g/dL (6.4-8.2) Albumin 2.7 g/dL (3.4-5.0) Albumin/Globulin Ratio 0.7 (1.0-1.7) Test 11/14/18 20:58 11/15/18 05:35 11/15/18 07:34 Glucose (Fingerstick) 152 mg/dL (70-99) 169 mg/dL (70-99) Prothrombin Time 13.6 SEC (11.7-14.0) Prothromb Time International Ratio 1.1 (0.8-1.1) Activated Partial Thromboplast Time 34 SEC (24-38) Laboratory Tests Test 11/14/18 11:17 11/14/18 11:25 11/14/18 16:45 11/14/18 20:58 Glucose (Fingerstick) 186 mg/dL (70-99) 176 mg/dL (70-99) 152 mg/dL (70-99) White Blood Count 5.3 x10^3/uL (4.0-11.0) Red Blood Count 3.84 x10^6/uL (3.50-5.40) Hemoglobin 11.4 g/dL (12.0-15.5) Hematocrit 33.9 % (36.0-47.0) Mean Corpuscular Volume 88 fL (79-100) Mean Corpuscular Hemoglobin 30 pg (25-35) Mean Corpuscular Hemoglobin Concent 34 g/dL (31-37) Red Cell Distribution Width 16.4 % (11.5-14.5) Platelet Count 418 x10^3/uL (140-400) Sodium Level 138 mmol/L (136-145) Potassium Level 3.6 mmol/L (3.5-5.1) Chloride Level 100 mmol/L (98-107) Carbon Dioxide Level 30 mmol/L (21-32) Anion Gap 8 (6-14) Blood Urea Nitrogen 12 mg/dL (7-20) Creatinine 0.4 mg/dL (0.6-1.0) Estimated GFR (Cockcroft-Gault) 156.0 BUN/Creatinine Ratio 30 (6-20) Glucose Level 201 mg/dL (70-99) Calcium Level 9.1 mg/dL (8.5-10.1) Phosphorus Level 2.9 mg/dL (2.6-4.7) Magnesium Level 2.0 mg/dL (1.8-2.4) Total Bilirubin 0.3 mg/dL (0.2-1.0) Aspartate Amino Transf (AST/SGOT) 9 U/L (15-37) Alanine Aminotransferase (ALT/SGPT) 10 U/L (14-59) Alkaline Phosphatase 110 U/L (46-116) Total Protein 6.7 g/dL (6.4-8.2) Albumin 2.7 g/dL (3.4-5.0) Albumin/Globulin Ratio 0.7 (1.0-1.7) Test 11/15/18 05:35 11/15/18 07:34 Prothrombin Time 13.6 SEC (11.7-14.0) Prothromb Time International Ratio 1.1 (0.8-1.1) Activated Partial Thromboplast Time 34 SEC (24-38) Glucose (Fingerstick) 169 mg/dL (70-99) Problem List Problems Medical Problems: (1) Abnormal weight loss Status: Chronic (2) Dysphagia Status: Acute (3) Esophageal dysfunction Status: Acute (4) Esophageal stricture Status: Acute (5) Malnutrition Status: Acute (6) Metastatic lung cancer (metastasis from lung to other site) Status: Acute Assessment/Plan severe malnutrition, disease related poor surgical candidate agree with central line placement (pt too small for PICC) d/w oncology and primary d/w pt and pt's regarding senior care TPN overall prognosis MARYELLEN Stevens MD Nov 15, 2018 10:12
[2018-11-15 11:00] VITALS: BP 141/44
[2018-11-15] MEDS ORDERED: LIDOCAINE WITH 8.4% SOD BICARB 3 ML DISP.SYRIN. ONE ×2 (11:16→12:02)
[2018-11-15] MEDS ORDERED: HEPARIN PF 500 UNIT/5 ML DISP.SYRIN. ONE (11:16)
[2018-11-15] MEDS ORDERED: fentaNYL PF VIAL 100 MCG/2 ML VIAL ONE (11:19)
[2018-11-15] MEDS ORDERED: HEPARIN PF 500 UNIT/5 ML DISP.SYRIN. IVP ONE (11:30)
[2018-11-15] MEDS ORDERED: LIDOCAINE WITH 8.4% SOD BICARB 3 ML DISP.SYRIN. IJ ONE (11:30)
[2018-11-15] MEDS ORDERED: fentaNYL PF VIAL 100 MCG/2 ML VIAL IV ONE (11:30)
--- NOTE | 2018-11-15 12:11 | PN ---
DATE: 11/15/2018 SUBJECTIVE: The patient is resting, slightly propped up in bed, in no apparent respiratory distress, awake and alert. Apparently, she and her are in agreement about placement of a PICC line and starting on TPN. OBJECTIVE: GENERAL: On examining her, she looked pale, cachectic, but no jaundice, cyanosis or thyromegaly. No jugular venous distention. No limb edema. VITAL SIGNS: Her heart rate was 87, blood pressure was 110/50, temperature was 98.2, respiratory rate was 16, and oxygen saturation was 97% on 2 liters of oxygen. HEAD, EYES, EARS, NOSE AND THROAT: Showed normocephalic, atraumatic. NECK: Supple. HEART: Showed normal first and second heart sounds. No gallop or murmur. CHEST: Shows central trachea, equally reduced expansion, air entry clear to auscultation. No crepitation or rhonchi. ABDOMEN: Scaphoid, soft, nontender. NEUROLOGIC: She is awake, alert, responding appropriately. All cranial nerves are intact. She moves extremities without difficulty. She ambulates without assistance or assistive devices. Her intake over the last 24 hours was 1080 and no output was recorded. LABORATORY DATA: Her lab work this morning showed white cell count 5300, hemoglobin 11, hematocrit 33, MCV 88, and platelet count of 118,000. Her serum sodium was 138, potassium 3.6, chloride 100, bicarbonate 30, anion gap of 8, BUN 12, creatinine 0.4, estimated GFR was 156 mL per minute. Her glucose was 101, calcium was 9.1, phosphorus 2.9, magnesium was 2. Total bilirubin, AST, ALT, alkaline phosphatase were normal. Total protein was 6.7, albumin was 2.7. ASSESSMENT: 1. Severe cachexia with body mass index only 13.6 kilograms square meter 2. Dysphagia secondary to esophageal stricture status post esophageal stent placement. 3. Metastatic lung cancer of a non-small cell carcinoma involving her left upper lobe. A PET scan on 07/28/2018 revealed a 2 cm spiculated nodule in the left upper lobe with contiguous hypermetabolic tissue within the mediastinum involving both right and left aspects of the upper mediastinum extending into the subcarinal subclavian lymph nodes suggesting confluent adenopathy. There is also hypermetabolic right subclavian level nodule. She has basically stage 4 malignancy. She did undergo radiation treatment for central mediastinal esophagus from 09/28/2018 to 10/12/2018, by Dr. Baez. The patient is basically unable to eat or drink and she will need TPN for rest of her life given that she is not a candidate for any gastrostomy or jejunostomy tube as per evaluation by the roofing tile sorter and the general surgeon, Dr. Rubi. PLAN: To proceed with placement of PEG tube, PICC line as well as started TPN with the plan for immunotherapy and chemotherapy depending on the biomarker results. She does have an appointment with Pulmonary Medicine at [facility] for possible biopsy. ARIANA WADSWORTH MD DR: MAXIMILIANO/karolina JOB#: [id number] / [id number]
[2018-11-15] MEDS: TPN PER PHARMACY MC PRN ×2 (14:32→14:43)
--- NOTE | 2018-11-15 14:45 | NUR ---
Pharmacy TPN Dosing Note S: ANITA JENNINGS is a 73 year old F Currently receiving Central Continuous TPN started 11/15/18 B:Pertinent PMH: Esophageal stricture r/t malignancy Height: 5 feet, 0 inches Weight: 31.416949 kg Current diet: CLD LABS: Sodium: 138 Potassium: 3.6 Chloride: 100 Calcium: 9.1 Corrected Calcium: 10.14 Magnesium: 2 CO2: 30 SCr: 0.4 Glucose: 146-176 Albumin: 2.7 AST: 9 ALT: 10 TPN FORMULA: TPN TYPE: Central Continuous AMINO ACIDS: 45 gm DEXTROSE: 160 gm LIPIDS: 20 gm SODIUM CHLORIDE: 90 mEq SODIUM ACETATE: mEq SODIUM PHOSPHATE: mmol POTASSIUM CHLORIDE: 50 mEq POTASSIUM ACETATE: mEq POTASSIUM PHOSPHATE: 13.6 mmol MAGNESIUM: 10 mEq CALCIUM: 10 mEq INSULIN: units MULTIPLE VITAMIN: 10 ml TRACE ELEMENTS: MTE5 1ML ml(s) TPN PLAN: Pt has been on Procalamine; will dc this starting tonight. Macros per discussion with fish drier: AA 45g, dextrose 160g, lipid 20g. Standard lytes with labs, including trig, in AM. R: Begin TPN ABOVE. Will monitor electrolytes, glucose, and tolerance to TPN. BEATRIS BUSH [facility], 11/15/18 [id number]
[2018-11-15 15:00] VITALS: BP 135/62
--- NOTE | 2018-11-15 15:29 | NUR ---
SS following up with discharge planning. sales planner, Andreea Rees, phoned and faxed clinical and TPN notes to [facility], ; fax [phone]. SS will need script for TPN formula prior to discharge. SS will continue to follow for discharge planning.
--- NOTE | 2018-11-15 15:58 | RAD ---
Procedure: Ultrasound and fluoroscopically guided placement of a tunneled central venous catheter (powerline). 11/15/2018 1:54 PM Clinical Indication: Long-term central venous access for TPN Fluoroscopy time: 0.4 minutes Dose area product: 1 Gycm2 Consent: The procedure was explained in its entirety to the patient or the patients designated videotape sales representative by a member of the treatment team, including a discussion of the risks, benefits and commonly accepted alternatives to the procedure, as well as the expected consequences of no therapy whatsoever. Discussion of the risks included, but was not limited to, those that are most frequent and those that are rare but possibly severe or life-threatening, as well as the possibility of unforeseen complications. Sterility: All elements of maximal sterile barrier technique including the use of a cap, mask, sterile gown, sterile gloves, large sterile sheet, appropriate hand hygiene, and 2% chlorhexidine for cutaneous antisepsis (or acceptable alternative antiseptic per current guidelines) were followed for this procedure. Technique and Findings: Following informed consent, the patient was prepped and draped in the usual sterile fashion. Ultrasound interrogation of the right neck revealed patency and compressibility of the left internal jugular vein. A 21-gauge micropuncture was then used to gain access to this vein under ultrasound guidance. A hard copy ultrasound image was recorded. The needle was exchanged over a wire for a sheath. A small incision was made several centimeters inferior to the left clavicle. A power line was trimmed to length, advanced from the small skin incision to the venotomy site, and then advanced through a peel-away sheath to the level of the cavoatrial junction. Catheter was found to flush and aspirate normally. Catheter was secured in place with 2-0 Prolene suture and a sterile dressing was applied. Catheter was packed with heparin per protocol. The neck dermatotomy was closed with Dermabond. No immediate complications were identified. Impression: Successful ultrasound and fluoroscopically guided placement of a left internal jugular tunneled central venous catheter
--- NOTE | 2018-11-15 16:15 | PDOC ---
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 She had severe dysphagia. Esophageal stent placement with no improvement followed by 30 gy of palliative mediastinal radiation here 10/2018. She continues to have ongoing dysphagia with no improvement. PEG tube placement too risky due to stent placement. Not an operative candidate now for G tube placement due to severely compromised nutritional status. Too thin for SQ central port placement as she has no SQ fat over chest wall. Agree with current plan to have tunnelled PICC line placed for TPN then readdress operative G tube placement once she has some nutritional recovery and can withstand operative tube placement. General discussion with patient and . SAMANTA MORILLO MD Nov 15, 2018 16:15
[2018-11-15] MEDS ORDERED: SIMETHICONE 80 MG TAB.CHEW PO PRN (16:45)
--- NOTE | 2018-11-15 16:58 | RAD ---
PQRS Compliance Statement: One or more of the following individualized dose reduction techniques were utilized for this examination: 1. Automated exposure control 2. Adjustment of the mA and/or kV according to patient size 3. Use of iterative reconstruction technique CT CHEST W/CONTRAST 11/15/2018 8:57 AM Indication: Lung cancer; restaging Comparison: CT chest 09/28/2018 TECHNIQUE: Multiple axial CT images of the chest were obtained after the intravenous administration of 75 cc Omnipaque 300. Coronal and sagittal reformats are provided. FINDINGS: Primary mass measures 1.6 x 1.2 cm in the medial left upper lobe, previously measuring 2.2 x 1.3 cm when measured in similar dimensions. Stable subpleural nodular opacity in the right upper lobe posteriorly measuring 0.9 x 0.7 cm (series 2, image 12). No new or enlarging solid noncalcified pulmonary nodules. There is mild centrilobular pulmonary emphysema. Patchy groundglass changes are noted in the right middle lobe and lateral basal segment right lower lobe. Findings may represent an infectious/inflammatory pneumonitis. Attention on follow-up exams is recommended. Ill-defined soft tissue within the AP window has decreased. No new or enlarging thoracic lymph nodes. Right hilar lymph node is stable measuring 5 mm (series 2, image 33). Esophageal stent is visualized. Debris. Mild circumferential esophageal wall thickening may reflect esophagitis. Visualized portions of the upper abdomen appear stable. No suspicious adrenal nodularity. No suspicious osseous abnormality. Cardiac structures appear stable. IMPRESSION: Decrease in size of primary left upper lobe mass previously measuring 2.2 x 1.3 cm and currently measuring 1.6 x 1.2 cm. No new or enlarging thoracic lymphadenopathy. Stable subpleural nodular opacity in the right upper lobe measuring 0.9 x 0.7 cm. Similar positioning of thoracic esophageal stent with debris noted. There is circumferential wall thickening involving the distal esophagus which may reflect esophagitis. Electronically signed by: Cecily John MD (11/15/2018 4:54 PM) [facility]
[2018-11-15 19:15] VITALS: BP_SYST 164; BP_SYST 92; BP_DIAS 48; BP_DIAS 96
[2018-11-15] MEDS ORDERED: AMINO ACID IV SCH ×10 (22:00)
[2018-11-15] MEDS ORDERED: [UNRECOGNIZED DRUG - OTHER] IV SCH ×10 (22:00)
[2018-11-15] MEDS ORDERED: TOTAL PARENTERAL NUTRITION IV SCH ×10 (22:00)
[2018-11-15] MEDS ORDERED: DEXTROSE 70% IV SCH ×10 (22:00)
[2018-11-15 23:31] VITALS: BP 114/55
[2018-11-16] MEDS: fentaNYL PF VIAL 100 MCG/2 ML VIAL IVP PRN ×7 (01:07→22:42)
[2018-11-16 03:00] VITALS: BP 107/40
[2018-11-16 05:53] LABS: CALCIUM 8.8 mg/dL (8.5-10.1); CREATININE 0.4 mg/dL (0.6-1.0); MAGNESIUM 2.2 mg/dL (1.8-2.4); PHOSPHORUS 3.1 mg/dL (2.6-4.7); POTASSIUM 4.3 mmol/L (3.5-5.1)
[2018-11-16] MEDS: PANTOPRAZOLE IV PUSH 40 MG VIAL. IVP SCH (06:00)
[2018-11-16 07:00] VITALS: BP 122/69
[2018-11-16] MEDS: ALBUTEROL SULFATE 2.5 MG/3 ML NEBU. NEB SCH ×4 (07:38→20:00)
[2018-11-16] MEDS: INSULIN LISPRO 300 UNITS/3 ML VIAL. SQ SCH ×3 (08:00→17:00)
[2018-11-16] MEDS ORDERED: MORPHINE SULFATE 20 MG/ML CONC SOLUTION. SL PRN (09:15)
[2018-11-16] MEDS ORDERED: ONDA4TAB7 PO (09:17)
--- NOTE | 2018-11-16 09:22 | SNU/HH DC ---
DISCHARGE WITH HOME HEALTH DISCHARGE INFORMATION: Discharge Date: Nov 16, 2018 Final Diagnosis: Problems Medical Problems: (1) Abnormal weight loss Status: Chronic (2) Dysphagia Status: Acute (3) Esophageal dysfunction Status: Acute (4) Esophageal stricture Status: Acute (5) Malnutrition Status: Acute (6) Metastatic lung cancer (metastasis from lung to other site) Status: Acute Condition on Discharge: Stable CODE STATUS: Code Status: Full HOME HEALTH: Face to Face: I certify this patient is under my care and that I, or a nurse practitioner or physician's travel assistant working with me, had a face to face encounter that meets the physician face to face encounter requirements with this patient on 11/16/18 Fpc For: Admin/Educate Injections RN For Eval/Treatment: Yes Physical Therapy For: Evalulation/Treatment Occupational Therapy For: Evaluation/Treatment Pt Meets Homebound Status: Extreme weakness w/ amb. POST DISCHARGE ORDERS: Activity Instructions for Disc: Activity as tolerated Weight Bearing Status after Di: No restrictions DIET AFTER DISCHARGE: Wound/Incision Care: Keep wound/cast CDI CHECKS AFTER DISCHARGE: Checks after discharge: Check blood sugar, ac/hs CERTIFICATION STATEMENT: Certification Statement: Certification Statement: Based on the above finding, I certify that this patient is confined to the home and needs intermittent fpc care, physical therapy and/or speech therapy, or continues to need occupational therapy.~ This patient is under my care, and I have initiated the establishment of the plan of care.~ This patient will be followed by myself or a community physician who will periodically review the plan of care. Home Meds Reported Medications Albuterol Sulfate (ALBUTEROL SULFATE NEB SOLN) 2.5 Mg/3 Ml Vial.neb, 1 VIAL NEB QID for copd, #50 VIAL 11/11/18 Hydrocodone Bit/Acetaminophen (HYDROCODONE-APAP 7.5-325/15 SOLN ) 15 Ml Solution, 15 ML PO PRN Q6HRS PRN for PAIN 09/29/18 Insulin Detemir (LEVEMIR) 100 Unit/1 Ml Vial, 5 UNIT SQ HS for Diabetes, VIAL 08/25/18 ARIANA WADSWORTH MD Nov 16, 2018 09:22
[2018-11-16 11:00] VITALS: BP 126/63
[2018-11-16] MEDS ORDERED: HYDROCORTISONE SOD SUCC/PF 100 MG/2 ML VIAL. IV ONE (11:30)
[2018-11-16] MEDS ORDERED: diphenhydrAMINE 50 MG/ML VIAL IVP PRN (11:30)
--- NOTE | 2018-11-16 12:49 | PDOC ---
Subjective: Subjective: Had planned to DC but had a new pain and new cough after taking Roxanol. says he hoped the cough w/ eating would would stop after TPN was started but it hasn't. Objective: Vital Signs: Vital Signs Date Time Temp Pulse Resp B/P (MAP) Pulse Ox O2 Delivery O2 Flow Rate FiO2 11/16/18 11:48 Room Air 11/16/18 11:00 98.4 84 14 126/63 (84) 100 98.4 11/16/18 10:21 2.0 Labs: Laboratory Tests Test 11/15/18 16:55 11/15/18 21:05 11/16/18 03:59 11/16/18 07:35 Glucose (Fingerstick) 149 mg/dL 160 mg/dL 218 mg/dL Sodium Level 139 mmol/L Potassium Level 4.3 mmol/L Chloride Level 102 mmol/L Carbon Dioxide Level 32 mmol/L Anion Gap 5 Blood Urea Nitrogen 13 mg/dL Creatinine 0.4 mg/dL Estimated GFR (Cockcroft-Gault) 156.0 Glucose Level 254 mg/dL Calcium Level 8.8 mg/dL Phosphorus Level 3.1 mg/dL Magnesium Level 2.2 mg/dL Triglycerides Level 109 mg/dL Test 11/16/18 11:43 Glucose (Fingerstick) 251 mg/dL Imaging: Chest CT 11/15 IMPRESSION: Decrease in size of primary left upper lobe mass previously measuring 2.2 x 1.3 cm and currently measuring 1.6 x 1.2 cm. No new or enlarging thoracic lymphadenopathy. Stable subpleural nodular opacity in the right upper lobe measuring 0.9 x 0.7 cm. Similar positioning of thoracic esophageal stent with debris noted. There is circumferential wall thickening involving the distal esophagus which may reflect esophagitis. PE: GEN: NAD - eating jello LUNGS: coughing NEURO/PSYCH: A & O 3 A/P: Metastatic lung cancer w/ mediastinal adenopathy and esophageal compression Esophageal stent in place, dysphagia/dysmotility - on PPI and Gas-X S/p LIJ tunneled central cath placement -- DC held. TPN started. ?IR at [facility] eventually for feeding tube CANDICE ZURITA Nov 16, 2018 12:49
[2018-11-16] MEDS: TPN PER PHARMACY MC PRN (14:03)
--- NOTE | 2018-11-16 14:05 | NUR ---
Pharmacy TPN Dosing Note S: ANITA JENNINGS is a 73 year old F Currently receiving Central Continuous TPN started 11/15/18 B:Pertinent PMH: Esophageal stricture r/t malignancy Height: 5 feet, 0 inches Weight: 30.846372 kg Current diet: CLD LABS: Sodium: 139 Potassium: 4.3 Chloride: 102 Calcium: 8.8 Corrected Calcium: 9.84 Magnesium: 2.2 CO2: 32 SCr: 0.4 Glucose: 218-254 Albumin: 2.7 AST: 9 ALT: 10 TPN FORMULA: TPN TYPE: Central Continuous AMINO ACIDS: 45 gm DEXTROSE: 160 gm LIPIDS: 20 gm SODIUM CHLORIDE: 90 mEq SODIUM ACETATE: mEq SODIUM PHOSPHATE: mmol POTASSIUM CHLORIDE: 50 mEq POTASSIUM ACETATE: mEq POTASSIUM PHOSPHATE: 13.6 mmol MAGNESIUM: 10 mEq CALCIUM: 10 mEq INSULIN: units MULTIPLE VITAMIN: 10 ml TRACE ELEMENTS: MTE5 1ML ml(s) TPN PLAN: Lytes and trig WNL this AM; continue same formula. BG all out of range since TPN started. Pt has SSI available. Pt may not be the best candidate for insulin in TPN since plan is to DC home with home health SARITHA on lifetime TPN. Will attempt to get higher intensity SSI or low dose basal insulin from primary care physician. R: Continue TPN ABOVE. Will monitor electrolytes, glucose, and tolerance to TPN. BEATRIS BUSH [facility], 11/16/18 [id number]
--- NOTE | 2018-11-16 14:16 | NUR ---
SS following for discharge planning. SS phoned and faxed script [facility] TPN to [facility], ; fax [phone]. SS awaiting for return call from Srini and will proceed accordingly.
[2018-11-16 15:00] VITALS: BP 153/82
--- NOTE | 2018-11-16 15:19 | PDOC ---
SURGICAL PROGRESS NOTE Subjective Pt without new c/o, now with picc and TPN Vital Signs Vital Signs Date Time Temp Pulse Resp B/P (MAP) Pulse Ox O2 Delivery O2 Flow Rate FiO2 11/16/18 15:07 100 Room Air 2.0 11/16/18 11:00 98.4 84 14 126/63 (84) 98.4 I&O Intake and Output 11/16/18 06:59 Intake Total 515 ml Balance 515 ml Intake Oral 515 ml # Voids 4 General: Alert, Oriented X3, Cooperative, No acute distress, Other (thin) Abdomen: Soft, No tenderness Labs Laboratory Tests Test 11/14/18 16:45 11/14/18 20:58 11/15/18 05:35 11/15/18 07:34 Glucose (Fingerstick) 176 mg/dL (70-99) 152 mg/dL (70-99) 169 mg/dL (70-99) Prothrombin Time 13.6 SEC (11.7-14.0) Prothromb Time International Ratio 1.1 (0.8-1.1) Activated Partial Thromboplast Time 34 SEC (24-38) Test 11/15/18 11:09 11/15/18 16:55 11/15/18 21:05 11/16/18 03:59 Glucose (Fingerstick) 146 mg/dL (70-99) 149 mg/dL (70-99) 160 mg/dL (70-99) Sodium Level 139 mmol/L (136-145) Potassium Level 4.3 mmol/L (3.5-5.1) Chloride Level 102 mmol/L (98-107) Carbon Dioxide Level 32 mmol/L (21-32) Anion Gap 5 (6-14) Blood Urea Nitrogen 13 mg/dL (7-20) Creatinine 0.4 mg/dL (0.6-1.0) Estimated GFR (Cockcroft-Gault) 156.0 Glucose Level 254 mg/dL (70-99) Calcium Level 8.8 mg/dL (8.5-10.1) Phosphorus Level 3.1 mg/dL (2.6-4.7) Magnesium Level 2.2 mg/dL (1.8-2.4) Triglycerides Level 109 mg/dL (0-150) Test 11/16/18 07:35 11/16/18 11:43 Glucose (Fingerstick) 218 mg/dL (70-99) 251 mg/dL (70-99) Laboratory Tests Test 11/15/18 16:55 11/15/18 21:05 11/16/18 03:59 11/16/18 07:35 Glucose (Fingerstick) 149 mg/dL (70-99) 160 mg/dL (70-99) 218 mg/dL (70-99) Sodium Level 139 mmol/L (136-145) Potassium Level 4.3 mmol/L (3.5-5.1) Chloride Level 102 mmol/L (98-107) Carbon Dioxide Level 32 mmol/L (21-32) Anion Gap 5 (6-14) Blood Urea Nitrogen 13 mg/dL (7-20) Creatinine 0.4 mg/dL (0.6-1.0) Estimated GFR (Cockcroft-Gault) 156.0 Glucose Level 254 mg/dL (70-99) Calcium Level 8.8 mg/dL (8.5-10.1) Phosphorus Level 3.1 mg/dL (2.6-4.7) Magnesium Level 2.2 mg/dL (1.8-2.4) Triglycerides Level 109 mg/dL (0-150) Test 11/16/18 11:43 Glucose (Fingerstick) 251 mg/dL (70-99) Problem List Problems Medical Problems: (1) Abnormal weight loss Status: Chronic (2) Dysphagia Status: Acute (3) Esophageal dysfunction Status: Acute (4) Esophageal stricture Status: Acute (5) Malnutrition Status: Acute (6) Metastatic lung cancer (metastasis from lung to other site) Status: Acute Assessment/Plan malnutrition appreciate consultants d/w pt and pt's supportive pending some improvement in nutrition status, would be happy to consider laparoscopic versus open G-tube versus J-tube MARYELLEN CHANDRA MD Nov 16, 2018 15:19
[2018-11-16 19:00] VITALS: BP 142/79
[2018-11-16] MEDS: INSULIN GLARGINE SYRINGE. SQ SCH (21:40)
[2018-11-16] MEDS ORDERED: [UNRECOGNIZED DRUG - OTHER] IV SCH ×10 (22:00)
[2018-11-16] MEDS ORDERED: DEXTROSE 70% IV SCH ×10 (22:00)
[2018-11-16] MEDS ORDERED: AMINO ACID IV SCH ×10 (22:00)
[2018-11-16] MEDS ORDERED: TOTAL PARENTERAL NUTRITION IV SCH ×10 (22:00)
[2018-11-16 23:00] VITALS: BP 117/66
[2018-11-17] MEDS: fentaNYL PF VIAL 100 MCG/2 ML VIAL IVP PRN ×8 (01:45→23:43)
[2018-11-17 03:00] VITALS: BP 118/60
[2018-11-17] MEDS: PANTOPRAZOLE IV PUSH 40 MG VIAL. IVP SCH (04:45)
[2018-11-17 06:12] LABS: CALCIUM 9.2 mg/dL (8.5-10.1); CREATININE 0.4 mg/dL (0.6-1.0); MAGNESIUM 1.9 mg/dL (1.8-2.4); PHOSPHORUS 3.2 mg/dL (2.6-4.7); POTASSIUM 4.2 mmol/L (3.5-5.1)
[2018-11-17 07:00] VITALS: BP 102/54
[2018-11-17] MEDS: ALBUTEROL SULFATE 2.5 MG/3 ML NEBU. NEB SCH ×4 (07:36→19:58)
[2018-11-17] MEDS: INSULIN LISPRO 300 UNITS/3 ML VIAL. SQ SCH ×3 (08:00→17:24)
[2018-11-17] MEDS: fentaNYL 12MCG/HR PATCH 1 PATCH PATCH.TD72 TD SCH (08:20)
--- NOTE | 2018-11-17 08:21 | PDOC ---
CHAMP BELTRÁN MACHINE OPERATOR HAY STACKER 11/17/18 0821: SURGICAL PROGRESS NOTE Subjective stomach pains, improved with pain meds worried about home pain med--did not tolerate the roxanol Vital Signs Vital Signs Date Time Temp Pulse Resp B/P (MAP) Pulse Ox O2 Delivery O2 Flow Rate FiO2 11/17/18 07:37 98 Room Air 11/17/18 05:16 20 11/17/18 03:00 98.3 82 118/60 (79) 98.3 11/16/18 17:15 2.0 I&O Intake and Output 11/17/18 07:00 Intake Total 0 ml Balance 0 ml Intake Oral 0 ml # Voids 3 General: Alert, Cooperative Abdomen: Soft Labs Laboratory Tests Test 11/15/18 11:09 11/15/18 16:55 11/15/18 21:05 11/16/18 03:59 Glucose (Fingerstick) 146 mg/dL (70-99) 149 mg/dL (70-99) 160 mg/dL (70-99) Sodium Level 139 mmol/L (136-145) Potassium Level 4.3 mmol/L (3.5-5.1) Chloride Level 102 mmol/L (98-107) Carbon Dioxide Level 32 mmol/L (21-32) Anion Gap 5 (6-14) Blood Urea Nitrogen 13 mg/dL (7-20) Creatinine 0.4 mg/dL (0.6-1.0) Estimated GFR (Cockcroft-Gault) 156.0 Glucose Level 254 mg/dL (70-99) Calcium Level 8.8 mg/dL (8.5-10.1) Phosphorus Level 3.1 mg/dL (2.6-4.7) Magnesium Level 2.2 mg/dL (1.8-2.4) Triglycerides Level 109 mg/dL (0-150) Test 11/16/18 07:35 11/16/18 11:43 11/16/18 16:41 11/16/18 20:39 Glucose (Fingerstick) 218 mg/dL (70-99) 251 mg/dL (70-99) 203 mg/dL (70-99) 328 mg/dL (70-99) Test 11/16/18 22:38 11/17/18 02:45 11/17/18 05:45 11/17/18 07:17 Glucose (Fingerstick) 315 mg/dL (70-99) 283 mg/dL (70-99) 188 mg/dL (70-99) Sodium Level 142 mmol/L (136-145) Potassium Level 4.2 mmol/L (3.5-5.1) Chloride Level 104 mmol/L (98-107) Carbon Dioxide Level 32 mmol/L (21-32) Anion Gap 6 (6-14) Blood Urea Nitrogen 13 mg/dL (7-20) Creatinine 0.4 mg/dL (0.6-1.0) Estimated GFR (Cockcroft-Gault) 156.0 Glucose Level 191 mg/dL (70-99) Calcium Level 9.2 mg/dL (8.5-10.1) Phosphorus Level 3.2 mg/dL (2.6-4.7) Magnesium Level 1.9 mg/dL (1.8-2.4) Laboratory Tests Test 11/16/18 11:43 11/16/18 16:41 11/16/18 20:39 11/16/18 22:38 Glucose (Fingerstick) 251 mg/dL (70-99) 203 mg/dL (70-99) 328 mg/dL (70-99) 315 mg/dL (70-99) Test 11/17/18 02:45 11/17/18 05:45 11/17/18 07:17 Glucose (Fingerstick) 283 mg/dL (70-99) 188 mg/dL (70-99) Sodium Level 142 mmol/L (136-145) Potassium Level 4.2 mmol/L (3.5-5.1) Chloride Level 104 mmol/L (98-107) Carbon Dioxide Level 32 mmol/L (21-32) Anion Gap 6 (6-14) Blood Urea Nitrogen 13 mg/dL (7-20) Creatinine 0.4 mg/dL (0.6-1.0) Estimated GFR (Cockcroft-Gault) 156.0 Glucose Level 191 mg/dL (70-99) Calcium Level 9.2 mg/dL (8.5-10.1) Phosphorus Level 3.2 mg/dL (2.6-4.7) Magnesium Level 1.9 mg/dL (1.8-2.4) Problem List Problems Medical Problems: (1) Abnormal weight loss Status: Chronic (2) Dysphagia Status: Acute (3) Esophageal dysfunction Status: Acute (4) Esophageal stricture Status: Acute (5) Malnutrition Status: Acute (6) Metastatic lung cancer (metastasis from lung to other site) Status: Acute Assessment/Plan TPN defer pain meds to PCP MARYELLEN CHANDRA MD 11/17/18 0930: SURGICAL PROGRESS NOTE Assessment/Plan Pt seen and examined. Agree with Ms. Beltrán's note Pt working on appropriate pain control, maya TPN will sign off, but would entertain enteral access pending improvement in nutritional status. CHAMP BELTRÁN MACHINE OPERATOR HAY STACKER Nov 17, 2018 08:21 MARYELLEN CHANDRA MD Nov 17, 2018 09:30
--- NOTE | 2018-11-17 10:46 | PN ---
DATE: 11/17/2018 SUBJECTIVE: The patient is sitting slightly propped up in bed, in no apparent respiratory distress. She apparently reacted poorly to oral Roxanol. We will start her on 0.25 mL sublingually and the patient developed severe chest tightness and shortness of breath, although she is tolerating morphine intravenously. She is already on hydrocodone/APAP in the liquid form before and she has practically no fat for the fentanyl patch to be absorbed. When I saw her this morning, she looked well and was clearly in no apparent respiratory distress. No pallor, jaundice, cyanosis or thyromegaly. No jugular venous distention. No lower limb edema. PHYSICAL EXAMINATION: VITAL SIGNS: Her heart rate was 85, blood pressure was 102/54, temperature was 97.3, respiratory rate was 18 and oxygen saturation was 96%. HEAD, EYES, EARS, NOSE AND THROAT: Showed normocephalic, atraumatic. NECK: Supple. HEART: Showed normal first and second heart sounds. No gallop or murmur. CHEST: Clear to auscultation. No crepitation or rhonchi. ABDOMEN: Distended, soft, nontender. No guarding or rigidity. No organomegaly. All hernial orifice intact. Bowel sounds normal. NEUROLOGIC: She is awake, alert, responding appropriately. All cranial nerves intact. She moves extremities without difficulty. She ambulates without assistance or assistive devices. ASSESSMENT: Dysphagia with marked cachexia. Her body mass index was only 14.5. The patient has lost more than 17 pounds since April of this year. She used to weigh 89 pounds and now she is weighing only 72 pounds. Her intake extremely poor because of dysphagia, esophageal dysmotility and esophageal stricture to which she had a stent. She will need the total parenteral nutrition for more than 90 days. FINAL ASSESSMENT: 1. Severe cachexia with body mass index only 13.6 kilograms square meter. 2. Dysphagia secondary to esophageal stricture as well as esophageal dysmotility and dysfunction. 3. Metastatic lung cancer of non-small cell carcinoma involving the left upper lobe and mediastinum involving both right and left aspects of the upper mediastinum extending into the subcarinal subclavian lymph nodes, suggesting confluent adenopathy. She has also hypermetabolic right subclavian level nodule and she has basically stage 4 malignancy. She underwent radiation treatment for central mediastinal esophagus from 09/28/2018-10/12/[address] Baez and the patient has been unable to eat or drink. She will need TPN for at least more than 90 days. Unfortunately, she is not a candidate for any gastrostomy tube or jejunostomy tube and as stated cannot be done by both bullard machine operator and/or general surgeon. ARIANA WADSWORTH MD DR: MAXIMILIANO/karolina JOB#: [id number] / [id number]
[2018-11-17 11:00] VITALS: BP 142/79
--- NOTE | 2018-11-17 11:09 | PDOC ---
PROGRESS NOTES Subjective Subjective HPI - f/u of Stage IIIB Non-small cell lung cancer ROS - has dysphagia Objective Objective Vital Signs Date Time Temp Pulse Resp B/P (MAP) Pulse Ox O2 Delivery O2 Flow Rate FiO2 11/17/18 11:00 98.4 92 18 142/79 (100) 95 Room Air 98.4 11/16/18 17:15 2.0 Intake and Output 11/17/18 07:00 Intake Total 0 ml Balance 0 ml Intake Oral 0 ml # Voids 3 Physical Exam Heart: Normal S1, Normal S2 General: Alert, Oriented X3 Lungs: Clear to auscultation Neuro: Normal speech Psych/Mental Status: Mental status NL Assessment Assessment Problems Medical Problems: (1) Abnormal weight loss Status: Chronic (2) Dysphagia Status: Acute (3) Esophageal dysfunction Status: Acute (4) Esophageal stricture Status: Acute (5) Malnutrition Status: Acute (6) Metastatic lung cancer (metastasis from lung to other site) Status: Acute IMPRESSION AND PLAN: 1. Stage IIIB Non-small cell lung cancer involving the left upper lobe. PET scan on 07/28/2018 revealed a 2-cm spiculated nodule in the left upper lobe with contiguous hypermetabolic tissue within the mediastinum, involving both the right and left aspects of the upper mediastinum extending into the subcarinal lymph node suggesting confluent adenopathy. There is hypermetabolic right subclavian level nodule. Small peripheral 1 cm spiculated density abutting the pleura and the posterior lateral aspect of the right upper lobe and a small nodule in the left upper lobe are also noted (could be inflammatory). She underwent right supraclavicular lymph node biopsy on 08/25/2018 and there was not enough tissue to check for biomarkers. She was referred to for further biomarker testing. She underwent radiation therapy to the central mediastinum and esophagus from 09/28/2018 through 10/12/[address] Baez. Plan immunotherapy or chemotherapy depending on the biomarker results and she has an appointment with Pulmonary Medicine at [facility] for possible biopsy. She was told that another CAT scan will be done prior to deciding on the biopsy and she prefers to get it here. CT chest: 11/15/18: Decrease in size of primary left upper lobe mass previously measuring 2.2 x 1.3 cm and currently measuring 1.6 x 1.2 cm. No new or enlarging thoracic lymphadenopathy. Stable subpleural nodular opacity in the right upper lobe measuring 0.9 x 0.7 cm. Similar positioning of thoracic esophageal stent with debris noted. There is circumferential wall thickening involving the distal esophagus which may reflect esophagitis. Since there is no progression of the small RUL nodule, this could be old granulomatou disease, hence she likely has Stage IIIB lung cancer and I will plan for consolidation immunotherapy with Durvalumab as outpatient.. I d/w IR and CT does not reveal any new changes for a safe bx. 2. Dysphagia, status post esophageal stent placement in 09/2018 and she completed palliative radiation therapy. However, she has persistent symptoms and hence Gastroenterology was consulted, who suggested considering feeding tube placement at [facility]. She d/w Dr Rubi and started TPN for nutrition. s/p Successful ultrasound and fluoroscopically guided placement of a left internal jugular tunneled central venous catheter 11/15/18. Comment Review of Relevant I have reviewed the following items sky (where applicable) has been applied. Labs Laboratory Tests Test 11/15/18 11:09 11/15/18 16:55 11/15/18 21:05 11/16/18 03:59 Glucose (Fingerstick) 146 mg/dL (70-99) 149 mg/dL (70-99) 160 mg/dL (70-99) Sodium Level 139 mmol/L (136-145) Potassium Level 4.3 mmol/L (3.5-5.1) Chloride Level 102 mmol/L (98-107) Carbon Dioxide Level 32 mmol/L (21-32) Anion Gap 5 (6-14) Blood Urea Nitrogen 13 mg/dL (7-20) Creatinine 0.4 mg/dL (0.6-1.0) Estimated GFR (Cockcroft-Gault) 156.0 Glucose Level 254 mg/dL (70-99) Calcium Level 8.8 mg/dL (8.5-10.1) Phosphorus Level 3.1 mg/dL (2.6-4.7) Magnesium Level 2.2 mg/dL (1.8-2.4) Triglycerides Level 109 mg/dL (0-150) Test 11/16/18 07:35 11/16/18 11:43 11/16/18 16:41 11/16/18 20:39 Glucose (Fingerstick) 218 mg/dL (70-99) 251 mg/dL (70-99) 203 mg/dL (70-99) 328 mg/dL (70-99) Test 11/16/18 22:38 11/17/18 02:45 11/17/18 05:45 11/17/18 07:17 Glucose (Fingerstick) 315 mg/dL (70-99) 283 mg/dL (70-99) 188 mg/dL (70-99) Sodium Level 142 mmol/L (136-145) Potassium Level 4.2 mmol/L (3.5-5.1) Chloride Level 104 mmol/L (98-107) Carbon Dioxide Level 32 mmol/L (21-32) Anion Gap 6 (6-14) Blood Urea Nitrogen 13 mg/dL (7-20) Creatinine 0.4 mg/dL (0.6-1.0) Estimated GFR (Cockcroft-Gault) 156.0 Glucose Level 191 mg/dL (70-99) Calcium Level 9.2 mg/dL (8.5-10.1) Phosphorus Level 3.2 mg/dL (2.6-4.7) Magnesium Level 1.9 mg/dL (1.8-2.4) Laboratory Tests Test 11/16/18 11:43 11/16/18 16:41 11/16/18 20:39 11/16/18 22:38 Glucose (Fingerstick) 251 mg/dL (70-99) 203 mg/dL (70-99) 328 mg/dL (70-99) 315 mg/dL (70-99) Test 11/17/18 02:45 11/17/18 05:45 11/17/18 07:17 Glucose (Fingerstick) 283 mg/dL (70-99) 188 mg/dL (70-99) Sodium Level 142 mmol/L (136-145) Potassium Level 4.2 mmol/L (3.5-5.1) Chloride Level 104 mmol/L (98-107) Carbon Dioxide Level 32 mmol/L (21-32) Anion Gap 6 (6-14) Blood Urea Nitrogen 13 mg/dL (7-20) Creatinine 0.4 mg/dL (0.6-1.0) Estimated GFR (Cockcroft-Gault) 156.0 Glucose Level 191 mg/dL (70-99) Calcium Level 9.2 mg/dL (8.5-10.1) Phosphorus Level 3.2 mg/dL (2.6-4.7) Magnesium Level 1.9 mg/dL (1.8-2.4) Medications Current Medications Sodium Chloride 1,000 ml @ 1,000 mls/hr 1X ONCE IV Last administered on 11/11/18 12:23; Start 11/11/18 at 11:30; Stop 11/11/18 at 12:29; Status DC Ondansetron HCl (Zofran) 4 mg PRN Q8HRS PRN IV NAUSEA/VOMITING; Start 11/11/18 at 13:00; Stop 11/12/18 at 12:59; Status DC Acetaminophen/ Hydrocodone Bitart (Lortab 7.5-325/ 15ml Oral Solution) 15 ml 1X ONCE PO Last administered on 11/11/18 13:25; Start 11/11/18 at 13:15; Stop 11/11/18 at 13:16; Status DC Pantoprazole Sodium (PROTONIX VIAL for IV PUSH) 40 mg DAILYAC IVP Last administered on 11/17/18 04:45; Start 11/11/18 at 16:00 Albuterol Sulfate (Ventolin Neb Soln) 2.5 mg RTQID NEB Last administered on 11/17/18 07:36; Start 11/11/18 at 20:00 Acetaminophen/ Hydrocodone Bitart (Lortab 7.5-325/ 15ml Oral Solution) 15 ml PRN Q6HRS PRN PO PAIN Last administered on 11/11/18 20:26; Start 11/11/18 at 16:30 Albuterol Sulfate (Ventolin Neb Soln) 2.5 mg PRN Q4HRS PRN NEB SHORTNESS OF BREATH Last administered on 11/14/18 09:25; Start 11/11/18 at 16:30; Stop 11/15/18 at 21:59; Status DC Amino Acids/ Glycerin/ Electrolytes 1,000 ml @ 80 mls/hr [id number] IV Last administered on 11/15/18 17:28; Start 11/11/18 at 16:30; Stop 11/15/18 at 21:59; Status DC Insulin Human Lispro (HumaLOG) 0-5 UNITS TIDWMEALS SQ Last administered on 11/16/18 11:58; Start 11/11/18 at 17:00 Dextrose (Dextrose 50%-Water Syringe) 12.5 gm PRN Q15MIN PRN IV SEE COMMENTS; Start 11/11/18 at 16:30 Fentanyl Citrate (Fentanyl 2ml Vial) 25 mcg PRN Q3HRS PRN IVP PAIN Last administered on 11/17/18at 08:21; Start 11/12/18 at 06:45 Fentanyl (Duragesic 12mcg/ Hr Patch) 1 patch Q3DAYS TD Last administered on 11/12/18at 18:06; Start 11/12/18 at 12:00; Stop 11/14/18 at 01:46; Status DC Magnesium Hydroxide (Milk Of Magnesia) 2,400 mg PRN DAILY PRN PO CONSTIPATION; Start 11/13/18 at 16:45 Fentanyl (Duragesic 12mcg/ Hr Patch) 1 patch 1X ONCE TD Last administered on 11/14/18 02:37; Start 11/14/18 at 02:00; Stop 11/14/18 at 02:01; Status DC Fentanyl (Duragesic 12mcg/ Hr Patch) 1 patch Q3DAYS TD Last administered on 11/17/18at 08:20; Start 11/17/18 at 09:00 Info (Tpn Per Pharmacy) 1 each PRN DAILY PRN MC SEE COMMENTS Last administered on 11/16/18at 14:03; Start 11/14/18 at 14:30 Sodium Chloride 90 meq/Potassium Chloride 50 meq/ Potassium Phosphate 13.6 mmol/Magnesium Sulfate 10 meq/ Calcium Gluconate 10 meq/ Multivitamins 10 ml/Chromium/ Copper/Manganese/ Seleni/Zn 1 ml/ Total Parenteral Nutrition/Amino Acids/Dextrose/ Fat Emulsion Intravenous 1,512 ml @ 63 mls/hr TPN CONT IV ; Start 11/14/18 at 22:00; Stop 11/15/18 at 21:59; Status Cancel Lidocaine HCl (Buffered Lidocaine 1%) 3 ml STK-MED ONCE .ROUTE ; Start 11/14/18 at 14:17; Stop 11/14/18 at 14:18; Status DC Iohexol (Omnipaque 300 Mg/ml) 75 ml 1X ONCE IV Last administered on 11/15/18at 09:30; Start 11/15/18 at 09:15; Stop 11/15/18 at 09:16; Status DC Info (CONTRAST GIVEN -- Rx MONITORING) 1 each PRN DAILY PRN MC SEE COMMENTS; Start 11/15/18 at 09:15; Stop 11/17/18 at 09:14; Status DC Lidocaine HCl (Buffered Lidocaine 1%) 3 ml STK-MED ONCE .ROUTE ; Start 11/15/18 at 11:16; Stop 11/15/18 at 11:16; Status DC Heparin Sodium (Porcine) (Hep Lock Adult) 500 unit STK-MED ONCE .ROUTE ; Start 11/15/18 at 11:16; Stop 11/15/18 at 11:16; Status DC Lidocaine HCl (Buffered Lidocaine 1%) 3 ml 1X ONCE IJ Last administered on 11/15/18at 11:30; Start 11/15/18 at 11:30; Stop 11/15/18 at 11:31; Status DC Fentanyl Citrate (Fentanyl 2ml Vial) 100 mcg 1X ONCE IV Last administered on 11/15/18at 11:30; Start 11/15/18 at 11:30; Stop 11/15/18 at 11:31; Status DC Heparin Sodium (Porcine) (Hep Lock Adult) 500 unit 1X ONCE IVP Last administered on 11/15/18at 11:30; Start 11/15/18 at 11:30; Stop 11/15/18 at 11:31; Status DC Fentanyl Citrate (Fentanyl 2ml Vial) 100 mcg STK-MED ONCE .ROUTE ; Start 11/15/18 at 11:19; Stop 11/15/18 at 11:19; Status DC Lidocaine HCl (Buffered Lidocaine 1%) 3 ml STK-MED ONCE .ROUTE ; Start 11/15/18 at 12:02; Stop 11/15/18 at 12:02; Status DC Sodium Chloride 90 meq/Potassium Chloride 50 meq/ Potassium Phosphate 13.6 mmol/Magnesium Sulfate 10 meq/ Calcium Gluconate 10 meq/ Multivitamins 10 ml/Chromium/ Copper/Manganese/ Seleni/Zn 1 ml/ Total Parenteral Nutrition/Amino Acids/Dextrose/ Fat Emulsion Intravenous 1,008 ml @ 42 mls/hr TPN CONT IV Last administered on 11/15/18at 23:33; Start 11/15/18 at 22:00; Stop 11/16/18 at 21:59; Status DC Simethicone (Gas-X) 80 mg [id number] PRN PO GAS / BLOATING; Start 11/15/18 at 16:45 Morphine Sulfate (Roxanol Conc) 5 mg PRN Q3HRS PRN SL MODERATE TO SEVERE PAIN Last administered on 11/16/18at 10:21; Start 11/16/18 at 09:15; Stop 11/16/18 at 11:27; Status DC Hydrocortisone Sodium Succinate (Solu-CORTEF) 100 mg 1X ONCE IV Last administered on 11/16/18at 11:45; Start 11/16/18 at 11:30; Stop 11/16/18 at 11:31; Status DC Diphenhydramine HCl (Benadryl) 25 mg PRN Q24HRS PRN IVP ITCHING Last administered on 11/16/18at 11:47; Start 11/16/18 at 11:30 Sodium Chloride 90 meq/Potassium Chloride 50 meq/ Potassium Phosphate 13.6 mmol/Magnesium Sulfate 10 meq/ Calcium Gluconate 10 meq/ Multivitamins 10 ml/Chromium/ Copper/Manganese/ Seleni/Zn 1 ml/ Total Parenteral Nutrition/Amino Acids/Dextrose/ Fat Emulsion Intravenous 1,008 ml @ 42 mls/hr TPN CONT IV Last administered on 11/16/18at 21:41; Start 11/16/18 at 22:00; Stop 11/17/18 at 21:59 Insulin Glargine (Lantus Syringe) 5 unit QHS SQ Last administered on 11/16/18at 21:40; Start 11/16/18 at 21:00 Active Scripts Active Reported Albuterol Sulfate Neb Soln (Albuterol Sulfate) 2.5 Mg/3 Ml Vial.neb 1 Vial NEB QID Hydrocodone-Apap 7.5-325/15 Soln (Hydrocodone Bit/Acetaminophen) 15 Ml Solution 15 Ml PO PRN Q6HRS PRN Levemir (Insulin Detemir) 100 Unit/1 Ml Vial 5 Unit SQ HS Vitals/I & O Vital Sign - Last 24 Hours 11/16/18 11/16/18 11/16/18 11/16/18 11:48 13:27 15:00 15:07 Temp 97.4 97.4 Pulse 89 Resp 14 B/P (MAP) 153/82 (105) Pulse Ox 100 96 100 O2 Delivery Room Air Room Air Room Air Room Air O2 Flow Rate 2.0 2.0 11/16/18 11/16/18 11/16/18 11/16/18 15:18 16:31 17:15 19:00 Temp 98.2 98.2 Pulse 107 Resp 18 B/P (MAP) 142/79 (100) Pulse Ox 100 100 93 O2 Delivery Room Air Room Air Room Air Room Air O2 Flow Rate 2.0 2.0 11/16/18 11/16/18 11/16/18 11/16/18 19:40 20:00 20:00 20:10 Resp 18 20 O2 Delivery Room Air Room Air Room Air Room Air 11/16/18 11/16/18 11/16/18 11/17/18 22:42 23:00 23:12 01:45 Temp 98.3 98.3 Pulse 97 Resp 18 20 20 B/P (MAP) 117/66 (83) Pulse Ox 94 O2 Delivery Room Air Room Air Room Air Room Air 11/17/18 11/17/18 11/17/18 11/17/18 02:29 03:00 04:46 05:16 Temp 98.3 98.3 Pulse 82 Resp 18 18 18 20 B/P (MAP) 118/60 (79) Pulse Ox 93 O2 Delivery Room Air Room Air Room Air Room Air 11/17/18 11/17/18 11/17/18 11/17/18 07:00 07:37 08:00 08:20 Temp 97.3 97.3 Pulse 85 Resp 18 16 B/P (MAP) 102/54 (70) Pulse Ox 96 98 O2 Delivery Room Air Room Air Room Air Room Air 11/17/18 11/17/18 11/17/18 08:21 08:51 11:00 Temp 98.4 98.4 Pulse 92 Resp 16 16 18 B/P (MAP) 142/79 (100) Pulse Ox 95 O2 Delivery Room Air Room Air Room Air Intake and Output 11/16/18 11/16/18 11/17/18 15:00 23:00 07:00 Intake Total 0 ml Balance 0 ml Nutrition Consultation Dietary Evaluation: Recommendations by RD: PPN/TPN Comments: TPN initated 160 g dextrose, 45 g AA, 20 g lipid - continue rec continue clear liquds, encourage clear supplements prn Expected Outcomes/Goals: to meet > 75% est nutr needs via TPN and po intake - met via TPN, goal ongoing Malnutrition Findings: Muscle Mass (Severe): Severe Depletion Food and Nutrition Intake (Sev: <50% est energy req 5days Weight Status: Underweight TERRI MARTINS MD Nov 17, 2018 11:09
--- NOTE | 2018-11-17 11:54 | PDOC ---
GI PROGRESS NOTES Date Date/Time DATE: 11/17/18 TIME: 11:52 Subjective Subjective no change today- ready for d/c awaiting outpt TPN coverage Objective Vitals Vital Signs Date Time Temp Pulse Resp B/P (MAP) Pulse Ox O2 Delivery O2 Flow Rate FiO2 11/17/18 11:22 16 Room Air 11/17/18 11:15 97 Room Air 11/17/18 11:00 98.4 92 18 142/79 (100) 95 Room Air 98.4 11/17/18 08:51 16 Room Air 11/17/18 08:21 16 Room Air 11/17/18 08:20 16 Room Air 11/17/18 08:00 Room Air 11/17/18 07:37 98 Room Air 11/17/18 07:00 97.3 85 18 102/54 (70) 96 Room Air 97.3 11/17/18 05:16 20 Room Air 11/17/18 04:46 18 Room Air 11/17/18 03:00 98.3 82 18 118/60 (79) 93 Room Air 98.3 11/17/18 02:29 18 Room Air 11/17/18 01:45 20 Room Air 11/16/18 23:12 20 Room Air 11/16/18 23:00 98.3 97 18 117/66 (83) 94 Room Air 98.3 11/16/18 22:42 Room Air 11/16/18 20:10 20 Room Air 11/16/18 20:00 Room Air 11/16/18 20:00 Room Air 11/16/18 19:40 18 Room Air 11/16/18 19:00 98.2 107 18 142/79 (100) 93 Room Air 98.2 11/16/18 17:15 100 Room Air 2.0 11/16/18 16:31 100 Room Air 2.0 11/16/18 15:18 Room Air 11/16/18 15:07 100 Room Air 2.0 11/16/18 15:00 97.4 89 14 153/82 (105) 96 Room Air 97.4 11/16/18 13:27 100 Room Air 2.0 Labs Labs Laboratory Tests Test 11/16/18 16:41 11/16/18 20:39 11/16/18 22:38 11/17/18 02:45 Glucose (Fingerstick) 203 mg/dL (70-99) 328 mg/dL (70-99) 315 mg/dL (70-99) 283 mg/dL (70-99) Test 11/17/18 05:45 11/17/18 07:17 11/17/18 11:32 Sodium Level 142 mmol/L (136-145) Potassium Level 4.2 mmol/L (3.5-5.1) Chloride Level 104 mmol/L (98-107) Carbon Dioxide Level 32 mmol/L (21-32) Anion Gap 6 (6-14) Blood Urea Nitrogen 13 mg/dL (7-20) Creatinine 0.4 mg/dL (0.6-1.0) Estimated GFR (Cockcroft-Gault) 156.0 Glucose Level 191 mg/dL (70-99) Calcium Level 9.2 mg/dL (8.5-10.1) Phosphorus Level 3.2 mg/dL (2.6-4.7) Magnesium Level 1.9 mg/dL (1.8-2.4) Glucose (Fingerstick) 188 mg/dL (70-99) 221 mg/dL (70-99) Physical Exam Physical Exam thin/wasted chest- few rhonchi Assessment Assessment Dysphagia with lung cancer and mediastinal involvement- s/p rads- still having hard time with liquids orally but on TPN now Plan Plan TPN as planned they will f/u with [facility] and discuss additional options KASSI TORRES MD Nov 17, 2018 11:54
--- NOTE | 2018-11-17 12:00 | NUR ---
LATE ENTRY: SS received phone contact at 1700 on 11/16/2018 from [employer] stating that they needed additional documentation per medicare guidelines stating that pt has had a 10% weight loss and that the Esophagram and Upper GI series from 10/26/2018 showed dysmotility and small bowel slowing. She also reported that they needed documentation that the testing was done over a six hour period. Referral phoned and faxed to [employer], ; fax [phone] as well for review. [employer] is currently reviewing. SS was notified this morning that since pt has Medicare A&B with no secondary pt will have a 20% co-pay which is approximately $55/day. SS phoned and faxed most updated clinical showing documentation of weight loss. Both companies continue to review. SS will await further response and will proceed accordingly.
[2018-11-17] MEDS: TPN PER PHARMACY MC PRN (12:33)
--- NOTE | 2018-11-17 12:37 | NUR ---
Pharmacy TPN Dosing Note S: ANITA JENNINGS is a 73 year old F Currently receiving Central Continuous TPN started 11/15/18 B:Pertinent PMH: Esophageal stricture r/t malignancy Height: 5 feet, 0 inches Weight: 33.346319 kg Current diet: CLD LABS: Sodium: 142 Potassium: 4.2 Chloride: 104 Calcium: 9.2 Corrected Calcium: 10.24 Magnesium: 1.9 CO2: 32 SCr: 0.4 Glucose: 188-221 Albumin: 2.7 AST: 9 ALT: 10 TPN FORMULA: TPN TYPE: Central Continuous AMINO ACIDS: 45 gm DEXTROSE: 160 gm LIPIDS: 20 gm SODIUM CHLORIDE: 90 mEq SODIUM ACETATE: - mEq SODIUM PHOSPHATE: - mmol POTASSIUM CHLORIDE: 50 mEq POTASSIUM ACETATE: - mEq POTASSIUM PHOSPHATE: 13.6 mmol MAGNESIUM: 10 mEq CALCIUM: 10 mEq INSULIN: - units MULTIPLE VITAMIN: 10 ml TRACE ELEMENTS: MTE5 1ML ml(s) TPN PLAN: -Will continue macros per dietary recommendations -Noted Sodium level trending up and Mag level trending down; However, electrolyte levels were within normal limits. At this time plan to continue same formula and monitor trend. -BG this AM below 200's after addition of 5 units of lantus at bedtime. Confirmed with RN pt is receiving available SSI, however there are times the patient is refusing b/c of her sensitivity to insulin. Will continue without insulin in TPN at this time. -CMP, Mag and Phos ordered for 11/18/18 R: Continue same TPN formulation Will monitor electrolytes, glucose, and tolerance to TPN. JESUS ALBERTO PATEL, [facility], 11/17/18 [id number]
[2018-11-17 15:00] VITALS: BP 142/67
--- NOTE | 2018-11-17 15:20 | NUR ---
Care of patient transitioned to newspaper writer, report given by SURESH Parmar, will continue to monitor patient.
--- NOTE | 2018-11-17 16:17 | NUR ---
SS following up with discharge planning. Medicare co-pay discussed with pt's spouse. Pt's spouse reported that they cannot pay the Medicare co-pay of $55/day for TPN. SS discussed with Claudio at [facility] to see if IV nutrition (TPN) could be provided as a comfort measure due to pt's inability to intake food orally. [facility] is reviewing pt's records and reported that they would contact SS and meet with pt and pt's family to discuss.
--- NOTE | 2018-11-17 16:25 | NUR ---
SS following up with discharge planning. [facility] contacted SS and reported that they spoke with pt's family and scheduled family meeting for 11/18/2018 at 1000. SS will continue to follow for discharge planning.
[2018-11-17 19:15] VITALS: BP 157/68
[2018-11-17] MEDS: INSULIN GLARGINE SYRINGE. SQ SCH (21:00)
[2018-11-17] MEDS ORDERED: [UNRECOGNIZED DRUG - OTHER] IV SCH ×10 (22:00)
[2018-11-17] MEDS ORDERED: TOTAL PARENTERAL NUTRITION IV SCH ×10 (22:00)
[2018-11-17] MEDS ORDERED: DEXTROSE 70% IV SCH ×10 (22:00)
[2018-11-17] MEDS ORDERED: AMINO ACID IV SCH ×10 (22:00)
[2018-11-17 23:24] VITALS: BP 127/55
[2018-11-18] MEDS: fentaNYL PF VIAL 100 MCG/2 ML VIAL IVP PRN ×7 (02:40→21:50)
[2018-11-18 03:30] VITALS: BP 139/66
[2018-11-18] MEDS: PANTOPRAZOLE IV PUSH 40 MG VIAL. IVP SCH (05:56)
[2018-11-18 06:09] LABS: HEMATOCRIT 31.2 % (36.0-47.0); HEMOGLOBIN 10.3 g/dL (12.0-15.5); RED BLOOD COUNT 3.49 x10^6/uL (3.50-5.40); RED CELL DISTRIBUTION WIDTH 16.5 % (11.5-14.5); WHITE BLOOD COUNT 6.1 x10^3/uL (4.0-11.0)
[2018-11-18 07:00] VITALS: BP 113/42
[2018-11-18] MEDS: ALBUTEROL SULFATE 2.5 MG/3 ML NEBU. NEB SCH ×4 (07:04→20:03)
[2018-11-18 07:05] LABS: ALBUMIN 2.4 g/dL (3.4-5.0); ALBUMIN/GLOBULIN RATIO 0.6 (1.0-1.7); CALCIUM 8.7 mg/dL (8.5-10.1); CREATININE 0.4 mg/dL (0.6-1.0); POTASSIUM 4.9 mmol/L (3.5-5.1); TOTAL BILIRUBIN 0.2 mg/dL (0.2-1.0); TOTAL PROTEIN 6.1 g/dL (6.4-8.2)
[2018-11-18] MEDS: INSULIN LISPRO 300 UNITS/3 ML VIAL. SQ SCH ×3 (08:26→17:03)
--- NOTE | 2018-11-18 09:07 | PN ---
DATE: 11/18/2018 SUBJECTIVE: The patient is sitting on the edge of the bed comfortably, in no apparent distress. On questioning her, denied any complaint, stated she had an uneventful night. A meeting is scheduled with the patient, her and [facility] as well as our palliative care team. PHYSICAL EXAMINATION: GENERAL: When I examined her, she looked pale, cachectic, but no jaundice, cyanosis, or thyromegaly. No jugular venous distension. No lower limb edema. VITAL SIGNS: Her heart rate was 98, her blood pressure was 113/42, her temperature was 98.5, respiratory rate was 16, and oxygen saturation was 96% on room air. The rest of clinical exam is stable, has not really changed. Her intake and output were incompletely recorded. LABORATORY DATA: Her lab work this morning showed a white cell count 6000, hemoglobin 10, hematocrit 30, MCV 90 and platelet count 322,000. Chemistry showed a serum sodium of 137, potassium 4.9, chloride 101, bicarbonate 33, anion gap of 3, BUN 13, creatinine 0.4, estimated GFR was 156, blood glucose was 186, calcium was 8.7. Total bilirubin, AST, ALT, alkaline phosphatase were normal. Total protein was 6.1, albumin was 2.4. ASSESSMENT: 1. Abnormal weight loss. 2. Dysphagia. 3. Esophageal dysfunction. 4. Esophageal stricture, status post stent deployment. 5. Metastatic lung cancer with stage 3B non-small lung cancer. PLAN: To obviously await the outcome of discussion with the [facility] as well as palliative care team and obviously if the [facility] is able to provide assistance, then the patient can be discharged. ARIANA WADSWORTH MD DR: MAXIMILIANO/karolina JOB#: [id number] / [id number]
[2018-11-18 11:00] VITALS: BP 150/76
[2018-11-18] MEDS: TPN PER PHARMACY MC PRN (11:05)
--- NOTE | 2018-11-18 11:19 | NUR ---
SS following up with discharge planning. SS, HCFS worker, Yin Kathleen, Palliative Care RN, Kandice Celaya, and [facility] met with pt and spouse to discuss discharge planning. Pt's spouse reported that he wants to "save" his . Pt and pt's spouse appropriate for hospice but not hospice minded. Pt's spouse wanting TPN for nutrition but cannot afford Medicare co-pay of $55/day. Yin from [facility] completing Medicaid application with pt and pt's spouse. Pt's spouse reported that he has $[id number] in a 401K. Yin reported that they will need to pull that money for medical expenses for pt and provide explanation to Medicaid. Pt's spouse was informed that it may take one to two weeks to pull the 401K and that he will probably have to pay a penalty. Pt's spouse reported understanding. Pt and pt's spouse continue to demand TPN nutrition at this time. Palliative care recommended that pt's spouse check with family to see if family has any resources that they can use until Medicaid is approved and 401K money is received. Pt's spouse reported that he has a son that flew in from [place] and two daughters at home, one of which is special needs. Pt provided with contact information for [facility] in the event that they change there mind. SS will continue to follow for discharge planning.
--- NOTE | 2018-11-18 11:31 | NUR ---
Pharmacy TPN Dosing Note S: ANITA JENNINGS is a 73 year old F Currently receiving Central Continuous TPN started 11/15/18 B:Pertinent PMH: Esophageal stricture r/t malignancy Height: 5 feet, 0 inches Weight: 33.184041 kg Current diet: CLD LABS: Sodium: 137 Potassium: 4.9 Chloride: 101 Calcium: 8.7 Corrected Calcium: 9.98 Magnesium: 1.9 CO2: 33 SCr: 0.4 Glucose: 286 Albumin: 2.4 AST: 9 ALT: 10 TPN FORMULA: TPN TYPE: Central Continuous AMINO ACIDS: 45 gm DEXTROSE: 160 gm LIPIDS: 20 gm SODIUM CHLORIDE: 90 mEq SODIUM ACETATE: - mEq SODIUM PHOSPHATE: - mmol POTASSIUM CHLORIDE: 50 mEq POTASSIUM ACETATE: - mEq POTASSIUM PHOSPHATE: 13.6 mmol MAGNESIUM: 10 mEq CALCIUM: 10 mEq INSULIN: - units MULTIPLE VITAMIN: 10 ml TRACE ELEMENTS: MTE5 1ML ml(s) TPN PLAN: -Will continue macros per dietary recommendations -Noted Sodium level trending up and Mag level trending down; However, electrolytes were within normal limits. At this time plan to continue same formula and monitor trend. -BG this AM below 200's after addition of 5 units of lantus at bedtime. Confirmed with RN pt is receiving available SSI, however there are times where the patient is refusing b/c of her sensitivity to insulin. Also pt may not be the best candidate for insulin in TPN since plan is to DC home with home health SARITHA (possibly today or tomorrow) on lifetime TPN. -CMP, Mag and Phos ordered for 11/18/18 R: Continue TPN at 42 ml/hr Will monitor electrolytes, glucose, and tolerance to TPN. PAWAN MARSH, [facility], 11/18/18 2170
--- NOTE | 2018-11-18 13:02 | PDOC ---
PROGRESS NOTES Subjective Subjective HPI - f/u of Stage IIIB Non-small cell lung cancer involving the left upper lobe. ROS - has dysphagia Objective Objective Vital Signs Date Time Temp Pulse Resp B/P (MAP) Pulse Ox O2 Delivery O2 Flow Rate FiO2 11/18/18 12:03 Room Air 11/18/18 11:00 97.8 100 16 150/76 (100) 97 97.8 11/18/18 00:13 2.0 Intake and Output 11/18/18 06:59 Intake Total 880 ml Balance 880 ml Intake Oral 880 ml # Voids 2 Physical Exam Heart: Normal S1, Normal S2 General: Alert, Oriented X3, No acute distress Lungs: Clear to auscultation Neuro: Normal speech Psych/Mental Status: Mental status NL Assessment Assessment Problems Medical Problems: (1) Abnormal weight loss Status: Chronic (2) Dysphagia Status: Acute (3) Esophageal dysfunction Status: Acute (4) Esophageal stricture Status: Acute (5) Malnutrition Status: Acute (6) Malnutrition Status: Acute (7) Metastatic lung cancer (metastasis from lung to other site) Status: Acute IMPRESSION AND PLAN: 1. Stage IIIB Non-small cell lung cancer involving the left upper lobe. PET scan on 07/28/2018 revealed a 2-cm spiculated nodule in the left upper lobe with contiguous hypermetabolic tissue within the mediastinum, involving both the right and left aspects of the upper mediastinum extending into the subcarinal lymph node suggesting confluent adenopathy. There is hypermetabolic right subclavian level nodule. Small peripheral 1 cm spiculated density abutting the pleura and the posterior lateral aspect of the right upper lobe and a small nodule in the left upper lobe are also noted (could be inflammatory). She underwent right supraclavicular lymph node biopsy on 08/25/2018 and there was not enough tissue to check for biomarkers. She was referred to for further biomarker testing. She underwent radiation therapy to the central mediastinum and esophagus from 09/28/2018 through 10/12/[address] Baez. Plan immunotherapy or chemotherapy depending on the biomarker results and she has an appointment with Pulmonary Medicine at [facility] for possible biopsy. She was told that another CAT scan will be done prior to deciding on the biopsy and she prefers to get it here. CT chest: 11/15/18: Decrease in size of primary left upper lobe mass previously measuring 2.2 x 1.3 cm and currently measuring 1.6 x 1.2 cm. No new or enlarging thoracic lymphadenopathy. Stable subpleural nodular opacity in the right upper lobe measuring 0.9 x 0.7 cm. Similar positioning of thoracic esophageal stent with debris noted. There is circumferential wall thickening involving the distal esophagus which may reflect esophagitis. Since there is no progression of the small RUL nodule, this could be old granulomatou disease, hence she likely has Stage IIIB lung cancer and I will plan for consolidation immunotherapy with Durvalumab as outpatient. She does not want chemo and agree. I d/w IR and CT does not reveal any new changes for a safe bx. 2. Dysphagia, status post esophageal stent placement in 09/2018 and she completed palliative radiation therapy. However, she has persistent symptoms and hence Gastroenterology was consulted, who suggested considering feeding tube placement at [facility]. She d/w Dr Rubi and started TPN for nutrition. s/p Successful ultrasound and fluoroscopically guided placement of a left internal jugular tunneled central venous catheter 11/15/18. I d/w DR Gilbert Comment Review of Relevant I have reviewed the following items sky (where applicable) has been applied. Labs Laboratory Tests Test 11/16/18 16:41 11/16/18 20:39 11/16/18 22:38 11/17/18 02:45 Glucose (Fingerstick) 203 mg/dL (70-99) 328 mg/dL (70-99) 315 mg/dL (70-99) 283 mg/dL (70-99) Test 11/17/18 05:45 11/17/18 07:17 11/17/18 11:32 11/17/18 16:35 Sodium Level 142 mmol/L (136-145) Potassium Level 4.2 mmol/L (3.5-5.1) Chloride Level 104 mmol/L (98-107) Carbon Dioxide Level 32 mmol/L (21-32) Anion Gap 6 (6-14) Blood Urea Nitrogen 13 mg/dL (7-20) Creatinine 0.4 mg/dL (0.6-1.0) Estimated GFR (Cockcroft-Gault) 156.0 Glucose Level 191 mg/dL (70-99) Calcium Level 9.2 mg/dL (8.5-10.1) Phosphorus Level 3.2 mg/dL (2.6-4.7) Magnesium Level 1.9 mg/dL (1.8-2.4) Glucose (Fingerstick) 188 mg/dL (70-99) 221 mg/dL (70-99) 243 mg/dL (70-99) Test 11/17/18 21:20 11/17/18 22:42 11/18/18 06:00 11/18/18 07:36 Glucose (Fingerstick) 69 mg/dL (70-99) 215 mg/dL (70-99) 260 mg/dL (70-99) White Blood Count 6.1 x10^3/uL (4.0-11.0) Red Blood Count 3.49 x10^6/uL (3.50-5.40) Hemoglobin 10.3 g/dL (12.0-15.5) Hematocrit 31.2 % (36.0-47.0) Mean Corpuscular Volume 90 fL (79-100) Mean Corpuscular Hemoglobin 30 pg (25-35) Mean Corpuscular Hemoglobin Concent 33 g/dL (31-37) Red Cell Distribution Width 16.5 % (11.5-14.5) Platelet Count 322 x10^3/uL (140-400) Sodium Level 137 mmol/L (136-145) Potassium Level 4.9 mmol/L (3.5-5.1) Chloride Level 101 mmol/L (98-107) Carbon Dioxide Level 33 mmol/L (21-32) Anion Gap 3 (6-14) Blood Urea Nitrogen 13 mg/dL (7-20) Creatinine 0.4 mg/dL (0.6-1.0) Estimated GFR (Cockcroft-Gault) 156.0 BUN/Creatinine Ratio 33 (6-20) Glucose Level 286 mg/dL (70-99) Calcium Level 8.7 mg/dL (8.5-10.1) Total Bilirubin 0.2 mg/dL (0.2-1.0) Aspartate Amino Transf (AST/SGOT) 14 U/L (15-37) Alanine Aminotransferase (ALT/SGPT) 19 U/L (14-59) Alkaline Phosphatase 112 U/L (46-116) Total Protein 6.1 g/dL (6.4-8.2) Albumin 2.4 g/dL (3.4-5.0) Albumin/Globulin Ratio 0.6 (1.0-1.7) Laboratory Tests Test 11/17/18 16:35 11/17/18 21:20 11/17/18 22:42 11/18/18 06:00 Glucose (Fingerstick) 243 mg/dL (70-99) 69 mg/dL (70-99) 215 mg/dL (70-99) White Blood Count 6.1 x10^3/uL (4.0-11.0) Red Blood Count 3.49 x10^6/uL (3.50-5.40) Hemoglobin 10.3 g/dL (12.0-15.5) Hematocrit 31.2 % (36.0-47.0) Mean Corpuscular Volume 90 fL (79-100) Mean Corpuscular Hemoglobin 30 pg (25-35) Mean Corpuscular Hemoglobin Concent 33 g/dL (31-37) Red Cell Distribution Width 16.5 % (11.5-14.5) Platelet Count 322 x10^3/uL (140-400) Sodium Level 137 mmol/L (136-145) Potassium Level 4.9 mmol/L (3.5-5.1) Chloride Level 101 mmol/L (98-107) Carbon Dioxide Level 33 mmol/L (21-32) Anion Gap 3 (6-14) Blood Urea Nitrogen 13 mg/dL (7-20) Creatinine 0.4 mg/dL (0.6-1.0) Estimated GFR (Cockcroft-Gault) 156.0 BUN/Creatinine Ratio 33 (6-20) Glucose Level 286 mg/dL (70-99) Calcium Level 8.7 mg/dL (8.5-10.1) Total Bilirubin 0.2 mg/dL (0.2-1.0) Aspartate Amino Transf (AST/SGOT) 14 U/L (15-37) Alanine Aminotransferase (ALT/SGPT) 19 U/L (14-59) Alkaline Phosphatase 112 U/L (46-116) Total Protein 6.1 g/dL (6.4-8.2) Albumin 2.4 g/dL (3.4-5.0) Albumin/Globulin Ratio 0.6 (1.0-1.7) Test 11/18/18 07:36 Glucose (Fingerstick) 260 mg/dL (70-99) Medications Current Medications Sodium Chloride 1,000 ml @ 1,000 mls/hr 1X ONCE IV Last administered on 11/11/18 12:23; Start 11/11/18 at 11:30; Stop 11/11/18 at 12:29; Status DC Ondansetron HCl (Zofran) 4 mg PRN Q8HRS PRN IV NAUSEA/VOMITING; Start 11/11/18 at 13:00; Stop 11/12/18 at 12:59; Status DC Acetaminophen/ Hydrocodone Bitart (Lortab 7.5-325/ 15ml Oral Solution) 15 ml 1X ONCE PO Last administered on 11/11/18 13:25; Start 11/11/18 at 13:15; Stop 1 at 13:16; Status DC Pantoprazole Sodium (PROTONIX VIAL for IV PUSH) 40 mg DAILYAC IVP Last administered on 11/18/18 05:56; Start 11/11/18 at 16:00 Albuterol Sulfate (Ventolin Neb Soln) 2.5 mg RTQID NEB Last administered on 11/18/18 07:04; Start 11/11/18 at 20:00 Acetaminophen/ Hydrocodone Bitart (Lortab 7.5-325/ 15ml Oral Solution) 15 ml PRN Q6HRS PRN PO PAIN Last administered on 11/11/18 20:26; Start 11/11/18 at 16:30 Albuterol Sulfate (Ventolin Neb Soln) 2.5 mg PRN Q4HRS PRN NEB SHORTNESS OF BREATH Last administered on 11/14/18 09:25; Start 11/11/18 at 16:30; Stop 11/15/18 at 21:59; Status DC Amino Acids/ Glycerin/ Electrolytes 1,000 ml @ 80 mls/hr [id number] IV Last administered on 11/15/18 17:28; Start 11/11/18 at 16:30; Stop 11/15/18 at 21:59; Status DC Insulin Human Lispro (HumaLOG) 0-5 UNITS TIDWMEALS SQ Last administered on 11/18/18 08:26; Start 11/11/18 at 17:00 Dextrose (Dextrose 50%-Water Syringe) 12.5 gm PRN Q15MIN PRN IV SEE COMMENTS; Start 11/11/18 at 16:30 Fentanyl Citrate (Fentanyl 2ml Vial) 25 mcg PRN Q3HRS PRN IVP PAIN Last administered on 11/18/18at 12:03; Start 11/12/18 at 06:45 Fentanyl (Duragesic 12mcg/ Hr Patch) 1 patch Q3DAYS TD Last administered on 11/12/18at 18:06; Start 11/12/18 at 12:00; Stop 11/14/18 at 01:46; Status DC Magnesium Hydroxide (Milk Of Magnesia) 2,400 mg PRN DAILY PRN PO CONSTIPATION; Start 11/13/18 at 16:45 Fentanyl (Duragesic 12mcg/ Hr Patch) 1 patch 1X ONCE TD Last administered on 11/14/18at 02:37; Start 11/14/18 at 02:00; Stop 11/14/18 at 02:01; Status DC Fentanyl (Duragesic 12mcg/ Hr Patch) 1 patch Q3DAYS TD Last administered on 11/17/18at 08:20; Start 11/17/18 at 09:00 Info (Tpn Per Pharmacy) 1 each PRN DAILY PRN MC SEE COMMENTS Last administered on 11/18/18at 11:05; Start 11/14/18 at 14:30 Sodium Chloride 90 meq/Potassium Chloride 50 meq/ Potassium Phosphate 13.6 mmol/Magnesium Sulfate 10 meq/ Calcium Gluconate 10 meq/ Multivitamins 10 ml/Chromium/ Copper/Manganese/ Seleni/Zn 1 ml/ Total Parenteral Nutrition/Amino Acids/Dextrose/ Fat Emulsion Intravenous 1,512 ml @ 63 mls/hr TPN CONT IV ; Start 11/14/18 at 22:00; Stop 11/15/18 at 21:59; Status Cancel Lidocaine HCl (Buffered Lidocaine 1%) 3 ml STK-MED ONCE .ROUTE ; Start 11/14/18 at 14:17; Stop 11/14/18 at 14:18; Status DC Iohexol (Omnipaque 300 Mg/ml) 75 ml 1X ONCE IV Last administered on 11/15/18at 09:30; Start 11/15/18 at 09:15; Stop 11/15/18 at 09:16; Status DC Info (CONTRAST GIVEN -- Rx MONITORING) 1 each PRN DAILY PRN MC SEE COMMENTS; Start 11/15/18 at 09:15; Stop 11/17/18 at 09:14; Status DC Lidocaine HCl (Buffered Lidocaine 1%) 3 ml STK-MED ONCE .ROUTE ; Start 11/15/18 at 11:16; Stop 11/15/18 at 11:16; Status DC Heparin Sodium (Porcine) (Hep Lock Adult) 500 unit STK-MED ONCE .ROUTE ; Start 11/15/18 at 11:16; Stop 11/15/18 at 11:16; Status DC Lidocaine HCl (Buffered Lidocaine 1%) 3 ml 1X ONCE IJ Last administered on 11/15/18at 11:30; Start 11/15/18 at 11:30; Stop 11/15/18 at 11:31; Status DC Fentanyl Citrate (Fentanyl 2ml Vial) 100 mcg 1X ONCE IV Last administered on 11/15/18at 11:30; Start 11/15/18 at 11:30; Stop 11/15/18 at 11:31; Status DC Heparin Sodium (Porcine) (Hep Lock Adult) 500 unit 1X ONCE IVP Last administered on 11/15/18at 11:30; Start 11/15/18 at 11:30; Stop 11/15/18 at 11:31; Status DC Fentanyl Citrate (Fentanyl 2ml Vial) 100 mcg STK-MED ONCE .ROUTE ; Start 11/15/18 at 11:19; Stop 11/15/18 at 11:19; Status DC Lidocaine HCl (Buffered Lidocaine 1%) 3 ml STK-MED ONCE .ROUTE ; Start 11/15/18 at 12:02; Stop 11/15/18 at 12:02; Status DC Sodium Chloride 90 meq/Potassium Chloride 50 meq/ Potassium Phosphate 13.6 mmol/Magnesium Sulfate 10 meq/ Calcium Gluconate 10 meq/ Multivitamins 10 ml/Chromium/ Copper/Manganese/ Seleni/Zn 1 ml/ Total Parenteral Nutrition/Amino Acids/Dextrose/ Fat Emulsion Intravenous 1,008 ml @ 42 mls/hr TPN CONT IV Last administered on 11/15/18at 23:33; Start 11/15/18 at 22:00; Stop 11/16/18 at 21:59; Status DC Simethicone (Gas-X) 80 mg [id number] PRN PO GAS / BLOATING; Start 11/15/18 at 16:45 Morphine Sulfate (Roxanol Conc) 5 mg PRN Q3HRS PRN SL MODERATE TO SEVERE PAIN Last administered on 11/16/18at 10:21; Start 11/16/18 at 09:15; Stop 11/16/18 at 11:27; Status DC Hydrocortisone Sodium Succinate (Solu-CORTEF) 100 mg 1X ONCE IV Last administered on 11/16/18 11:45; Start 11/16/18 at 11:30; Stop 11/16/18 at 11:31; Status DC Diphenhydramine HCl (Benadryl) 25 mg PRN Q24HRS PRN IVP ITCHING Last administered on 11/16/18at 11:47; Start 11/16/18 at 11:30 Sodium Chloride 90 meq/Potassium Chloride 50 meq/ Potassium Phosphate 13.6 mmol/Magnesium Sulfate 10 meq/ Calcium Gluconate 10 meq/ Multivitamins 10 ml/Chromium/ Copper/Manganese/ Seleni/Zn 1 ml/ Total Parenteral Nutrition/Amino Acids/Dextrose/ Fat Emulsion Intravenous 1,008 ml @ 42 mls/hr TPN CONT IV Last administered on 11/16/18at 21:41; Start 11/16/18 at 22:00; Stop 11/17/18 at 21:59; Status DC Insulin Glargine (Lantus Syringe) 5 unit QHS SQ Last administered on 11/16/18at 21:40; Start 11/16/18 at 21:00 Sodium Chloride 90 meq/Potassium Chloride 50 meq/ Potassium Phosphate 13.6 mmol/Magnesium Sulfate 10 meq/ Calcium Gluconate 10 meq/ Multivitamins 10 ml/Chromium/ Copper/Manganese/ Seleni/Zn 1 ml/ Total Parenteral Nutrition/Amino Acids/Dextrose/ Fat Emulsion Intravenous 1,008 ml @ 42 mls/hr TPN CONT IV Last administered on 11/17/18at 21:49; Start 11/17/18 at 22:00; Stop 11/18/18 at 21:59 Active Scripts Active Reported Albuterol Sulfate Neb Soln (Albuterol Sulfate) 2.5 Mg/3 Ml Vial.neb 1 Vial NEB QID Hydrocodone-Apap 7.5-325/15 Soln (Hydrocodone Bit/Acetaminophen) 15 Ml Solution 15 Ml PO PRN Q6HRS PRN Levemir (Insulin Detemir) 100 Unit/1 Ml Vial 5 Unit SQ HS Vitals/I & O Vital Sign - Last 24 Hours 11/17/18 11/17/18 11/17/18 11/17/18 14:32 15:00 15:25 15:35 Temp 97.7 97.7 Pulse 88 Resp 16 18 16 B/P (MAP) 142/67 (92) Pulse Ox 96 97 O2 Delivery Room Air Room Air Room Air Room Air 11/17/18 11/17/18 11/17/18 11/17/18 17:20 18:17 19:15 20:00 Temp 98.7 98.7 Pulse 90 Resp 16 16 18 B/P (MAP) 157/68 (97) Pulse Ox 97 97 O2 Delivery Room Air Room Air Room Air Room Air 11/17/18 11/17/18 11/17/18 11/17/18 20:00 20:38 21:08 23:24 Temp 98.2 98.2 Pulse 98 Resp 18 B/P (MAP) 127/55 (79) Pulse Ox 97 97 95 O2 Delivery Room Air Room Air Room Air Room Air O2 Flow Rate 2.0 11/17/18 11/18/18 11/18/18 11/18/18 23:43 00:13 02:40 03:10 Pulse Ox 95 95 95 97 O2 Delivery Room Air Room Air Room Air Room Air O2 Flow Rate 2.0 11/18/18 11/18/18 11/18/18 11/18/18 03:30 05:56 06:26 07:00 Temp 97.9 98.5 97.9 98.5 Pulse 18 98 Resp 18 16 B/P (MAP) 139/66 (90) 113/42 (65) Pulse Ox 97 97 97 96 O2 Delivery Room Air Room Air Room Air Room Air 11/18/18 11/18/18 11/18/18 11/18/18 07:05 07:05 09:12 09:55 Pulse Ox 100 O2 Delivery Room Air Room Air Room Air Room Air 11/18/18 11/18/18 11:00 12:03 Temp 97.8 97.8 Pulse 100 Resp 16 B/P (MAP) 150/76 (100) Pulse Ox 97 O2 Delivery Room Air Room Air Intake and Output 11/17/18 11/17/18 11/18/18 14:59 22:59 06:59 Intake Total 320 ml 200 ml 360 ml Balance 320 ml 200 ml 360 ml Nutrition Consultation Dietary Evaluation: Recommendations by RD: PPN/TPN Comments: TPN day 4: 160 g dextrose, 45 g AA, 20 g lipid - continue rec continue clear liquds, encourage clear supplements prn Expected Outcomes/Goals: to meet > 75% est nutr needs via TPN and po intake - met via TPN, goal ongoing Malnutrition Findings: Muscle Mass (Severe): Severe Depletion Food and Nutrition Intake (Sev: <50% est energy req 5days Weight Status: Underweight TERRI MARTINS MD Nov 18, 2018 13:02
--- NOTE | 2018-11-18 13:54 | PDOC2 ---
PALLIATIVE CARE Palliative Care Note Palliative Care Consult requested by Dr. Gilbert to address goals of care. Medical Assessment per medical record; Stage IIIB NSC Lung Cancer; Esophageal stent; radiation tx. abnormal weight loss. Patient alert. Moderate amount of pain in chest and upper left chest area; Fentanyl 12.5 mcq patch + Fentanyl 25 mcq x 5 last 24 hours. TPN infusing. Spoke with patient and Sutherlin. [facility] and Dhaval from [facility] included in conversation. Patient was provided information and Medicaid application. They have 3 children; one daughter at home with severe medical challenges; 1 son from out of town, 1 daughter. Options of care that have been discussed with patient and her ; TPN--this would require $55/day co-pay; J-tube if patient gets stronger; vs hospice Sutherlin states they do not have funds to pay for TPN on a monthly bases: however after further conversation states he does have some funds that may be accessed from previous employment. Goal for patient and is to continue current treatment plan since cancer has responded to therapy. Yojana will continue to work with Sutherlin and patient to access funds for payment of TPN. If patient gets stronger they would like to pursue option of G-tube if appropriate. Hospice services explained for future needs. Plan: Continue to pursue options for funds to pay for TPN co-pay Continue current treatment plan. Consider increasing Fentanyl patch is patient continue to require frequent prn Fentanyl 1450. Sutherlin, of patient states he and family have "come up with a months worth of payment for TPN" "Where do we go next?" Yasmeen LEMUS --message on phone to speak with Roderick regarding payment resources. MUNA KNOWLES Nov 18, 2018 13:54
[2018-11-18 15:00] VITALS: BP 100/54
--- NOTE | 2018-11-18 16:55 | NUR ---
SS following up with discharge planning. Pt's family reported that they have come up with resources to help pay for TPN. SS contacted [facility], ; fax [phone], and notified that pt and pt's spouse are applying for Medicaid and do have resources to help pay for Medicaid. [facility] reported that if pt is applying for Medicaid that they can accept pt Medicaid pending and will not bill pt for 90 days until Medicaid has made a decision. [facility] reported that they can start services in 11/21/2018. SS notified pt and pt's spouse of the plan of care. [facility] reported that they would contact SS on 11/21/2018 and would complete teach with pt and pt's spouse. Pt will discharge to home with [facility], ; fax [phone], and TPN with [facility] on 11/21/2018. Pt's RN notified.
[2018-11-18 19:00] VITALS: BP 110/50
[2018-11-18] MEDS: INSULIN GLARGINE SYRINGE. SQ SCH (21:00)
[2018-11-18] MEDS ORDERED: DEXTROSE 70% IV SCH ×10 (22:00)
[2018-11-18] MEDS ORDERED: TOTAL PARENTERAL NUTRITION IV SCH ×10 (22:00)
[2018-11-18] MEDS ORDERED: AMINO ACID IV SCH ×10 (22:00)
[2018-11-18] MEDS ORDERED: [UNRECOGNIZED DRUG - OTHER] IV SCH ×10 (22:00)
[2018-11-18 23:00] VITALS: BP 112/46
[2018-11-19] VITALS (7 sets, daily range): BP systolic 106–137; BP diastolic 41–85
[2018-11-19] MEDS: fentaNYL PF VIAL 100 MCG/2 ML VIAL IVP PRN ×8 (01:00→23:03)
[2018-11-19] MEDS: ALBUTEROL SULFATE 2.5 MG/3 ML NEBU. NEB SCH ×4 (07:20→20:15)
[2018-11-19] MEDS: PANTOPRAZOLE IV PUSH 40 MG VIAL. IVP SCH (07:30)
[2018-11-19] MEDS: INSULIN LISPRO 300 UNITS/3 ML VIAL. SQ SCH ×3 (08:31→17:07)
--- NOTE | 2018-11-19 09:09 | PDOC ---
PROGRESS NOTES Subjective Subjective HPI - f/u of Stage IIIB Non-small cell lung cancer involving the left upper lobe ROS - no CP, has dysphagia Objective Objective Vital Signs Date Time Temp Pulse Resp B/P (MAP) Pulse Ox O2 Delivery O2 Flow Rate FiO2 11/19/18 08:31 97 Room Air 2.0 11/19/18 07:00 98.2 93 16 113/60 (77) 98.2 Intake and Output 11/19/18 07:00 # Voids 10 Physical Exam Heart: Normal S1, Normal S2 General: Alert, Oriented X3, No acute distress Lungs: Clear to auscultation Neuro: Normal speech Psych/Mental Status: Mental status NL Assessment Assessment Problems Medical Problems: (1) Abnormal weight loss Status: Chronic (2) Dysphagia Status: Acute (3) Esophageal dysfunction Status: Acute (4) Esophageal stricture Status: Acute (5) Malnutrition Status: Acute (6) Malnutrition Status: Acute (7) Metastatic lung cancer (metastasis from lung to other site) Status: Acute IMPRESSION AND PLAN: 1. Stage IIIB Non-small cell lung cancer involving the left upper lobe. PET scan on 07/28/2018 revealed a 2-cm spiculated nodule in the left upper lobe with contiguous hypermetabolic tissue within the mediastinum, involving both the right and left aspects of the upper mediastinum extending into the subcarinal lymph node suggesting confluent adenopathy. There is hypermetabolic right subclavian level nodule. Small peripheral 1 cm spiculated density abutting the pleura and the posterior lateral aspect of the right upper lobe and a small nodule in the left upper lobe are also noted (could be inflammatory). She underwent right supraclavicular lymph node biopsy on 08/25/2018 and there was not enough tissue to check for biomarkers. She was referred to for further biomarker testing. She underwent radiation therapy to the central mediastinum and esophagus from 09/28/2018 through 10/12/[address] chest: 11/15/18: Decrease in size of primary left upper lobe mass previously measuring 2.2 x 1.3 cm and currently measuring 1.6 x 1.2 cm. No new or enlarging thoracic lymphadenopathy. Stable subpleural nodular opacity in the right upper lobe measuring 0.9 x 0.7 cm. Similar positioning of thoracic esophageal stent with debris noted. The re is circumferential wall thickening involving the distal esophagus which may reflect esophagitis. Since there is no progression of the small RUL nodule, this could be old granulomatou disease, hence she likely has Stage IIIB lung cancer and I will plan for consolidation immunotherapy with Durvalumab as outpatient. She does not want chemo and agree. I d/w IR and with Dr Guthrie (), CT does not reveal any new changes for a safe bx. 2. Dysphagia, status post esophageal stent placement in 09/2018 and she completed palliative radiation therapy. However, she has persistent symptoms and hence Gastroenterology was consulted, who suggested considering feeding tube placement at [facility]. She d/w Dr Rubi and started TPN for nutrition. s/p Successful ultrasound and fluoroscopically guided placement of a left internal jugular tunneled central venous catheter 11/15/18. Comment Review of Relevant I have reviewed the following items sky (where applicable) has been applied. Labs Laboratory Tests Test 11/17/18 11:32 11/17/18 16:35 11/17/18 21:20 11/17/18 22:42 Glucose (Fingerstick) 221 mg/dL (70-99) 243 mg/dL (70-99) 69 mg/dL (70-99) 215 mg/dL (70-99) Test 11/18/18 06:00 11/18/18 07:36 11/18/18 11:36 11/18/18 14:53 White Blood Count 6.1 x10^3/uL (4.0-11.0) Red Blood Count 3.49 x10^6/uL (3.50-5.40) Hemoglobin 10.3 g/dL (12.0-15.5) Hematocrit 31.2 % (36.0-47.0) Mean Corpuscular Volume 90 fL (79-100) Mean Corpuscular Hemoglobin 30 pg (25-35) Mean Corpuscular Hemoglobin Concent 33 g/dL (31-37) Red Cell Distribution Width 16.5 % (11.5-14.5) Platelet Count 322 x10^3/uL (140-400) Sodium Level 137 mmol/L (136-145) Potassium Level 4.9 mmol/L (3.5-5.1) Chloride Level 101 mmol/L (98-107) Carbon Dioxide Level 33 mmol/L (21-32) Anion Gap 3 (6-14) Blood Urea Nitrogen 13 mg/dL (7-20) Creatinine 0.4 mg/dL (0.6-1.0) Estimated GFR (Cockcroft-Gault) 156.0 BUN/Creatinine Ratio 33 (6-20) Glucose Level 286 mg/dL (70-99) Calcium Level 8.7 mg/dL (8.5-10.1) Total Bilirubin 0.2 mg/dL (0.2-1.0) Aspartate Amino Transf (AST/SGOT) 14 U/L (15-37) Alanine Aminotransferase (ALT/SGPT) 19 U/L (14-59) Alkaline Phosphatase 112 U/L (46-116) Total Protein 6.1 g/dL (6.4-8.2) Albumin 2.4 g/dL (3.4-5.0) Albumin/Globulin Ratio 0.6 (1.0-1.7) Glucose (Fingerstick) 260 mg/dL (70-99) 177 mg/dL (70-99) 259 mg/dL (70-99) Test 11/18/18 16:44 11/18/18 20:18 11/19/18 08:07 Glucose (Fingerstick) 329 mg/dL (70-99) 153 mg/dL (70-99) 338 mg/dL (70-99) Laboratory Tests Test 11/18/18 11:36 11/18/18 14:53 11/18/18 16:44 11/18/18 20:18 Glucose (Fingerstick) 177 mg/dL (70-99) 259 mg/dL (70-99) 329 mg/dL (70-99) 153 mg/dL (70-99) Test 11/19/18 08:07 Glucose (Fingerstick) 338 mg/dL (70-99) Medications Current Medications Sodium Chloride 1,000 ml @ 1,000 mls/hr 1X ONCE IV Last administered on 11/11/18at 12:23; Start 11/11/18 at 11:30; Stop 11/11/18 at 12:29; Status DC Ondansetron HCl (Zofran) 4 mg PRN Q8HRS PRN IV NAUSEA/VOMITING; Start 11/11/18 at 13:00; Stop 11/12/18 at 12:59; Status DC Acetaminophen/ Hydrocodone Bitart (Lortab 7.5-325/ 15ml Oral Solution) 15 ml 1X ONCE PO Last administered on 11/11/18 13:25; Start 11/11/18 at 13:15; Stop 11/11/18 at 13:16; Status DC Pantoprazole Sodium (PROTONIX VIAL for IV PUSH) 40 mg DAILYAC IVP Last administered on 11/19/18 07:30; Start 11/11/18 at 16:00 Albuterol Sulfate (Ventolin Neb Soln) 2.5 mg RTQID NEB Last administered on 11/19/18 07:20; Start 11/11/18 at 20:00 Acetaminophen/ Hydrocodone Bitart (Lortab 7.5-325/ 15ml Oral Solution) 15 ml PRN Q6HRS PRN PO PAIN Last administered on 11/11/18 20:26; Start 11/11/18 at 16:30 Albuterol Sulfate (Ventolin Neb Soln) 2.5 mg PRN Q4HRS PRN NEB SHORTNESS OF BREATH Last administered on 11/14/18 09:25; Start 11/11/18 at 16:30; Stop 11/15/18 at 21:59; Status DC Amino Acids/ Glycerin/ Electrolytes 1,000 ml @ 80 mls/hr [id number] IV Last administered on 11/15/18 17:28; Start 11/11/18 at 16:30; Stop 11/15/18 at 21:59; Status DC Insulin Human Lispro (HumaLOG) 0-5 UNITS TIDWMEALS SQ Last administered on 11/19/18 08:31; Start 11/11/18 at 17:00 Dextrose (Dextrose 50%-Water Syringe) 12.5 gm PRN Q15MIN PRN IV SEE COMMENTS; Start 11/11/18 at 16:30 Fentanyl Citrate (Fentanyl 2ml Vial) 25 mcg PRN Q3HRS PRN IVP PAIN Last administered on 11/19/18 07:42; Start 11/12/18 at 06:45 Fentanyl (Duragesic 12mcg/ Hr Patch) 1 patch Q3DAYS TD Last administered on 11/12/18 18:06; Start 11/12/18 at 12:00; Stop 11/14/18 at 01:46; Status DC Magnesium Hydroxide (Milk Of Magnesia) 2,400 mg PRN DAILY PRN PO CONSTIPATION; Start 11/13/18 at 16:45 Fentanyl (Duragesic 12mcg/ Hr Patch) 1 patch 1X ONCE TD Last administered on 11/14/18at 02:37; Start 11/14/18 at 02:00; Stop 11/14/18 at 02:01; Status DC Fentanyl (Duragesic 12mcg/ Hr Patch) 1 patch Q3DAYS TD Last administered on 11/17/18at 08:20; Start 11/17/18 at 09:00 Info (Tpn Per Pharmacy) 1 each PRN DAILY PRN MC SEE COMMENTS Last administered on 11/18/18at 11:05; Start 11/14/18 at 14:30 Sodium Chloride 90 meq/Potassium Chloride 50 meq/ Potassium Phosphate 13.6 mmol/Magnesium Sulfate 10 meq/ Calcium Gluconate 10 meq/ Multivitamins 10 ml/Chromium/ Copper/Manganese/ Seleni/Zn 1 ml/ Total Parenteral Nutrition/Amino Acids/Dextrose/ Fat Emulsion Intravenous 1,512 ml @ 63 mls/hr TPN CONT IV ; Start 11/14/18 at 22:00; Stop 11/15/18 at 21:59; Status Cancel Lidocaine HCl (Buffered Lidocaine 1%) 3 ml STK-MED ONCE .ROUTE ; Start 11/14/18 at 14:17; Stop 11/14/18 at 14:18; Status DC Iohexol (Omnipaque 300 Mg/ml) 75 ml 1X ONCE IV Last administered on 11/15/18at 09:30; Start 11/15/18 at 09:15; Stop 11/15/18 at 09:16; Status DC Info (CONTRAST GIVEN -- Rx MONITORING) 1 each PRN DAILY PRN MC SEE COMMENTS; Start 11/15/18 at 09:15; Stop 11/17/18 at 09:14; Status DC Lidocaine HCl (Buffered Lidocaine 1%) 3 ml STK-MED ONCE .ROUTE ; Start 11/15/18 at 11:16; Stop 11/15/18 at 11:16; Status DC Heparin Sodium (Porcine) (Hep Lock Adult) 500 unit STK-MED ONCE .ROUTE ; Start 11/15/18 at 11:16; Stop 11/15/18 at 11:16; Status DC Lidocaine HCl (Buffered Lidocaine 1%) 3 ml 1X ONCE IJ Last administered on 11/15/18at 11:30; Start 11/15/18 at 11:30; Stop 11/15/18 at 11:31; Status DC Fentanyl Citrate (Fentanyl 2ml Vial) 100 mcg 1X ONCE IV Last administered on 11/15/18at 11:30; Start 11/15/18 at 11:30; Stop 11/15/18 at 11:31; Status DC Heparin Sodium (Porcine) (Hep Lock Adult) 500 unit 1X ONCE IVP Last administered on 11/15/18at 11:30; Start 11/15/18 at 11:30; Stop 11/15/18 at 11:31; Status DC Fentanyl Citrate (Fentanyl 2ml Vial) 100 mcg STK-MED ONCE .ROUTE ; Start 11/15/18 at 11:19; Stop 11/15/18 at 11:19; Status DC Lidocaine HCl (Buffered Lidocaine 1%) 3 ml STK-MED ONCE .ROUTE ; Start 11/15/18 at 12:02; Stop 11/15/18 at 12:02; Status DC Sodium Chloride 90 meq/Potassium Chloride 50 meq/ Potassium Phosphate 13.6 mmol/Magnesium Sulfate 10 meq/ Calcium Gluconate 10 meq/ Multivitamins 10 ml/Chromium/ Copper/Manganese/ Seleni/Zn 1 ml/ Total Parenteral Nutrition/Amino Acids/Dextrose/ Fat Emulsion Intravenous 1,008 ml @ 42 mls/hr TPN CONT IV Last administered on 11/15/18at 23:33; Start 11/15/18 at 22:00; Stop 11/16/18 at 21:59; Status DC Simethicone (Gas-X) 80 mg [id number] PRN PO GAS / BLOATING; Start 11/15/18 at 16:45 Morphine Sulfate (Roxanol Conc) 5 mg PRN Q3HRS PRN SL MODERATE TO SEVERE PAIN Last administered on 11/16/18at 10:21; Start 11/16/18 at 09:15; Stop 11/16/18 at 11:27; Status DC Hydrocortisone Sodium Succinate (Solu-CORTEF) 100 mg 1X ONCE IV Last administered on 11/16/18at 11:45; Start 11/16/18 at 11:30; Stop 11/16/18 at 11:31; Status DC Diphenhydramine HCl (Benadryl) 25 mg PRN Q24HRS PRN IVP ITCHING Last administered on 11/16/18at 11:47; Start 11/16/18 at 11:30 Sodium Chloride 90 meq/Potassium Chloride 50 meq/ Potassium Phosphate 13.6 mmol/Magnesium Sulfate 10 meq/ Calcium Gluconate 10 meq/ Multivitamins 10 ml/Chromium/ Copper/Manganese/ Seleni/Zn 1 ml/ Total Parenteral Nutrition/Amino Acids/Dextrose/ Fat Emulsion Intravenous 1,008 ml @ 42 mls/hr TPN CONT IV Last administered on 11/16/18at 21:41; Start 11/16/18 at 22:00; Stop 11/17/18 at 21:59; Status DC Insulin Glargine (Lantus Syringe) 5 unit QHS SQ Last administered on 11/16/18at 21:40; Start 11/16/18 at 21:00 Sodium Chloride 90 meq/Potassium Chloride 50 meq/ Potassium Phosphate 13.6 mmol/Magnesium Sulfate 10 meq/ Calcium Gluconate 10 meq/ Multivitamins 10 ml/Chromium/ Copper/Manganese/ Seleni/Zn 1 ml/ Total Parenteral Nutrition/Amino Acids/Dextrose/ Fat Emulsion Intravenous 1,008 ml @ 42 mls/hr TPN CONT IV Last administered on 11/17/18at 21:49; Start 11/17/18 at 22:00; Stop 11/18/18 at 21:59; Status DC Sodium Chloride 90 meq/Potassium Chloride 50 meq/ Potassium Phosphate 13.6 mmol/Magnesium Sulfate 10 meq/ Calcium Gluconate 10 meq/ Multivitamins 10 ml/Chromium/ Copper/Manganese/ Seleni/Zn 1 ml/ Total Parenteral Nutrition/Amino Acids/Dextrose/ Fat Emulsion Intravenous 1,008 ml @ 42 mls/hr TPN CONT IV Last administered on 11/18/18at 21:10; Start 11/18/18 at 22:00; Stop 11/19/18 at 21:59 Active Scripts Active Reported Albuterol Sulfate Neb Soln (Albuterol Sulfate) 2.5 Mg/3 Ml Vial.neb 1 Vial NEB QID Hydrocodone-Apap 7.5-325/15 Soln (Hydrocodone Bit/Acetaminophen) 15 Ml Solution 15 Ml PO PRN Q6HRS PRN Levemir (Insulin Detemir) 100 Unit/1 Ml Vial 5 Unit SQ HS Vitals/I & O Vital Sign - Last 24 Hours 11/18/18 11/18/18 11/18/1811/19 09:12 09:55 11:00 12:03 Temp 97.8 97.8 Pulse 100 Resp 16 B/P (MAP) 150/76 (100) Pulse Ox 97 O2 Delivery Room Air Room Air Room Air Room Air 11/18/18 11/18/18 11/18/18 11/18/18 13:49 14:00 15:00 15:21 Temp 98.2 98.2 Pulse 90 Resp 16 B/P (MAP) 100/54 (69) Pulse Ox 94 O2 Delivery Room Air Room Air Room Air Room Air 11/18/18 11/18/18 11/18/18 11/18/18 16:22 16:45 18:48 19:00 Temp 98.1 98.1 Pulse 90 Resp 20 B/P (MAP) 110/50 (70) Pulse Ox 94 96 O2 Delivery Room Air Room Air Room Air Room Air 11/18/18 11/18/18 11/18/18 11/18/18 20:00 20:00 20:03 21:50 Resp 18 Pulse Ox 97 97 O2 Delivery Room Air Room Air Room Air Room Air O2 Flow Rate 2.0 2.0 11/18/18 11/18/18 11/19/18 11/19/18 22:30 23:00 03:00 03:05 Temp 98.1 97.6 98.4 98.1 97.6 98.4 Pulse 87 80 83 Resp 20 20 20 20 B/P (MAP) 112/46 (68) 137/85 (102) 106/41 (62) Pulse Ox 98 98 97 94 O2 Delivery Room Air Room Air Room Air Room Air 11/19/18 11/19/18 11/19/18 11/19/18 04:06 04:41 07:00 07:21 Temp 98.2 98.2 Pulse 93 Resp 18 18 16 B/P (MAP) 113/60 (77) Pulse Ox 94 97 97 O2 Delivery Room Air Room Air Room Air Room Air O2 Flow Rate 2.0 11/19/18 11/19/18 07:42 08:31 Pulse Ox 97 97 O2 Delivery Room Air Room Air O2 Flow Rate 2.0 2.0 Nutrition Consultation Dietary Evaluation: Recommendations by RD: PPN/TPN Comments: TPN day 4: 160 g dextrose, 45 g AA, 20 g lipid - continue rec continue clear liquds, encourage clear supplements prn Expected Outcomes/Goals: to meet > 75% est nutr needs via TPN and po intake - met via TPN, goal ongoing Malnutrition Findings: Muscle Mass (Severe): Severe Depletion Food and Nutrition Intake (Sev: <50% est energy req 5days Weight Status: Underweight TERRI MARTINS MD Nov 19, 2018 09:09
--- NOTE | 2018-11-19 09:39 | PN ---
DATE: 11/19/2018 SUBJECTIVE: The patient is resting, sitting at the edge of the bed, comfortably in no apparent distress. On questioning her, denied any complaint. Apparently, arrangement has been made for her to be accepted for hospice. Medicaid pending and that will secure some funds for her TPN while the application for Medicaid is pursued. PHYSICAL EXAMINATION: GENERAL: When I saw her this morning, she looked well and was clearly in no apparent respiratory distress. No pallor, jaundice, cyanosis, or thyromegaly. No jugular venous distension. No lower limb edema. VITAL SIGNS: Her heart rate was 93, blood pressure was 113/60, temperature was 98.2, respiratory rate was 16, and oxygen saturation was 97%. The rest of clinical examination is stable. Her intake and output were incompletely recorded. LABORATORY DATA: Her lab work as of yesterday showed a white cell count 6100, hemoglobin 10, hematocrit 31, MCV 90 and platelet count 322,000. Her blood sugar seems to be reasonably controlled. ASSESSMENT: 1. Abnormal weight loss. 2. Dysphagia. 3. Esophageal dysfunction. 4. Esophageal stricture, status post stent deployment. 5. Metastatic lung cancer, stage 3B non-small lung cancer. PLAN: To continue with TPN, continue with pain management and hopefully she will be discharged home on hospice on Wednesday. ARIANA WADSWORTH MD DR: MAXIMILIANO/karolina JOB#: [id number] / [id number]
[2018-11-19] MEDS: TPN PER PHARMACY MC PRN (11:39)
--- NOTE | 2018-11-19 11:40 | NUR ---
Pharmacy TPN Dosing Note S: ANITA JENNINGS is a 73 year old F Currently receiving Central Continuous TPN started 11/15/18 B:Pertinent PMH: Esophageal stricture r/t malignancy Height: 5 feet, 0 inches Weight: [id number] kg Current diet: CLD LABS: Sodium: 137 Potassium: 4.9 Chloride: 101 Calcium: 8.7 Corrected Calcium: 9.98 Magnesium: 1.9 CO2: 33 SCr: 0.4 Glucose: 286 Albumin: 2.4 AST: 9 ALT: 10 TPN FORMULA: TPN TYPE: Central Continuous AMINO ACIDS: 45 gm DEXTROSE: 160 gm LIPIDS: 20 gm SODIUM CHLORIDE: 90 mEq SODIUM ACETATE: - mEq SODIUM PHOSPHATE: - mmol POTASSIUM CHLORIDE: 50 mEq POTASSIUM ACETATE: - mEq POTASSIUM PHOSPHATE: 13.6 mmol MAGNESIUM: 10 mEq CALCIUM: 10 mEq INSULIN: - units MULTIPLE VITAMIN: 10 ml TRACE ELEMENTS: MTE5 1ML ml(s) TPN PLAN: -No new labs today, continue same TPN, will get labs for tomorrow as will discharge with TPN Wednesday -glucose 338, refused lantus last night, has ssi available R: Continue TPN as written above. Will monitor electrolytes, glucose, and tolerance to TPN. PAT JEWELL [facility] [place], 11/19/18 [id number]
[2018-11-19] MEDS: INSULIN GLARGINE SYRINGE. SQ SCH (21:32)
[2018-11-19] MEDS ORDERED: AMINO ACID IV SCH ×10 (22:00)
[2018-11-19] MEDS ORDERED: DEXTROSE 70% IV SCH ×10 (22:00)
[2018-11-19] MEDS ORDERED: [UNRECOGNIZED DRUG - OTHER] IV SCH ×10 (22:00)
[2018-11-19] MEDS ORDERED: TOTAL PARENTERAL NUTRITION IV SCH ×10 (22:00)
[2018-11-20] VITALS (7 sets, daily range): BP systolic 99–134; BP diastolic 57–61
[2018-11-20] MEDS: fentaNYL PF VIAL 100 MCG/2 ML VIAL IVP PRN ×6 (02:37→23:46)
[2018-11-20 05:47] LABS: CALCIUM 8.8 mg/dL (8.5-10.1); CREATININE 0.4 mg/dL (0.6-1.0); MAGNESIUM 1.8 mg/dL (1.8-2.4); PHOSPHORUS 3.5 mg/dL (2.6-4.7); POTASSIUM 4.8 mmol/L (3.5-5.1)
[2018-11-20] MEDS: ALBUTEROL SULFATE 2.5 MG/3 ML NEBU. NEB SCH ×4 (07:18→19:30)
[2018-11-20] MEDS: PANTOPRAZOLE IV PUSH 40 MG VIAL. IVP SCH (08:32)
[2018-11-20] MEDS: fentaNYL 12MCG/HR PATCH 1 PATCH PATCH.TD72 TD SCH (08:33)
[2018-11-20] MEDS: INSULIN LISPRO 300 UNITS/3 ML VIAL. SQ SCH ×3 (08:45→17:05)
--- NOTE | 2018-11-20 09:09 | PDOC ---
PROGRESS NOTES Subjective Subjective HPI -f/u of Stage IIIB Non-small cell lung cancer involving the left upper lobe ROS - stable dysphagia Objective Objective Vital Signs Date Time Temp Pulse Resp B/P (MAP) Pulse Ox O2 Delivery O2 Flow Rate FiO2 11/20/18 08:33 18 Room Air 11/20/18 07:19 96 11/20/18 03:00 97.7 92 99/57 (71) 97.7 11/19/18 13:58 2.0 Intake and Output 11/20/18 06:59 Intake Total 400 ml Balance 400 ml Intake Oral 400 ml # Voids 7 Physical Exam Heart: Normal S1, Normal S2 General: Alert, Oriented X3, No acute distress Lungs: Clear to auscultation Neuro: Normal speech Psych/Mental Status: Mental status NL Assessment Assessment Problems Medical Problems: (1) Abnormal weight loss Status: Chronic (2) Dysphagia Status: Acute (3) Esophageal dysfunction Status: Acute (4) Esophageal stricture Status: Acute (5) Malnutrition Status: Acute (6) Malnutrition Status: Acute (7) Metastatic lung cancer (metastasis from lung to other site) Status: Acute IMPRESSION AND PLAN: 1. Stage IIIB Non-small cell lung cancer involving the left upper lobe. PET scan on 07/28/2018 revealed a 2-cm spiculated nodule in the left upper lobe with contiguous hypermetabolic tissue within the mediastinum, involving both the right and left aspects of the upper mediastinum extending into the subcarinal lymph node suggesting confluent adenopathy. There is hypermetabolic right subclavian level nodule. Small peripheral 1 cm spiculated density abutting the pleura and the posterior lateral aspect of the right upper lobe and a small nodule in the left upper lobe are also noted (could be inflammatory). She underwent right supraclavicular lymph node biopsy on 08/25/2018 and there was not enough tissue to check for biomarkers. She was referred to for further biomarker testing. She underwent radiation therapy to the central mediastinum and esophagus from 09/28/2018 through 10/12/[address] chest: 11/15/18: Decrease in size of primary left upper lobe mass previously measuring 2.2 x 1.3 cm and currently measuring 1.6 x 1.2 cm. No new or enlarging thoracic lymphadenopathy. Stable subpleural nodular opacity in the right upper lobe measuring 0.9 x 0.7 cm. Similar positioning of thoracic esophageal stent with debris noted. There is circumferential wall thickening involving the distal esophagus which may reflect esophagitis. Since there is no progression of the small RUL nodule, this could be old granulomatou disease, hence she likely has Stage IIIB lung cancer and I will plan for consolidation im munotherapy with Durvalumab as outpatient. She does not want chemo and agree. I d/w IR and with Dr Guthrie (), CT does not reveal any new changes for a safe bx. 2. Dysphagia, status post esophageal stent placement in 09/2018 and she completed palliative radiation therapy. However, she has persistent symptoms and hence Gastroenterology was consulted, who suggested considering feeding tube placement at [facility]. She d/w Dr Rubi and started TPN for nutrition. s/p Successful ultrasound and fluoroscopically guided placement of a left internal jugular tunneled central venous catheter 11/15/18. 3. Pain. She is on Fentanyl patch. Comment Review of Relevant I have reviewed the following items sky (where applicable) has been applied. Labs Laboratory Tests Test 11/18/18 11:36 11/18/18 14:53 11/18/18 16:44 11/18/18 20:18 Glucose (Fingerstick) 177 mg/dL (70-99) 259 mg/dL (70-99) 329 mg/dL (70-99) 153 mg/dL (70-99) Test 11/19/18 08:07 11/19/18 11:54 11/19/18 16:52 11/19/18 20:22 Glucose (Fingerstick) 338 mg/dL (70-99) 123 mg/dL (70-99) 276 mg/dL (70-99) 103 mg/dL (70-99) Test 11/20/18 02:35 11/20/18 05:00 11/20/18 07:32 Glucose (Fingerstick) 264 mg/dL (70-99) 285 mg/dL (70-99) Sodium Level 137 mmol/L (136-145) Potassium Level 4.8 mmol/L (3.5-5.1) Chloride Level 101 mmol/L (98-107) Carbon Dioxide Level 35 mmol/L (21-32) Anion Gap 1 (6-14) Blood Urea Nitrogen 12 mg/dL (7-20) Creatinine 0.4 mg/dL (0.6-1.0) Estimated GFR (Cockcroft-Gault) 156.0 Glucose Level 304 mg/dL (70-99) Calcium Level 8.8 mg/dL (8.5-10.1) Phosphorus Level 3.5 mg/dL (2.6-4.7) Magnesium Level 1.8 mg/dL (1.8-2.4) Laboratory Tests Test 11/19/18 11:54 11/19/18 16:52 11/19/18 20:22 11/20/18 02:35 Glucose (Fingerstick) 123 mg/dL (70-99) 276 mg/dL (70-99) 103 mg/dL (70-99) 264 mg/dL (70-99) Test 11/20/18 05:00 11/20/18 07:32 Sodium Level 137 mmol/L (136-145) Potassium Level 4.8 mmol/L (3.5-5.1) Chloride Level 101 mmol/L (98-107) Carbon Dioxide Level 35 mmol/L (21-32) Anion Gap 1 (6-14) Blood Urea Nitrogen 12 mg/dL (7-20) Creatinine 0.4 mg/dL (0.6-1.0) Estimated GFR (Cockcroft-Gault) 156.0 Glucose Level 304 mg/dL (70-99) Calcium Level 8.8 mg/dL (8.5-10.1) Phosphorus Level 3.5 mg/dL (2.6-4.7) Magnesium Level 1.8 mg/dL (1.8-2.4) Glucose (Fingerstick) 285 mg/dL (70-99) Medications Current Medications Sodium Chloride 1,000 ml @ 1,000 mls/hr 1X ONCE IV Last administered on 11/11/18at 12:23; Start 11/11/18 at 11:30; Stop 11/11/18 at 12:29; Status DC Ondansetron HCl (Zofran) 4 mg PRN Q8HRS PRN IV NAUSEA/VOMITING; Start 11/11/18 at 13:00; Stop 11/12/18 at 12:59; Status DC Acetaminophen/ Hydrocodone Bitart (Lortab 7.5-325/ 15ml Oral Solution) 15 ml 1X ONCE PO Last administered on 11/11/18 13:25; Start 11/11/18 at 13:15; Stop 11/11/18 at 13:16; Status DC Pantoprazole Sodium (PROTONIX VIAL for IV PUSH) 40 mg DAILYAC IVP Last administered on 11/20/18 08:32; Start 11/11/18 at 16:00 Albuterol Sulfate (Ventolin Neb Soln) 2.5 mg RTQID NEB Last administered on 11/20/18 07:18; Start 11/11/18 at 20:00 Acetaminophen/ Hydrocodone Bitart (Lortab 7.5-325/ 15ml Oral Solution) 15 ml PRN Q6HRS PRN PO PAIN Last administered on 11/11/18 20:26; Start 11/11/18 at 16:30 Albuterol Sulfate (Ventolin Neb Soln) 2.5 mg PRN Q4HRS PRN NEB SHORTNESS OF BREATH Last administered on 11/14/18 09:25; Start 11/11/18 at 16:30; Stop 11/15/18 at 21:59; Status DC Amino Acids/ Glycerin/ Electrolytes 1,000 ml @ 80 mls/hr [id number] IV Last administered on 11/15/18 17:28; Start 11/11/18 at 16:30; Stop 11/15/18 at 21:59; Status DC Insulin Human Lispro (HumaLOG) 0-5 UNITS TIDWMEALS SQ Last administered on 11/20/18 08:45; Start 11/11/18 at 17:00 Dextrose (Dextrose 50%-Water Syringe) 12.5 gm PRN Q15MIN PRN IV SEE COMMENTS; Start 11/11/18 at 16:30 Fentanyl Citrate (Fentanyl 2ml Vial) 25 mcg PRN Q3HRS PRN IVP PAIN Last administered on 11/20/18 05:25; Start 11/12/18 at 06:45 Fentanyl (Duragesic 12mcg/ Hr Patch) 1 patch Q3DAYS TD Last administered on 11/12/18 18:06; Start 11/12/18 at 12:00; Stop 11/14/18 at 01:46; Status DC Magnesium Hydroxide (Milk Of Magnesia) 2,400 mg PRN DAILY PRN PO CONSTIPATION; Start 11/13/18 at 16:45 Fentanyl (Duragesic 12mcg/ Hr Patch) 1 patch 1X ONCE TD Last administered on 11/14/18at 02:37; Start 11/14/18 at 02:00; Stop 11/14/18 at 02:01; Status DC Fentanyl (Duragesic 12mcg/ Hr Patch) 1 patch Q3DAYS TD Last administered on 11/20/18at 08:33; Start 11/17/18 at 09:00 Info (Tpn Per Pharmacy) 1 each PRN DAILY PRN MC SEE COMMENTS Last administered on 11/19/18at 11:39; Start 11/14/18 at 14:30 Sodium Chloride 90 meq/Potassium Chloride 50 meq/ Potassium Phosphate 13.6 mmol/Magnesium Sulfate 10 meq/ Calcium Gluconate 10 meq/ Multivitamins 10 ml/Chromium/ Copper/Manganese/ Seleni/Zn 1 ml/ Total Parenteral Nutrition/Amino Acids/Dextrose/ Fat Emulsion Intravenous 1,512 ml @ 63 mls/hr TPN CONT IV ; Start 11/14/18 at 22:00; Stop 11/15/18 at 21:59; Status Cancel Lidocaine HCl (Buffered Lidocaine 1%) 3 ml STK-MED ONCE .ROUTE ; Start 11/14/18 at 14:17; Stop 11/14/18 at 14:18; Status DC Iohexol (Omnipaque 300 Mg/ml) 75 ml 1X ONCE IV Last administered on 11/15/18at 09:30; Start 11/15/18 at 09:15; Stop 11/15/18 at 09:16; Status DC Info (CONTRAST GIVEN -- Rx MONITORING) 1 each PRN DAILY PRN MC SEE COMMENTS; Start 11/15/18 at 09:15; Stop 11/17/18 at 09:14; Status DC Lidocaine HCl (Buffered Lidocaine 1%) 3 ml STK-MED ONCE .ROUTE ; Start 11/15/18 at 11:16; Stop 11/15/18 at 11:16; Status DC Heparin Sodium (Porcine) (Hep Lock Adult) 500 unit STK-MED ONCE .ROUTE ; Start 11/15/18 at 11:16; Stop 11/15/18 at 11:16; Status DC Lidocaine HCl (Buffered Lidocaine 1%) 3 ml 1X ONCE IJ Last administered on 11/15/18at 11:30; Start 11/15/18 at 11:30; Stop 11/15/18 at 11:31; Status DC Fentanyl Citrate (Fentanyl 2ml Vial) 100 mcg 1X ONCE IV Last administered on 11/15/18at 11:30; Start 11/15/18 at 11:30; Stop 11/15/18 at 11:31; Status DC Heparin Sodium (Porcine) (Hep Lock Adult) 500 unit 1X ONCE IVP Last administered on 11/15/18at 11:30; Start 11/15/18 at 11:30; Stop 11/15/18 at 11:31; Status DC Fentanyl Citrate (Fentanyl 2ml Vial) 100 mcg STK-MED ONCE .ROUTE ; Start 11/15/18 at 11:19; Stop 11/15/18 at 11:19; Status DC Lidocaine HCl (Buffered Lidocaine 1%) 3 ml STK-MED ONCE .ROUTE ; Start 11/15/18 at 12:02; Stop 11/15/18 at 12:02; Status DC Sodium Chloride 90 meq/Potassium Chloride 50 meq/ Potassium Phosphate 13.6 mmol/Magnesium Sulfate 10 meq/ Calcium Gluconate 10 meq/ Multivitamins 10 ml/Chromium/ Copper/Manganese/ Seleni/Zn 1 ml/ Total Parenteral Nutrition/Amino Acids/Dextrose/ Fat Emulsion Intravenous 1,008 ml @ 42 mls/hr TPN CONT IV Last administered on 11/15/18at 23:33; Start 11/15/18 at 22:00; Stop 11/16/18 at 21:59; Status DC Simethicone (Gas-X) 80 mg [id number] PRN PO GAS / BLOATING; Start 11/15/18 at 16:45 Morphine Sulfate (Roxanol Conc) 5 mg PRN Q3HRS PRN SL MODERATE TO SEVERE PAIN Last administered on 11/16/18at 10:21; Start 11/16/18 at 09:15; Stop 11/16/18 at 11:27; Status DC Hydrocortisone Sodium Succinate (Solu-CORTEF) 100 mg 1X ONCE IV Last administered on 11/16/18at 11:45; Start 11/16/18 at 11:30; Stop 11/16/18 at 11:31; Status DC Diphenhydramine HCl (Benadryl) 25 mg PRN Q24HRS PRN IVP ITCHING Last administered on 11/16/18at 11:47; Start 11/16/18 at 11:30 Sodium Chloride 90 meq/Potassium Chloride 50 meq/ Potassium Phosphate 13.6 mmol/Magnesium Sulfate 10 meq/ Calcium Gluconate 10 meq/ Multivitamins 10 ml/Chromium/ Copper/Manganese/ Seleni/Zn 1 ml/ Total Parenteral Nutrition/Amino Acids/Dextrose/ Fat Emulsion Intravenous 1,008 ml @ 42 mls/hr TPN CONT IV L ast administered on 11/16/18at 21:41; Start 11/16/18 at 22:00; Stop 11/17/18 at 21:59; Status DC Insulin Glargine (Lantus Syringe) 5 unit QHS SQ Last administered on 11/19/18at 21:32; Start 11/16/18 at 21:00 Sodium Chloride 90 meq/Potassium Chloride 50 meq/ Potassium Phosphate 13.6 mmol/Magnesium Sulfate 10 meq/ Calcium Gluconate 10 meq/ Multivitamins 10 ml/Chromium/ Copper/Manganese/ Seleni/Zn 1 ml/ Total Parenteral Nutrition/Amino Acids/Dextrose/ Fat Emulsion Intravenous 1,008 ml @ 42 mls/hr TPN CONT IV Last administered on 11/17/18at 21:49; Start 11/17/18 at 22:00; Stop 11/18/18 at 21:59; Status DC Sodium Chloride 90 meq/Potassium Chloride 50 meq/ Potassium Phosphate 13.6 mmol/Magnesium Sulfate 10 meq/ Calcium Gluconate 10 meq/ Multivitamins 10 ml /Chromium/ Copper/Manganese/ Seleni/Zn 1 ml/ Total Parenteral Nutrition/Amino Acids/Dextrose/ Fat Emulsion Intravenous 1,008 ml @ 42 mls/hr TPN CONT IV Last administered on 11/18/18at 21:10; Start 11/18/18 at 22:00; Stop 11/19/18 at 21:59; Status DC Sodium Chloride 90 meq/Potassium Chloride 50 meq/ Potassium Phosphate 13.6 mmol/Magnesium Sulfate 10 meq/ Calcium Gluconate 10 meq/ Multivitamins 10 ml/Chromium/ Copper/Manganese/ Seleni/Zn 1 ml/ Total Parenteral Nutrition/Amino Acids/Dextrose/ Fat Emulsion Intravenous 1,008 ml @ 42 mls/hr TPN CONT IV Last administered on 11/19/18at 21:21; Start 11/19/18 at 22:00; Stop 11/20/18 at 21:59 Active Scripts Active Reported Albuterol Sulfate Neb Soln (Albuterol Sulfate) 2.5 Mg/3 Ml Vial.neb 1 Vial NEB QID Hydrocodone-Apap 7.5-325/15 Soln (Hydrocodone Bit/Acetaminophen) 15 Ml Solution 15 Ml PO PRN Q6HRS PRN Levemir (Insulin Detemir) 100 Unit/1 Ml Vial 5 Unit SQ HS Vitals/I & O Vital Sign - Last 24 Hours 11/19/18 11/19/18 11/19/18 11/19/18 10:48 11:00 11:19 13:58 Temp 97.8 97.8 Pulse 98 Resp 16 B/P (MAP) 121/64 (83) Pulse Ox 97 98 98 O2 Delivery Room Air Room Air Room Air Room Air O2 Flow Rate 2.0 2.0 11/19/18 11/19/18 11/19/18 11/19/18 15:00 15:45 17:31 19:00 Temp 98.2 97.9 98.2 97.9 Pulse 89 84 Resp 18 18 B/P (MAP) 136/62 (86) 121/67 (85) Pulse Ox 100 99 O2 Delivery Room Air Room Air Room Air Room Air 11/19/18 11/19/18 11/19/18 11/19/18 20:00 20:01 20:15 23:00 Temp 97.5 97.5 Pulse 86 Resp 20 12 B/P (MAP) 109/59 (76) Pulse Ox 100 96 97 O2 Delivery Room Air Room Air Room Air Room Air 11/20/18 11/20/18 11/20/18 11/20/18 03:00 07:19 08:30 08:33 Temp 97.7 97.7 Pulse 92 Resp 20 18 B/P (MAP) 99/57 (71) Pulse Ox 97 96 O2 Delivery Room Air Room Air Room Air Room Air Intake and Output 11/19/18 11/19/18 11/20/18 14:59 22:59 06:59 Intake Total 400 ml Balance 400 ml Nutrition Consultation Dietary Evaluation: Recommendations by RD: PPN/TPN Comments: TPN day 4: 160 g dextrose, 45 g AA, 20 g lipid - continue rec continue clear liquds, encourage clear supplements prn Expected Outcomes/Goals: to meet > 75% est nutr needs via TPN and po intake - met via TPN, goal ongoing Malnutrition Findings: Muscle Mass (Severe): Severe Depletion Food and Nutrition Intake (Sev: <50% est energy req 5days Weight Status: Underweight TERRI MARTINS MD Nov 20, 2018 09:09
[2018-11-20] MEDS ORDERED: DEXTROSE 50% 25 GM / 50ML DISP.SYRIN. IV PRN (10:00)
[2018-11-20] MEDS: TPN PER PHARMACY MC PRN (11:35)
--- NOTE | 2018-11-20 11:35 | PN ---
DATE: 11/20/2018 SUBJECTIVE: The patient is resting, slightly propped up in bed, in no apparent respiratory distress. She is awake, alert, complaining of some discomfort in her left arm, some itching around her PICC line. Overall, she is doing very well. Currently, the [employer] has to come and discuss with them, teach them also to ____ supplies to their house and seems that tomorrow is a holiday. PHYSICAL EXAMINATION: GENERAL: When I examined her, she looked pale, cachectic, but no jaundice, cyanosis or thyromegaly. No jugular venous distension. No lower limb edema. VITAL SIGNS: Her heart rate was 87, blood pressure was 126/61, temperature was 98, respiratory rate was 18 and oxygen saturation was 99%. The rest of clinical exam stable, has not really changed. Her intake was 1880, no output was recorded. LABORATORY DATA: Her lab work stable. As of this morning, her serum sodium 137, potassium was 4.8, chloride 101, bicarbonate 35, anion gap of 1, BUN 12, creatinine 0.4, estimated GFR was 56 mL per minute. Her glucose was 88, phosphorus was 3.5, magnesium was 1.8. ASSESSMENT: 1. Abnormal weight loss. 2. Dysphagia. 3. Esophageal dysfunction. 4. Esophageal stricture, status post stent deployment. 5. Metastatic lung cancer stage 3B non-small lung cancer. 6. Type 2 diabetes mellitus, suboptimally controlled. PLAN: My plan is to start her on low-dose sliding scale every 6 hours. Meanwhile, continue with her current dose of Levemir, and if arrangement has been made with the home health and the ____, then she can be discharged home tomorrow. ARIANA WADSWORTH MD DR: MAXIMILIANO/karolina JOB#: [id number] / [id number]
--- NOTE | 2018-11-20 11:36 | NUR ---
Pharmacy TPN Dosing Note S: ANITA JENNINGS is a 73 year old F Currently receiving Central Continuous TPN started 11/15/18 B:Pertinent PMH: Esophageal stricture r/t malignancy Height: 5 feet, 0 inches Weight: 32.488685 kg Current diet: CLD LABS: Sodium: 137 Potassium: 4.8 Chloride: 101 Calcium: 8.8 Corrected Calcium: 10.08 Magnesium: 1.8 CO2: 35 SCr: 0.4 Glucose: 103-304 Albumin: 2.4 AST: 9 ALT: 10 TPN FORMULA: TPN TYPE: Central Continuous AMINO ACIDS: 45 gm DEXTROSE: 160 gm LIPIDS: 20 gm SODIUM CHLORIDE: 90 mEq SODIUM ACETATE: - mEq SODIUM PHOSPHATE: - mmol POTASSIUM CHLORIDE: 50 mEq POTASSIUM ACETATE: - mEq POTASSIUM PHOSPHATE: 13.6 mmol MAGNESIUM: 10 mEq CALCIUM: 10 mEq INSULIN: - units MULTIPLE VITAMIN: 10 ml TRACE ELEMENTS: MTE5 1ML ml(s) TPN PLAN: -Labs stable, no changes to TPN -Plan to dc tomorrow on tpn R: Continue TPN as written above. Will monitor electrolytes, glucose, and tolerance to TPN. PAT JEWELL [facility], 11/20/18 [id number]
[2018-11-20] MEDS ORDERED: INSULIN LISPRO 300 UNITS/3 ML VIAL. SQ SCH (12:00)
--- NOTE | 2018-11-20 14:46 | RAD ---
CHEST AP ONLY History: Increasing shortness of breath, chest discomfort Comparison: 11/13/2018 Findings: Single view of the chest is submitted. There is again esophageal stent similar position. There is again left internal jugular port catheter with the tip in the superior vena cava. Cardiac silhouette is stable. There is no pneumothorax or significant dependent pleural fluid. There is increased interstitial opacity bilaterally with basilar predominance. There is no new lobar consolidation. There is emphysema. Impression: 1. There is some increased interstitial opacity bilaterally with basilar predominance which may be due to edema or infiltrate, no new lobar infiltrate. 2. There is again esophageal stent. 3. There is emphysema. Electronically signed by: Jayme De Leon MD (11/20/2018 2:43 PM) [facility]
[2018-11-20] MEDS ORDERED: [UNRECOGNIZED DRUG - OTHER] IV SCH ×10 (22:00)
[2018-11-20] MEDS ORDERED: TOTAL PARENTERAL NUTRITION IV SCH ×10 (22:00)
[2018-11-20] MEDS ORDERED: DEXTROSE 70% IV SCH ×10 (22:00)
[2018-11-20] MEDS ORDERED: AMINO ACID IV SCH ×10 (22:00)
[2018-11-20] MEDS: INSULIN GLARGINE SYRINGE. SQ SCH (22:23)
[2018-11-21] MEDS: fentaNYL PF VIAL 100 MCG/2 ML VIAL IVP PRN ×5 (02:47→15:31)
[2018-11-21 03:00] VITALS: BP 114/46
[2018-11-21 07:00] VITALS: BP 165/57
[2018-11-21] MEDS: INSULIN LISPRO 300 UNITS/3 ML VIAL. SQ SCH ×2 (08:00→12:18)
[2018-11-21] MEDS: ALBUTEROL SULFATE 2.5 MG/3 ML NEBU. NEB SCH ×3 (08:26→15:30)
--- NOTE | 2018-11-21 09:04 | PDOC ---
PROGRESS NOTES Subjective Subjective HPI - f/u of Stage IIIB Non-small cell lung cancer involving the left upper lobe ROS - stable dysphagia Objective Objective Vital Signs Date Time Temp Pulse Resp B/P (MAP) Pulse Ox O2 Delivery O2 Flow Rate FiO2 11/21/18 08:27 98 Room Air 11/21/18 07:00 98.3 96 18 165/57 (93) 98.3 11/21/18 03:00 2.0 Intake and Output 11/21/18 06:59 Intake Total 120 ml Balance 120 ml Intake Oral 120 ml # Voids 4 Physical Exam Heart: Normal S1, Normal S2 General: Alert, Oriented X3 Lungs: Clear to auscultation Neuro: Normal speech Psych/Mental Status: Mental status NL Assessment Assessment Problems Medical Problems: (1) Abnormal weight loss Status: Chronic (2) Dysphagia Status: Acute (3) Esophageal dysfunction Status: Acute (4) Esophageal stricture Status: Acute (5) Malnutrition Status: Acute (6) Malnutrition Status: Acute (7) Metastatic lung cancer (metastasis from lung to other site) Status: Acute IMPRESSION AND PLAN: 1. Stage IIIB Non-small cell lung cancer involving the left upper lobe. PET scan on 07/28/2018 revealed a 2-cm spiculated nodule in the left upper lobe with contiguous hypermetabolic tissue within the mediastinum, involving both the right and left aspects of the upper mediastinum extending into the subcarinal lymph node suggesting confluent adenopathy. There is hypermetabolic right subclavian level nodule. Small peripheral 1 cm spiculated density abutting the pleura and the posterior lateral aspect of the right upper lobe and a small nodule in the left upper lobe are also noted (could be inflammatory). She underwent right supraclavicular lymph node biopsy on 08/25/2018 and there was not enough tissue to check for biomarkers. She was referred to for further biomarker testing. She underwent radiation therapy to the central mediastinum and esophagus from 09/28/2018 through 10/12/[address] chest: 11/15/18: Decrease in size of primary left upper lobe mass previously measuring 2.2 x 1.3 cm and currently measuring 1.6 x 1.2 cm. No new or enlarging thoracic lymphadenopathy. Stable subpleural nodular opacity in the right upper lobe measuring 0.9 x 0.7 cm. Similar positioning of thoracic esophageal stent with debris noted. There is circumferential wall thickening involving the distal esophagus which may reflect esophagitis. Since there is no progression of the small RUL nodule, this could be old granulomatous disease, hence she likely has Stage IIIB lung cancer and I will plan for consolidation immunotherapy with Durvalumab as outpatient. She does not want chemo and I agree. I d/w IR and with Dr Guthrie (), CT does not reveal any new changes for a safe bx. f/u with me in 2 weeks. 2. Dysphagia, status post esophageal stent placement in 09/2018 and she completed palliative radiation therapy. However, she has persistent symptoms and hence Gastroenterology was consulted, who suggested considering feeding tube placement at [facility]. She d/w Dr Rubi and started TPN for nutrition. s/p Successful ultrasound and fluoroscopically guided placement of a left internal jugular tunneled central venous catheter 11/15/18. 3. Pain. She is on Fentanyl patch. Comment Review of Relevant I have reviewed the following items sky (where applicable) has been applied. Labs Laboratory Tests Test 11/19/18 11:54 11/19/18 16:52 11/19/18 20:22 11/20/18 02:35 Glucose (Fingerstick) 123 mg/dL (70-99) 276 mg/dL (70-99) 103 mg/dL (70-99) 264 mg/dL (70-99) Test 11/20/18 05:00 11/20/18 07:32 11/20/18 11:05 11/20/18 15:41 Sodium Level 137 mmol/L (136-145) Potassium Level 4.8 mmol/L (3.5-5.1) Chloride Level 101 mmol/L (98-107) Carbon Dioxide Level 35 mmol/L (21-32) Anion Gap 1 (6-14) Blood Urea Nitrogen 12 mg/dL (7-20) Creatinine 0.4 mg/dL (0.6-1.0) Estimated GFR (Cockcroft-Gault) 156.0 Glucose Level 304 mg/dL (70-99) Calcium Level 8.8 mg/dL (8.5-10.1) Phosphorus Level 3.5 mg/dL (2.6-4.7) Magnesium Level 1.8 mg/dL (1.8-2.4) Glucose (Fingerstick) 285 mg/dL (70-99) 149 mg/dL (70-99) 274 mg/dL (70-99) Test 11/20/18 16:57 11/20/18 20:33 11/20/18 23:50 11/21/18 06:00 Glucose (Fingerstick) 331 mg/dL (70-99) 183 mg/dL (70-99) 202 mg/dL (70-99) Magnesium Level 1.8 mg/dL (1.8-2.4) Test 11/21/18 06:11 Glucose (Fingerstick) 200 mg/dL (70-99) Laboratory Tests Test 11/20/18 11:05 11/20/18 15:41 11/20/18 16:57 11/20/18 20:33 Glucose (Fingerstick) 149 mg/dL (70-99) 274 mg/dL (70-99) 331 mg/dL (70-99) 183 mg/dL (70-99) Test 11/20/18 23:50 11/21/18 06:00 11/21/18 06:11 Glucose (Fingerstick) 202 mg/dL (70-99) 200 mg/dL (70-99) Magnesium Level 1.8 mg/dL (1.8-2.4) Medications Current Medications Sodium Chloride 1,000 ml @ 1,000 mls/hr 1X ONCE IV Last administered on at 12:23; Start 11/11/18 at 11:30; Stop 11/11/18 at 12:29; Status DC Ondansetron HCl (Zofran) 4 mg PRN Q8HRS PRN IV NAUSEA/VOMITING; Start 11/11/18 at 13:00; Stop 11/12/18 at 12:59; Status DC Acetaminophen/ Hydrocodone Bitart (Lortab 7.5-325/ 15ml Oral Solution) 15 ml 1X ONCE PO Last administered on 11/11/18at 13:25; Start 11/11/18 at 13:15; Stop 11/11/18 at 13:16; Status DC Pantoprazole Sodium (PROTONIX VIAL for IV PUSH) 40 mg DAILYAC IVP Last administered on 11/20/18at 08:32; Start 11/11/18 at 16:00 Albuterol Sulfate (Ventolin Neb Soln) 2.5 mg RTQID NEB Last administered on 11/21/18 08:26; Start 11/11/18 at 20:00 Acetaminophen/ Hydrocodone Bitart (Lortab 7.5-325/ 15ml Oral Solution) 15 ml PRN Q6HRS PRN PO PAIN Last administered on 11/11/18 20:26; Start 11/11/18 at 16:30 Albuterol Sulfate (Ventolin Neb Soln) 2.5 mg PRN Q4HRS PRN NEB SHORTNESS OF BREATH Last administered on 11/14/18 09:25; Start 11/11/18 at 16:30; Stop 11/15/18 at 21:59; Status DC Amino Acids/ Glycerin/ Electrolytes 1,000 ml @ 80 mls/hr [id number] IV Last administered on 11/15/18 17:28; Start 11/11/18 at 16:30; Stop 11/15/18 at 21:59; Status DC Insulin Human Lispro (HumaLOG) 0-5 UNITS TIDWMEALS SQ Last administered on 11/20/18 17:05; Start 11/11/18 at 17:00 Dextrose (Dextrose 50%-Water Syringe) 12.5 gm PRN Q15MIN PRN IV SEE COMMENTS; Start 11/11/18 at 16:30 Fentanyl Citrate (Fentanyl 2ml Vial) 25 mcg PRN Q3HRS PRN IVP PAIN Last administered on 11/21/18 05:53; Start 11/12/18 at 06:45 Fentanyl (Duragesic 12mcg/ Hr Patch) 1 patch Q3DAYS TD Last administered on 11/12/18 18:06; Start 11/12/18 at 12:00; Stop 11/14/18 at 01:46; Status DC Magnesium Hydroxide (Milk Of Magnesia) 2,400 mg PRN DAILY PRN PO CONSTIPATION; Start 11/13/18 at 16:45 Fentanyl (Duragesic 12mcg/ Hr Patch) 1 patch 1X ONCE TD Last administered on 11/14/18 02:37; Start 11/14/18 at 02:00; Stop 11/14/18 at 02:01; Status DC Fentanyl (Duragesic 12mcg/ Hr Patch) 1 patch Q3DAYS TD Last administered on 11/20/18 08:33; Start 11/17/18 at 09:00 Info (Tpn Per Pharmacy) 1 each PRN DAILY PRN MC SEE COMMENTS Last administered on 11/20/18at 11:35; Start 11/14/18 at 14:30 Sodium Chloride 90 meq/Potassium Chloride 50 meq/ Potassium Phosphate 13.6 mmol/Magnesium Sulfate 10 meq/ Calcium Gluconate 10 meq/ Multivitamins 10 ml/Chromium/ Copper/Manganese/ Seleni/Zn 1 ml/ Total Parenteral Nutrition/Amino Acids/Dextrose/ Fat Emulsion Intravenous 1,512 ml @ 63 mls/hr TPN CONT IV ; Start 11/14/18 at 22:00; Stop 11/15/18 at 21:59; Status Cancel Lidocaine HCl (Buffered Lidocaine 1%) 3 ml STK-MED ONCE .ROUTE ; Start 11/14/18 at 14:17; Stop 11/14/18 at 14:18; Status DC Iohexol (Omnipaque 300 Mg/ml) 75 ml 1X ONCE IV Last administered on 11/15/18at 09:30; Start 11/15/18 at 09:15; Stop 11/15/18 at 09:16; Status DC Info (CONTRAST GIVEN -- Rx MONITORING) 1 each PRN DAILY PRN MC SEE COMMENTS; Start 11/15/18 at 09:15; Stop 11/17/18 at 09:14; Status DC Lidocaine HCl (Buffered Lidocaine 1%) 3 ml STK-MED ONCE .ROUTE ; Start 11/15/18 at 11:16; Stop 11/15/18 at 11:16; Status DC Heparin Sodium (Porcine) (Hep Lock Adult) 500 unit STK-MED ONCE .ROUTE ; Start 11/15/18 at 11:16; Stop 11/15/18 at 11:16; Status DC Lidocaine HCl (Buffered Lidocaine 1%) 3 ml 1X ONCE IJ Last administered on 11/15/18at 11:30; Start 11/15/18 at 11:30; Stop 11/15/18 at 11:31; Status DC Fentanyl Citrate (Fentanyl 2ml Vial) 100 mcg 1X ONCE IV Last administered on 11/15/18at 11:30; Start 11/15/18 at 11:30; Stop 11/15/18 at 11:31; Status DC Heparin Sodium (Porcine) (Hep Lock Adult) 500 unit 1X ONCE IVP Last adminis tered on 11/15/18at 11:30; Start 11/15/18 at 11:30; Stop 11/15/18 at 11:31; Status DC Fentanyl Citrate (Fentanyl 2ml Vial) 100 mcg STK-MED ONCE .ROUTE ; Start 11/15/18 at 11:19; Stop 11/15/18 at 11:19; Status DC Lidocaine HCl (Buffered Lidocaine 1%) 3 ml STK-MED ONCE .ROUTE ; Start 11/15/18 at 12:02; Stop 11/15/18 at 12:02; Status DC Sodium Chloride 90 meq/Potassium Chloride 50 meq/ Potassium Phosphate 13.6 mmol/Magnesium Sulfate 10 meq/ Calcium Gluconate 10 meq/ Multivitamins 10 ml/Chromium/ Copper/Manganese/ Seleni/Zn 1 ml/ Total Parenteral Nutrition/Amino Acids/Dextrose/ Fat Emulsion Intravenous 1,008 ml @ 42 mls/hr TPN CONT IV Last administered on 11/15/18at 23:33; Start 11/15/18 at 22:00; Stop 11/16/18 at 21:59; Status DC Simethicone (Gas-X) 80 mg [id number] PRN PO GAS / BLOATING; Start 11/15/18 at 16:45 Morphine Sulfate (Roxanol Conc) 5 mg PRN Q3HRS PRN SL MODERATE TO SEVERE PAIN Last administered on 11/16/18at 10:21; Start 11/16/18 at 09:15; Stop 11/16/18 at 11:27; Status DC Hydrocortisone Sodium Succinate (Solu-CORTEF) 100 mg 1X ONCE IV Last administered on 11/16/18at 11:45; Start 11/16/18 at 11:30; Stop 11/16/18 at 11:31; Status DC Diphenhydramine HCl (Benadryl) 25 mg PRN Q24HRS PRN IVP ITCHING Last administered on 11/16/18at 11:47; Start 11/16/18 at 11:30 Sodium Chloride 90 meq/Potassium Chloride 50 meq/ Potassium Phosphate 13.6 mmol/Magnesium Sulfate 10 meq/ Calcium Gluconate 10 meq/ Multivitamins 10 ml/Chromium/ Copper/Manganese/ Seleni/Zn 1 ml/ Total Parenteral Nutrition/Amino Acids/Dextrose/ Fat Emulsion Intravenous 1,008 ml @ 42 mls/hr TPN CONT IV Last administered on 11/16/18at 21:41; Start 11/16/18 at 22:00; Stop 11/17/18 at 21:59; Status DC Insulin Glargine (Lantus Syringe) 5 unit QHS SQ Last administered on 11/20/18at 22:23; Start 11/16/18 at 21:00 Sodium Chloride 90 meq/Potassium Chloride 50 meq/ Potassium Phosphate 13.6 mmol/Magnesium Sulfate 10 meq/ Calcium Gluconate 10 meq/ Multivitamins 10 ml/Chromium/ Copper/Manganese/ Seleni/Zn 1 ml/ Total Parenteral Nutrition/Amino Acids/Dextrose/ Fat Emulsion Intravenous 1,008 ml @ 42 mls/hr TPN CONT IV Last administered on 11/17/18at 21:49; Start 11/17/18 at 22:00; Stop 11/18/18 at 21:59; Status DC Sodium Chloride 90 meq/Potassium Chloride 50 meq/ Potassium Phosphate 13.6 mmol/Magnesium Sulfate 10 meq/ Calcium Gluconate 10 meq/ Multivitamins 10 ml/Chromium/ Copper/Manganese/ Seleni/Zn 1 ml/ Total Parenteral Nutrition/Amino Acids/Dextrose/ Fat Emulsion Intravenous 1,008 ml @ 42 mls/hr TPN CONT IV Last administered on 11/18/18at 21:10; Start 11/18/18 at 22:00; Stop 11/19/18 at 21:59; Status DC Sodium Chloride 90 meq/Potassium Chloride 50 meq/ Potassium Phosphate 13.6 mmol/Magnesium Sulfate 10 meq/ Calcium Gluconate 10 meq/ Multivitamins 10 ml/Chromium/ Copper/Manganese/ Seleni/Zn 1 ml/ Total Parenteral Nutrition/Amino Acids/Dextrose/ Fat Emulsion Intravenous 1,008 ml @ 42 mls/hr TPN CONT IV Last administered on 11/19/18at 21:21; Start 11/19/18 at 22:00; Stop 11/20/18 at 21:59; Status DC Insulin Human Lispro (HumaLOG) 0-5 UNITS TIDWMEALS SQ ; Start 11/20/18 at 12:00; Status UNV Dextrose (Dextrose 50%-Water Syringe) 12.5 gm PRN Q15MIN PRN IV SEE COMMENTS; Start 11/20/18 at 10:00; Status Cancel Sodium Chloride 90 meq/Potassium Chloride 50 meq/ Potassium Phosphate 13.6 mmol/Magnesium Sulfate 10 meq/ Calcium Gluconate 10 meq/ Multivitamins 10 ml/Chromium/ Copper/Manganese/ Seleni/Zn 1 ml/ Total Parenteral Nutrition/Amino Acids/Dextrose/ Fat Emulsion Intravenous 1,008 ml @ 42 mls/hr TPN CONT IV Last administered on 11/20/18at 22:15; Start 11/20/18 at 22:00; Stop 11/21/18 at 21:59 Active Scripts Active Reported Albuterol Sulfate Neb Soln (Albuterol Sulfate) 2.5 Mg/3 Ml Vial.neb 1 Vial NEB QID Hydrocodone-Apap 7.5-325/15 Soln (Hydrocodone Bit/Acetaminophen) 15 Ml Solution 15 Ml PO PRN Q6HRS PRN Levemir (Insulin Detemir) 100 Unit/1 Ml Vial 5 Unit SQ HS Vitals/I & O Vital Sign - Last 24 Hours 11/20/18 11/20/18 11/20/18 11/20/18 11:00 11:06 12:20 12:40 Temp 98.1 98.1 Pulse 101 Resp 18 B/P (MAP) 113/58 (76) Pulse Ox 98 99 O2 Delivery Room Air Room Air Room Air Room Air 11/20/18 11/20/18 11/20/18 11/20/18 12:40 15:00 15:32 16:49 Temp 98.0 98.0 98.0 98.0 Pulse 94 94 Resp 18 B/P (MAP) 120/58 (78) 120/58 (78) Pulse Ox 98 98 O2 Delivery Room Air Room Air Room Air Room Air O2 Flow Rate 2.0 11/20/18 11/20/18 11/20/18 11/20/18 17:16 18:13 19:00 19:30 Temp 98.2 98.2 Pulse 91 Resp 18 B/P (MAP) 108/57 (74) Pulse Ox 96 99 O2 Delivery Room Air Room Air Nasal Cannula Room Air O2 Flow Rate 2.0 11/20/18 11/20/18 11/21/18 11/21/18 20:00 23:00 03:00 07:00 Temp 98.4 98.9 98.3 98.4 98.9 98.3 Pulse 78 83 96 Resp 18 18 18 B/P (MAP) 134/61 (85) 114/46 (68) 165/57 (93) Pulse Ox 97 99 98 O2 Delivery Room Air Nasal Cannula Nasal Cannula Room Air O2 Flow Rate 2.0 2.0 11/21/18 08:27 Pulse Ox 98 O2 Delivery Room Air Intake and Output 11/20/18 11/20/18 11/21/18 14:59 22:59 06:59 Intake Total 120 ml Balance 120 ml Nutrition Consultation Dietary Evaluation: Recommendations by RD: PPN/TPN Comments: TPN day 4: 160 g dextrose, 45 g AA, 20 g lipid - continue rec continue clear liquds, encourage clear supplements prn Expected Outcomes/Goals: to meet > 75% est nutr needs via TPN and po intake - met via TPN, goal ongoing Malnutrition Findings: Muscle Mass (Severe): Severe Depletion Food and Nutrition Intake (Sev: <50% est energy req 5days Weight Status: Underweight TERRI MARTINS MD Nov 21, 2018 09:04
[2018-11-21] MEDS: PANTOPRAZOLE IV PUSH 40 MG VIAL. IVP SCH (09:09)
--- NOTE | 2018-11-21 10:08 | PDOC ---
Subjective: Subjective: reports to nurse that her breathing was slow yesterday and she had some chest discomfort after meds were given. They say possible DC tomorrow after TPN teaching. I asked about TPN - "I guess it's fine." Objective: Objective: D/w nurse - remains inpt - discharge held while home health situation and some financial issues were worked out. Also had palliative care meeting. Vital Signs: Vital Signs Date Time Temp Pulse Resp B/P (MAP) Pulse Ox O2 Delivery O2 Flow Rate FiO2 11/21/18 09:17 Room Air 11/21/18 08:27 98 11/21/18 07:00 98.3 96 18 165/57 (93) 98.3 11/21/18 03:00 2.0 Labs: Laboratory Tests Test 11/20/18 11:05 11/20/18 15:41 11/20/18 16:57 11/20/18 20:33 Glucose (Fingerstick) 149 mg/dL (70-99) 274 mg/dL (70-99) 331 mg/dL (70-99) 183 mg/dL (70-99) Test 11/20/18 23:50 11/21/18 06:11 Glucose (Fingerstick) 202 mg/dL (70-99) 200 mg/dL (70-99) PE: GEN: thin LUNGS: room air NEURO/PSYCH: A & O 3 A/P: Metastatic lung cancer w/ mediastinal adenopathy and esophageal compression - on TPN, previously discussed follow-up w/ [facility] for potential feeding tube placement w/ IR Esophageal stent in place, dysphagia/dysmotility - on PPI, also has PRN Gas-X -- Awaiting DC. CANDICE ZURITA Nov 21, 2018 10:08
[2018-11-21] MEDS ORDERED: FENT1PAT15 TP (10:59)
[2018-11-21 11:00] VITALS: BP 135/78
--- NOTE | 2018-11-21 11:02 | SNU/HH DC ---
DISCHARGE WITH HOME HEALTH DISCHARGE INFORMATION: Discharge Date: Nov 21, 2018 Final Diagnosis: Problems Medical Problems: (1) Abnormal weight loss Status: Chronic (2) Dysphagia Status: Acute (3) Esophageal dysfunction Status: Acute (4) Esophageal stricture Status: Acute (5) Malnutrition Status: Acute (6) Malnutrition Status: Acute (7) Metastatic lung cancer (metastasis from lung to other site) Status: Acute Condition on Discharge: Stable CODE STATUS: Code Status: Full HOME HEALTH: Face to Face: I certify this patient is under my care and that I, or a nurse practitioner or physician's event marketing assistant working with me, had a face to face encounter that meets the physician face to face encounter requirements with this patient on 11/21/18 Medical Complications: Other Usp For: Admin/Educate Injections RN For Eval/Treatment: Yes Physical Therapy For: Evalulation/Treatment Occupational Therapy For: Evaluation/Treatment 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 For: Community Resources Pt Meets Homebound Status: Unsteady balance w/ amb, POST DISCHARGE ORDERS: Activity Instructions for Disc: Activity as tolerated Weight Bearing Status after Di: No restrictions DIET AFTER DISCHARGE: Wound/Incision Care: Keep wound/cast CDI CHECKS AFTER DISCHARGE: Checks after discharge: Check blood sugar, ac/hs CERTIFICATION STATEMENT: Certification Statement: Certification Statement: Based on the above finding, I certify that this patient is confined to the home and needs intermittent mcc care, physical therapy and/or speech therapy, or continues to need occupational therapy.~ This patient is under my care, and I have initiated the establishment of the plan of care.~ This patient will be followed by myself or a community physician who will periodically review the plan of care. Home Meds Active Scripts Fentanyl (FENTANYL 25mcg/hr) 1 Each Patch.td72, 1 PATCH TP Q3DAYS for PAIN for 30 Days, #30 PATCH Prov:ARIANA WADSWORTH MD 11/21/18 Ondansetron Hcl (ZOFRAN) 4 Mg Tablet, 1 TAB PO Q6HRS for nausea for 10 Days, #40 TAB Prov:ARIANA WADSWORTH MD 11/16/18 Reported Medications Albuterol Sulfate (ALBUTEROL SULFATE NEB SOLN) 2.5 Mg/3 Ml Vial.neb, 1 VIAL NEB QID for copd, #50 VIAL 11/11/18 Insulin Detemir (LEVEMIR) 100 Unit/1 Ml Vial, 5 UNIT SQ HS for Diabetes, VIAL 08/25/18 Discontinued Reported Medications Hydrocodone Bit/Acetaminophen (HYDROCODONE-APAP 7.5-325/15 SOLN ) 15 Ml Solution, 15 ML PO PRN Q6HRS PRN for PAIN 09/29/18 ARINAA WADSWORTH MD Nov 21, 2018 11:02
--- NOTE | 2018-11-21 11:37 | DS ---
DATE OF DISCHARGE: 11/21/2018 HOSPITAL COURSE: The patient is a 73-year-old female patient with stage IIIB metastatic lung cancer who was admitted with abnormal weight loss and dysphagia. She has some esophageal stricture for which she has esophageal stent placed by Dr. Olsen. She was evaluated by the Gastroenterology team as well as the surgical team and she was not found suitable candidate for gastrostomy tube placement and therefore, PICC line was placed and was started on TPN and arrangement has been made for her to be discharged home to continue with TPN on home health. She would have also adoption social worker to assist her and her to apply for Medicaid. PHYSICAL EXAMINATION: GENERAL: When I examined her this morning, she was sitting comfortably in her bed, in no apparent respiratory distress. She was pale, cachectic, but no jaundice, cyanosis or thyromegaly. No jugular venous distention or limb edema. VITAL SIGNS: Her heart rate was 96, blood pressure 165/57, temperature was 98.3, respiratory rate was 18 and oxygen saturation was 98%. HEAD, EYES, EARS, NOSE AND THROAT: Showed normocephalic, atraumatic. NECK: Supple. HEART: Showed normal first and second heart sounds. No gallop or murmur. CHEST: Clear to auscultation. No crepitation or rhonchi. ABDOMEN: Scaphoid, soft, nontender. NEUROLOGIC: She is awake, alert, responding appropriately. All cranial nerves are intact. She moves extremities without difficulty. She ambulates without assistance or assistive devices. LABORATORY DATA: Showed white cell count of 6100, hemoglobin 10, hematocrit 31, MCV 90 and platelet count 322,000. Her most recent chemistry showed a serum sodium 137, potassium 4.8, chloride 101, bicarbonate 35, anion gap of 1, BUN 12, creatinine 0.4. Estimated GFR was 156 mL per minute. Her glucose was 304, calcium was 8.8, phosphorus 3.5, magnesium was 1.8. DISCHARGE MEDICATIONS: She will be discharged home to continue on TPN. Continue with Lantus 5 units at bedtime. Continue with insulin sliding scale, hydrocodone/APAP 7.5/325 in 15 mL to take 10 mL every 6 hours. She is also on fentanyl patch 25 mcg topically q. 72 hours as well as Protonix 40 mg daily. FINAL DISCHARGE DIAGNOSES: 1. Abnormal weight loss. 2. Dysphagia. 3. Esophageal dysfunction. 4. Esophageal stricture, status post stent deployment. 5. Metastatic lung cancer stage IIIB non-small lung cancer. 6. Type 2 diabetes mellitus, suboptimally now on Lantus and NovoLog insulin as mentioned sliding scale. ARIANA WADSWORTH MD DR: MAXIMILIANO/karolina JOB#: [id number] / [id number]
--- NOTE | 2018-11-21 11:47 | NUR ---
Home infusion company called to confirm TPN education for pt and . Stated they will be here today to provide said education. Roderick () and eFrnanda (pt) informed.
--- NOTE | 2018-11-21 12:26 | NUR ---
SS following up with discharge planning. [facility], ; fax [phone], contacted SS and confirmed that they will supply pt with TPN medicaid pending for up to ninety days. [facility] sent letter to pt explaining Medicaid pending. Pt signed letter and SS faxed to [facility]. Pt was notified that if Medicaid is not approved at the end of ninety days they will be responsible for TPN costs. Pt and spouse reported understanding. contacted Junaid at [facility] and was provided with a teach time of between 1500 and 1600 with RN, Ambrose. [facility], ; fax [phone], informed and scheduling a point of contact visit with pt today. Pt, pt's spouse, and pt's RN notified. Pt and pt's spouse reported that family would transport pt to home.
--- NOTE | 2018-11-21 17:30 | NUR ---
Discharge: Pt DC to home with [facility] per private car accompanied by . Spent just over 1 hour with infusion Nurse from [facility] for TPN administration teaching. DC'ed with rx for lortab liquid, DC instructions. Dr. Gilbert to write rx for sliding scale humalog pen and leave at nurse station on 1S at [facility] for to pepper picker. Discussed PICC line care, dressing changes, diet, and SSI training, which home health will discuss with them as well. No concerns.
== END 2018-11-21 17:30 | disposition home health service (06) | DRG 391 ==
LOC: ER 11:01 → 4 NORTH 12:11
PROVIDERS: ADMIT Internal Medicine; ATTEND Internal Medicine
PROC: 0JH63XZ Insertion of Tunneled Vascular Access Device into Chest Subcutaneous Tissue and Fascia, Percutaneous Approach (ICD-10-PCS; principal; 2018-11-15)
PROC: 02HV33Z Insertion of Infusion Device into Superior Vena Cava, Percutaneous Approach (ICD-10-PCS; 2018-11-15)
PROC: B5181ZA Fluoroscopy of Superior Vena Cava using Low Osmolar Contrast, Guidance (ICD-10-PCS; 2018-11-15)
PROC: B548ZZA Ultrasonography of Superior Vena Cava, Guidance (ICD-10-PCS; 2018-11-15)
DX: K22.2 Esophageal obstruction (principal); E43 Unspecified severe protein-calorie malnutrition; C78.1 Secondary malignant neoplasm of mediastinum; C34.12 Malignant neoplasm of upper lobe, left bronchus or lung; R64 Cachexia; Z68.1 Body mass index [BMI] 19.9 or less, adult; D64.9 Anemia, unspecified; E11.9 Type 2 diabetes mellitus without complications; I25.10 Atherosclerotic heart disease of native coronary artery without angina pectoris; K22.4 Dyskinesia of esophagus; Z80.1 Family history of malignant neoplasm of trachea, bronchus and lung; Z80.3 Family history of malignant neoplasm of breast; Z80.41 Family history of malignant neoplasm of ovary; Z83.3 Family history of diabetes mellitus; Z85.118 Personal history of other malignant neoplasm of bronchus and lung; Z87.891 Personal history of nicotine dependence; Z92.3 Personal history of irradiation; Z88.2 Allergy status to sulfonamides; Z88.8 Allergy status to other drugs, medicaments and biological substances; Z79.899 Other long term (current) drug therapy; R59.0 Localized enlarged lymph nodes
CPT/HCPCS: 36415; 36558; 71045; 71046; 71260; 76937; 77001; 80048; 80053; 82962; 83735; 84100; 84478; 85025; 85027; 85610; 85730; 94640; 94760; 96360; 99152; C1751; C1892; C9113; J0610; J1200; J1720; J1815; J3010; J3475; J3480; J7030; J7613; Q9967; 97535; 99285-25; G0378